=== PATIENT | female | born 1980 | race Caucasian/White ===

== ENCOUNTER 2024-09-06 08:52 | Emergency (ER) | payer MEDICAID ==
[~2024-09-06] VITALS: Ht 152.4 cm; Wt 91.3 kg
[2024-09-06 08:57] VITALS: BP 151/78; PULSE 80; RESP 18; O2SAT 100
[2024-09-06 09:44] VITALS: TEMP 96.9
== END 2024-09-06 09:47 | disposition home or self-care (01) ==
LOC: ER 08:53
DX: E11.69 Type 2 diabetes mellitus with other specified complication (principal); M86.8X8 Other osteomyelitis, other site; Z88.5 Allergy status to narcotic agent; Z79.4 Long term (current) use of insulin
CPT/HCPCS: 99281

== ENCOUNTER 2024-10-11 10:15 | Emergency (ER) | payer MEDICAID ==
[~2024-10-11] VITALS: Ht 172.7 cm; Wt 100.6 kg
[~2024-10-11 10:15] MED LIST: ASEN5TAB SL; ATOR20TA66 PO; BUPR-94 PO; CLON0.2T PO; DIVA-74 PO; DIVA125C10 PO; GABA-1405 PO; HYDR-3965 PO; HYDR50CA5 PO; LANTUS SUBCUT; LOSA-415 PO; OMEP20TA23 PO; TIZA4CAP PO; TRAZ-251 PO
[2024-10-11 10:18] VITALS: TEMP 98
--- NOTE | 2024-10-11 10:54 | Physician Documentation ---
History of Present Illness ~ Chief Complaint: Wound Re-Check Stated Complaint: WOUND RECHECK Time Seen by MD: 10:20 Primary Medical Doctor: [facility] 43-year-old female presents to the ED for a wound check on her right middle toe after having it partially amputated. Denies any pain denies any swelling denies any fevers in his requesting a Toradol shot. Also requesting to have her bandage were placed. States she has been following up with the wound care as directed Day of Onset of Wound: October 11, 2024 Tetanus within 5 years?: No Medication Reconciliation Allergies: Coded Allergies: fentanyl (Unverified Allergy, Severe, 10/11/24) prazosin (Unverified Allergy, Severe, 10/11/24) Scheduled Asenapine Maleate (Saphris), 1 TAB SL TID, (Reported) Atorvastatin Calcium (Atorvastatin Calcium), 40 MG PO DAILY Bupropion Hcl (Wellbutrin Xl), 300 MG PO DAILY Clonidine Hcl (Clonidine Hcl), 1 TAB PO BID Divalproex Sodium (Divalproex Sodium), 750 MG PO HS Divalproex Sodium (Divalproex Sodium), 2 TAB PO BIDBL Gabapentin (Gabapentin), 1 TAB PO TID Insulin Glargine,Hum.rec.anlog* (Lantus*), 21 UNITS SUBCUT BID, (Reported) Losartan Potassium* (Cozaar*), 1 TAB PO DAILY, (Reported) Omeprazole Magnesium (Prilosec Otc), 1 TAB PO BID, (Reported) Trazodone HCl (Trazodone HCl), 3 TAB PO HS Scheduled PRN Hydrocodone Bit/Acetaminophen 5/325 MG ([place] 5/325 MG), 1-2 TAB PO Q6H PRN for pain, (Reported) Hydroxyzine Pamoate (Hydroxyzine Pamoate), 1 CAP PO Q6H PRN for for anxiety/agitation Tizanidine Hcl (Zanaflex), 1 CAP PO Q8H PRN for muscle spasms, (Reported) Discontinued Medications Acetaminophen (Tylenol Arthritis), 2 TAB PO Q8H PRN for pain, (Reported) Lurasidone HCl (Latuda), 1 TAB PO DAILY, (Reported) Lurasidone HCl (Latuda), 1 TAB PO HS, (Reported) Sertraline HCl (Sertraline HCl), 2 TAB PO DAILY, (Reported) Review of Systems All Other Systems at this time: Reviewed and Negative ROS As stated above in the HPI, otherwise all systems are reviewed and negative. Physical Exam Vital Signs: Temperature: 98.0, Source: Temporal, Heart Rate: 80, Respiratory Rate: 18, BP: 138/40, Pulse Oximetry: 100, Weight: 100.600 Progress Results/Orders Results/Orders Completed Orders - HERVE HARE NP Ketorolac Trometh 15mg/Ml Vial (Toradol (10/11/24 10:50) * Additional Wound Care Orders (10/11/24 10:53) Medications Received in ER Medications (Trade) Dose Ordered Sig/Brent Route PRN Reason Start Time Stop Time Status Last Admin Dose Admin (Toradol injection) 15 mg ONCE ONCE IM 10/11/24 10:50 10/11/24 10:51 DC 10/11/24 11:10 15 MG Vital Signs 10/11/24 10/11/24 10/11/24 10/11/24 10:18 11:10 11:13 11:38 Temp 98.0 Pulse 80 68 63 Resp 18 15 15 15 B/P (MAP) 138/40 115/59 (77) 130/60 Pulse Ox 100 99 100 Medical Decision Making Findings Patient was redressed her wound did not show any signs of infection erythema or drainage Departure Disposition: 01 HOME / SELF CARE / HOMELESS Impression: Primary Impression: Non-healing surgical wound Condition: Stable Referrals: NO PRIMARY CARE PROVIDER (PCP) Education Educated: Patient Educated regarding: diagnosis Signature Scribe Signature: j Attestation: The note accurately reflects work and decisions made by me.Herve Dimas NP 10/11/24 18:10 HERVE HARE NP October 11, 2024 10:54
[2024-10-11] MEDS: ketorolac trometh 15mg/ml vial 15 MG/ML ML IM ONE (11:10)
[2024-10-11 11:38] VITALS: BP 130/60; PULSE 63; RESP 15; O2SAT 100
== END 2024-10-11 11:36 | disposition home or self-care (01) ==
LOC: ER 10:15
DX: T81.89XA Other complications of procedures, not elsewhere classified, initial encounter (principal); Z88.8 Allergy status to other drugs, medicaments and biological substances; Z79.899 Other long term (current) drug therapy; Z79.4 Long term (current) use of insulin
CPT/HCPCS: 96372; 99283; J1885; A6449

== ENCOUNTER 2024-11-12 11:43 | Emergency (ER) | payer MEDICAID ==
[~2024-11-12] VITALS: Ht 172.7 cm; Wt 100.8 kg
[2024-11-12 11:44] VITALS: TEMP 97.9
[2024-11-12 13:11] VITALS: BP 178/83; PULSE 57; RESP 10; O2SAT 95
--- NOTE | 2024-11-12 14:09 | Physician Documentation ---
History of Present Illness ~ Chief Complaint: Wound Stated Complaint: SPIDER BITE Time Seen by MD: 12:19 Primary Medical Doctor: [facility] Mode of Arrival: Ambulatory HPI 43 year old female with history of diabetes reports LLE "spider bite" and infection as well as recent bilateral lower extremity swelling. Denies fever, N/V/D, abdominal pain, urinary symptoms. Tetanus within 5 years?: No Medication Reconciliation Allergies: Coded Allergies: fentanyl (Unverified Allergy, Severe, 10/11/24) prazosin (Unverified Allergy, Severe, 10/11/24) Scheduled Asenapine Maleate (Saphris), 1 TAB SL TID, (Reported) Atorvastatin Calcium (Atorvastatin Calcium), 40 MG PO DAILY Bupropion Hcl (Wellbutrin Xl), 300 MG PO DAILY Clonidine Hcl (Clonidine Hcl), 1 TAB PO BID Divalproex Sodium (Divalproex Sodium), 750 MG PO HS Divalproex Sodium (Divalproex Sodium), 2 TAB PO BIDBL Gabapentin (Gabapentin), 1 TAB PO TID Insulin Glargine,Hum.rec.anlog* (Lantus*), 21 UNITS SUBCUT BID, (Reported) Losartan Potassium* (Cozaar*), 1 TAB PO DAILY, (Reported) Omeprazole Magnesium (Prilosec Otc), 1 TAB PO BID, (Reported) Trazodone HCl (Trazodone HCl), 3 TAB PO HS Scheduled PRN Hydrocodone Bit/Acetaminophen 5/325 MG ([place] 5/325 MG), 1-2 TAB PO Q6H PRN for pain, (Reported) Hydroxyzine Pamoate (Hydroxyzine Pamoate), 1 CAP PO Q6H PRN for for anxiety/agitation Tizanidine Hcl (Zanaflex), 1 CAP PO Q8H PRN for muscle spasms, (Reported) Review of Systems All Other Systems at this time: Reviewed and Negative Physical Exam Vital Signs: RN Vital Signs have been reviewed: Yes, Temperature: 97.9, Source: Oral, Heart Rate: 57, Respiratory Rate: 10, BP: 178/83, Pulse Oximetry: 95, Weight: 100.800 Oxygen Flow Rate: 0 Physical Exam HEENT: PERRL, moist oral mucosa, EOMI Pulmonary: No respiratory distress MSK: no deformity; 1-2+ BLE pitting edema Skin: w/d/i, no rash; LLE with 1cm diameter skin ulceration to L [place], with small pustules inferiorly surrounded by erythema. Neuro: alert, nonfocal Psych: normal affect Progress Results/Orders Results/Orders Orders - RODDY VILLALBA MD Cbc/Diff (11/12/24 12:23) CMP (11/12/24 12:23) Urinalysis, Cult If Indicated (11/12/24 12:23) Vital Signs 11/12/24 11/12/24 11/12/24 11:44 13:11 13:13 Temp 97.9 Pulse 78 57 Resp 16 10 B/P (MAP) 174/82 178/83 (114) Pulse Ox 100 95 O2 Flow Rate 0 0 Medical Decision Making Findings 43 year old female as above. Before workup could be completed, patient elected to leave AMA despite thorough discussion of the risks of leaving. Differential Dx:Considerations: Include: Abscess, Cellulitis, Dressing change, Healing wound Departure Disposition: LEFT AGAINST MEDICAL ADVICE Impression: Primary Impression: Leg swelling Condition: Stable Referrals: NO PRIMARY CARE PROVIDER (PCP) Education Educated: Patient Educated regarding: need for follow up Signature Scribe Signature: . Attestation: . RODDY VILLALBA MD Nov 12, 2024 14:08
== END 2024-11-12 14:16 | disposition left against medical advice (07) ==
LOC: ER 11:44
DX: M79.89 Other specified soft tissue disorders (principal); E11.9 Type 2 diabetes mellitus without complications; Z88.8 Allergy status to other drugs, medicaments and biological substances; Z79.899 Other long term (current) drug therapy
CPT/HCPCS: 99284

== ENCOUNTER 2025-01-10 07:56 | Inpatient (IN) | payer MEDICAID ==
[~2025-01-10] VITALS: Ht 172.7 cm; Wt 109.9 kg
--- NOTE | 2025-01-10 08:11 | ELECTROCARDIOGRAPH REPORT ---
[facility] Test Date: 2025-01-10 Test Time: 08:09:48 Pat Name: NINA FERRER Department: [facility] Patient ID: [id number] Room: Gender: F [employer]: : 1980 Requested By: DEBORAH GOODWIN Order Number: [id number] Reading MD: Dr. Deborah Goodwin Measurements Intervals [place] Rate: 62 P: 58 PA: 161 QRS: -15 QRSD: 93 T: 40 QT: 447 QTc: 454 Interpretive Statements Sinus rhythm Borderline left axis deviation Borderline low voltage, extremity leads RSR' in V1 or V2, probably normal variant ST elev, probable normal early repol pattern Electronically Signed On 01-10-2025 12:42:[address] Deborah Goodwin Please click the below link to view image of tracing.
[2025-01-10 08:24] LABS: MEAN PLATELET VOLUME 8.1 FL (7.4-10.4); RED CELL DISTRIBUTION WIDTH 16.0 % (11.5-14.5)
[2025-01-10 08:34] LABS: CREATININE 0.89 MG/DL (0.40-0.90); TOTAL CARBON DIOXIDE 29.3 MMOL/L (24-32); eCRCL 80 ML/MIN; eGFR 68 ML/MIN
--- NOTE | 2025-01-10 08:39 | RADIOLOGY REPORT ---
CHEST RADIOGRAPH Indication: CP Technique: Single frontal view of the chest was obtained COMPARISON: None FINDINGS: Lines and Tubes: None Lungs: Clear Pleura: No effusion. No pneumothorax. Cardiomediastinal contours: Unremarkable Bones: Unremarkable IMPRESSION: 1. No acute disease.
[2025-01-10 08:57] LABS: PRO BRAIN NATRIURETIC PEPTIDE 620 PG/ML (0-125)
--- NOTE | 2025-01-10 10:34 | Physician Documentation ---
History of Present Illness ~ General Chief Complaint: See Chief Complaint Stated Complaint: SOB/LEG SWELLING Time Seen by MD: 10:32 OK to notify your PCP?: Yes Primary Medical Doctor: [facility] Source: patient, RN/, RN notes reviewed, old records Mode of Arrival: EMS Exam Limitations: no limitations History of Present Illness Initial Comments This patient lives at the [facility] and has a constellation of symptoms. Patient states that she has been having increasing edema and swelling of her body but specifically her right lower extremity. Patient also has worsening diabetic foot ulcers that have been draining. She states she has been having fevers chills shakes for the last two days or so but basically two weeks she has been having this gradual swelling with intermittent nausea. Has not taken her blood pressure medications this morning. Patient has been depressed. Patient is oth erwise not feeling well denies any shortness of breath no recent travel or trauma. She has had multiple broken bones specifically her spine and has some chronic pain issues as well. She is here for evaluation. Medication Reconciliation Allergies: Coded Allergies: fentanyl (Unverified Allergy, Severe, 10/11/24) prazosin (Unverified Allergy, Severe, 10/11/24) Scheduled Asenapine Maleate (Saphris), 1 TAB SL TID, (Reported) Atorvastatin Calcium* (Lipitor*), 1 TAB PO DAILY, (Reported) Bupropion HCl (Wellbutrin Sr), 1 TAB PO DAILY, (Reported) Clonidine HCl (Clonidine HCl), 1 TAB PO Q12H, (Reported) Divalproex Sodium (Depakote), 1 TAB PO HS, (Reported) Divalproex Sodium (Depakote), 1 TAB PO BID, (Reported) Gabapentin (Gabapentin), 1 TAB PO Q8H, (Reported) Insulin Glargine,Hum.rec.anlog* (Lantus*), 21 UNITS SUBCUT BID, (Reported) Losartan Potassium* (Cozaar*), 1 TAB PO DAILY, (Reported) Omeprazole Magnesium (Prilosec Otc), 1 TAB PO BID, (Reported) Trazodone Hcl (Trazodone Hcl), 1 TAB PO HS, (Reported) Scheduled PRN Hydrocodone Bit/Acetaminophen 5/325 MG ([place] 5/325 MG), 1-2 TAB PO Q6H PRN for pain, (Reported) Hydroxyzine Pamoate (Hydroxyzine Pamoate), 1 CAP PO Q6H PRN for PRN, (Reported) Tizanidine Hcl (Zanaflex), 1 CAP PO Q8H PRN for muscle spasms, (Reported) Discontinued Medications Atorvastatin Calcium (Atorvastatin Calcium), 40 MG PO DAILY Discontinued Reason: patient no longer taking Bupropion Hcl (Wellbutrin Xl), 300 MG PO DAILY Discontinued Reason: patient no longer taking Clonidine Hcl (Clonidine Hcl), 1 TAB PO BID Discontinued Reason: patient no longer taking Divalproex Sodium (Divalproex Sodium), 750 MG PO HS Discontinued Reason: patient no longer taking Divalproex Sodium (Divalproex Sodium), 2 TAB PO BIDBL Discontinued Reason: patient no longer taking Gabapentin (Gabapentin), 1 TAB PO TID Discontinued Reason: patient no longer taking Hydroxyzine Pamoate (Hydroxyzine Pamoate), 1 CAP PO Q6H PRN for for anxiety/agitation Discontinued Reason: patient no longer taking Trazodone HCl (Trazodone HCl), 3 TAB PO HS Discontinued Reason: patient no longer taking Past Medical History Past Medical History: Hypertension, Diabetes, Chronic Back Pain Past Surgical History: orthopedic surgeries, tubal ligation Smoking Status: Current every day smoker Alcohol Use: None Drug Use: marijuana Review of Systems All Other Systems at this time: Reviewed and Negative Physical Exam Physical Exam Vital Signs: RN Vital Signs have been reviewed: Yes, Temperature: 98.4, Source: Oral, Heart Rate: 78, Respiratory Rate: 16, BP: 154/73, Pulse Oximetry: 98, Weight: 109.900 Oxygen Flow Rate: 0 Physical Exam General: The patient is well developed, well nourished, nontoxic appearing and is in no acute distress. Uncomfortable appearing Skin: [place], warm and dry with no rashes. HEENT: Head was normocephalic and atraumatic. Eyes - pupils equal, round, reactive to light and accommodation. Extraocular movements were intact. Conjunctivae were nonicteric. The mouth and oropharynx were clear with moist mucous membranes. There were no pharyngeal exudates or erythema. Neck: Supple and nontender. There was no jugular venous distention, lymphadenopathy, thyromegaly or masses. Chest: Clear to auscultation bilaterally without wheezes, rales or rhonchi. No accessory muscle use. No dullness to percussion. Heart: Rate regular and rhythmic. S1, S2. No murmurs. Palpation of the chest wall was normal. No rubs or thrills. Abdomen: Soft, nontender and nondistended. Positive bowel sounds. No guarding or rebound. No hepatosplenomegaly or palpable masses. Extremities: Pitting bilateral edema however the right lower extremity has a edema from the ankle to the hip with increased girth no Homans sign no palpable cords. The patient moves all extremities. Pulses were equal and symmetric. 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 On the 5th MP joint is a area of erythema and a 2 cm deep ulcer diabetic ulcer, left ankle there is a large 3 cm open diabetic ulcer with a ring of erythema. Neurologic: Motor sensory grossly intact. Psychologic: The patient was oriented to person, place and time. The patient demonstrated appropriate judgement and insight. Progress Progress Note 2:22 p.m. Discussed the case with hospitalist for admission Results/Orders Reviewed/noted all lab results: Yes Results/Orders Orders - DEBORAH GOODWIN MD Chest,Single View (01/10/25 07:59) Monitor (01/10/25 07:59) Saline Lock (01/10/25 07:59) Oxygen (01/10/25 07:59) Electrocardiogram (01/10/25 07:59) Culture Blood (01/10/25 10:49) Vl Venous (01/10/25 10:49) Culture Blood (01/10/25 13:14) Page Hospitalist (01/10/25 13:52) Fill Out Med Reconciliation (01/10/25 13:52) Losartan Potass Tablet (Cozaar Tablet) (01/10/25 14:30) Hydromorphone 1 Mg/Ml/Pf (Dilaudid Inj.) (01/10/25 15:00) Completed Orders - DEBORAH GOODWIN MD Chest,Single View (01/10/25 07:59) Cbc/Diff (01/10/25 07:59) BMP (01/10/25 07:59) PBNP (01/10/25 07:59) Electrocardiogram (01/10/25 07:59) Hs Troponin I W Calculations (01/10/25 07:59) Hs Troponin I W Calculations (01/10/25 09:59) Hs Troponin I W Calculations (01/10/25 10:59) Procalcitonin (01/10/25 10:49) ESR (01/10/25 10:49) Lacticsepsis (01/10/25 10:49) Vancomycin/Ns 1 Gm Add-[place] (Vancomyc (01/10/25 10:50) Ceftriaxone 2gm/D5w 50ml Bag (Rocephin 2 (01/10/25 10:50) Vl Venous (01/10/25 10:49) C-Reactive Protein (01/10/25 08:16) Liver Panel (01/10/25 08:16) Hydromorphone 1 Mg/Ml/Pf (Dilaudid Inj.) (01/10/25 13:55) Clonidine Tablet (Catapres Tablet) (01/10/25 14:30) Medications Received in ER Medications (Trade) Dose Ordered Sig/Brent Route PRN Reason Start Time Stop Time Status Last Admin Dose Admin Vancomycin HCl 250 ml @ 166 mls/hr ONCE ONCE IV 01/10/25 10:50 01/10/25 12:20 DC 01/10/25 11:33 166 MLS/HR Ceftriaxone Sodium/Dextrose 50 ml @ 100 mls/hr ONCE ONCE IV 01/10/25 10:50 01/10/25 11:19 DC 01/10/25 11:03 100 MLS/HR (Dilaudid inj.) 1 mg ONCE ONCE IV 01/10/25 13:55 01/10/25 13:56 DC 01/10/25 14:24 1 MG (Catapres tablet) 0.2 mg ONCE PO 01/10/25 14:30 01/10/25 14:57 DC 01/10/25 14:47 0.2 MG (Cozaar tablet) 25 mg ONCE PO 01/10/25 14:30 01/10/25 14:45 25 MG Vital Signs 01/10/25 01/10/25 01/10/25 01/10/25 08:06 08:22 09:25 09:27 Temp 98.4 Pulse 65 66 Resp 16 18 B/P (MAP) 168/87 129/56 (80) Pulse Ox 95 96 O2 Delivery Room Air* O2 Flow Rate 0 0 FiO2 N/A 01/10/25 01/10/25 01/10/25 01/10/25 10:21 11:40 12:32 14:24 Pulse 78 81 79 Resp 16 18 16 16 B/P (MAP) 154/73 (100) 162/85 (110) 177/78 (111) Pulse Ox 98 99 100 O2 Flow Rate 0 0 0 01/10/25 14:45 Pulse 70 Laboratory Tests Test 01/10/25 08:16 01/10/25 08:30 01/10/25 11:25 01/10/25 12:11 White Blood Count 8.2 Red Blood Count 4.62 Hemoglobin 11.0 L Hematocrit 35.0 Mean Corpuscular Volume 75.7 L Mean Corpuscular Hemoglobin 23.9 L Mean Corpuscular Hemoglobin Concent 31.5 L Red Cell Distribution Width 16.0 H Platelet Count 400 Mean Platelet Volume 8.1 Neutrophils (%) (Auto) 65.1 Lymphocytes (%) (Auto) 21.9 Monocytes (%) (Auto) 9.9 Eosinophils (%) (Auto) 2.6 Basophils (%) (Auto) 0.5 Neutrophils # (Auto) 5.3 Lymphocytes # (Auto) 1.8 Monocytes # (Auto) 0.8 Eosinophils # (Auto) 0.2 Basophils # (Auto) 0.0 CBC Comment Erythrocyte Sedimentation Rate 27 H Sodium Level 135 Potassium Level 4.4 Chloride Level 98 L Carbon Dioxide Level 29.3 Anion Gap 8 Blood Urea Nitrogen 9 Creatinine 0.89 Estimated GFR/1.73 m2 68 BUN/Creatinine Ratio 10.1 Glucose Level 206 H Calcium Level 9.1 Total Bilirubin 0.3 Direct Bilirubin 0.1 Aspartate Amino Transf (AST/SGOT) 20 Alanine Aminotransferase (ALT/SGPT) 27 Alkaline Phosphatase 102 Troponin I High Sensitivity 7 6 C-Reactive Protein 1.72 H Pro-B-Type Natriuretic Peptide 620 H Total Protein 8.0 Albumin 3.4 Globulin 4.6 H Albumin/Globulin Ratio 0.7 L Chemistry Comments SARS-CoV-2 Antigen (Rapid) Negative Procalcitonin < 0.05 Troponin I High Sens Percent Delta 14 Troponin I Hi Sens Absolute Change -1 Test 01/10/25 13:10 Lactic Acid Level 1.3 Troponin I High Sensitivity 7 Troponin I High Sens Percent Delta 16 Troponin I Hi Sens Absolute Change 1 Re-Evaluation Re-Evaluation : Re-Evaluation: Improved Progress Patient received some pain medications and is feeling a bit better. Patient unfortunately has been off her medications she has a infection MRI will be ordered of her foot to rule out possible osteomyelitis. She has a diabetic foot ulcer. Laboratory work shows an elevated sed rate of 27. However hemoglobin hematocrit is normal at 11 and 35 MCV 75 white count 8 without a left shift. Chemistry has negative troponins blood pressure is quite high she was given clonidine and losartan. She also received pain medications. Chemistries were reassuring and within normal limits. Glucose is 206. C-reactive protein is elevated at 1.72. Lactic acid is reassuring at 1.3 and a negative procalcitonin. Patient received vancomycin and Rocephin. Blood pressure was treated it is quite elevated her pain was treated and was started on antibiotics. She had significant peripheral edema. Her vascular ultrasound was surprisingly negative for DVT. Patient has had multiple amputations already. Patient was then admitted to the hospitalist service for further workup and care. Continuous epic [facility] interpretation shows normal sinus rhythm heart rate 80s, no ectopy, normal, my interpretation. Pulse oximetry monitor interpretation shows normal oxygenation at 99% room air, normal, my interpretation. EKG/XRAY/CT/US/VASC/MRI Chest X-Ray : Additional Comments CHEST RADIOGRAPH Indication: CP Technique: Single frontal view of the chest was obtained COMPARISON: None FINDINGS: Lines and Tubes: None Lungs: Clear Pleura: No effusion. No pneumothorax. Cardiomediastinal contours: Unremarkable Bones: Unremarkable IMPRESSION: 1. No acute disease. Medical Decision Making Additional info obtained from: old records Departure Disposition: ADMITTED INPATIENT Admitted to Inpatient Unit: yes, to hospitalist Admission Level of Care: Ortho with Tele Impression: Primary Impression: Diabetic foot ulcer Qualified Codes: E11.621 - Type 2 diabetes mellitus with foot ulcer; L97.402 - Non-pressure chronic ulcer of unspecified heel and midfoot with fat layer exposed Additional Impressions: Generalized weakness Accelerated hypertension Delirium Condition: Fair Referrals: NO PRIMARY CARE PROVIDER (PCP) Education Educated: Patient Educated regarding: diagnosis Critical Care Note Total Time (mins): 45 Critical Care Note The very real possibility of a deterioration of this patient's condition required the highest level of my preparedness for sudden, emergent intervention. I provided critical care services, which included medication orders, frequent reevaluations of the patient's condition and response to treatment, ordering and reviewing test results, and discussing the case with various consultants. Excludes time spent performing separately billable procedures. The critical care time associated with the care of the patient was. 45 minutes Signature Scribe Signature: . Attestation: The note accurately reflects work and decisions made by me.Deborah Goodwin MD 01/10/25 10:34 DEBORAH GOODWIN MD Jan 10, 2025 10:34
[2025-01-10] MEDS: CefTRIAXone 2gm/D5W 50ml BAG 50 ML IV ONE (11:03)
[2025-01-10] MEDS: vancomycin/NS 1 GM ADD-VANTAGE 250 ML IV ONE (11:33)
--- NOTE | 2025-01-10 11:59 | VASCULAR REPORT ---
Right lower extremity venous duplex Clinical History: edema Comparison: None Findings: Duplex Doppler evaluation of the deep venous system of the right lower extremity from the common femo ral vein to the popliteal vein including color Doppler and spectral/pulsed waveform analysis was perf ormed. The bilateral common femoral vein demonstrates appropriate compressibility and waveform variability. There is compressibility/patency of the great saphenous vein at the proximal thigh. The femoral vein demonstrates appropriate compressibility and waveform variability. The deep femoral vein demonstrates appropriate compressibility and waveform variability. The popliteal vein demonstrates appropriate compressibility and waveform variability. There is normal compressibility at the tibioperoneal trunk. Impression: No right femoropopliteal venous thrombosis. If clinical concern/symptoms persist or worsen, short-interval follow-up study is suggested.
[2025-01-10] MEDS ORDERED: potassium Cl 20 mEq SR tablet PO PRN ×2 (14:30)
[2025-01-10] MEDS ORDERED: glucagon, human recombinant 1mg kit SUBCUT PRN (14:30)
[2025-01-10] MEDS ORDERED: DEXTROSE 15 GM of carb/4 tabs (each vial/BOTTLE has 4 tablets) PO PRN ×2 (14:30)
[2025-01-10] MEDS ORDERED: potassium Cl 40MEQ/1/2NS 520ml 520 ML IV PRN (14:30)
[2025-01-10] MEDS ORDERED: magnesium sulf-water 2g/50mL 50 ML IV PRN (14:30)
[2025-01-10] MEDS ORDERED: HYDROmorphone inj. 0.5 MG/0.5 ML DISP.SYRIN IV PRN (14:30)
[2025-01-10] MEDS ORDERED: magnesium sulf-water 4G/100mL 100 ML IV PRN (14:30)
[2025-01-10] MEDS ORDERED: dextrose 50%-water 50ml dispensing syringe IV PRN ×2 (14:30)
[2025-01-10] MEDS ORDERED: HYDR50CA5 PO (14:44)
[2025-01-10] MEDS ORDERED: GABA-1405 PO (14:44)
[2025-01-10] MEDS ORDERED: DIVA-159 PO (14:44)
[2025-01-10] MEDS ORDERED: DIVA125T2 PO (14:44)
[2025-01-10] MEDS ORDERED: CLON0.2T PO (14:44)
[2025-01-10] MEDS ORDERED: ATOR40TA PO (14:44)
[2025-01-10] MEDS ORDERED: BUPR150T8 PO (14:44)
[2025-01-10] MEDS ORDERED: TRAZ150T78 PO (14:44)
[2025-01-10] MEDS: normal saline 1000ml 1,000 ML IV SCH (15:01)
[2025-01-10] MEDS: VANCOMYCIN 750MG IV in NS 250 ML IV ONE (16:27)
[2025-01-10] MEDS: INSULIN LISPRO 100 UNIT/ML INSULN.PEN MULTI-DOSE SQ SCH ×2 (17:00→17:57)
--- NOTE | 2025-01-10 17:44 | HISTORY AND PHYSICAL ---
History & Physical Providers to CC ~ History of Present Illness Reason for Admit\Complaint: Foul-smelling drainage of the right foot, lower extremity edema History of Present Illness This is a 44-year-old female who presents to the ED with multiple complaints including lower extremity edema for a couple of weeks which has been getting progressively worse the patient is having difficulty lifting in her legs due to the edema. The right lower extremity is noticeably more edematous than the left. A venous ultrasound was negative for DVT on the right lower extremity. The patient also complains of a right foot ulcer that has been present for months however over the past few days there has been a significant foul smelling drainage. The patient's labs are reassuring. The patient also has a significantly elevated blood pressure of 173/75 Allergies: Coded Allergies: fentanyl (Unverified Allergy, Severe, 10/11/24) prazosin (Unverified Allergy, Severe, 10/11/24) Home Medications Home Medications Active Reported Trazodone Hcl 150 Mg Tablet 1 Tab PO HS 30 Days Hydroxyzine Pamoate 50 Mg Capsule 1 Cap PO Q6H PRN 30 Days Gabapentin 600 Mg Tablet 1 Tab PO Q8H 30 Days Depakote (Divalproex Sodium) 250 Mg Tablet.dr 1 Tab PO BID 30 Days Depakote (Divalproex Sodium) 125 Mg Tablet.dr 1 Tab PO HS 30 Days Clonidine HCl 0.2 Mg Tablet 1 Tab PO Q12H 30 Days Wellbutrin Sr (Bupropion HCl) 150 Mg Tablet.er 1 Tab PO DAILY 30 Days Lipitor* (Atorvastatin Calcium) 40 Mg Tablet 1 Tab PO DAILY 30 Days [place] 5/325 MG (Acetaminophen/Hydrocodone Bitart) 5 Mg/325 Mg Tablet 1-2 Tab PO Q6H PRN Prilosec Otc (Omeprazole Magnesium) 20 Mg Tablet.dr 1 Tab PO BID Lantus* (Insulin Glargine) 100 Unit/1 Ml Vial 21 Units SUBCUT BID Zanaflex (Tizanidine HCl) 4 Mg Capsule 1 Cap PO Q8H PRN Saphris (Asenapine Maleate) 5 Mg Tab.subl 1 Tab SL TID Cozaar* (Losartan Potassium) 25 Mg Tablet 1 Tab PO DAILY Past Medical History Past Medical History Rheumatoid arthritis Sheree-Danlos syndrome Diabetic foot ulcer/osteomyelitis Hypertension Type 2 diabetes mellitus Depression/bipolar disorder Past Surgical History Surgical History Comment Amputation of the 4th and 5th toe right foot Lumbar spine diskectomy in December of 2023 and July of 2024 Tubal ligation Cholecystectomy Family History Family History: FH: depression FATHER MOTHER (Heroin use disorder) FH: heart disease Paternal Grandfather Past Social History Social History Comment Smokes half a pack of cigarettes a day, does not drink alcohol, history of methamphetamine inhalation use disorder clean x 2 months. DNR code status ROS ROS Except for positives in the HPI the rest of the 14 point review systems is negative Exam Vitals: Vital Signs Date Time Temp Pulse Resp B/P (MAP) Pulse Ox O2 Delivery O2 Flow Rate FiO2 01/10/25 16:32 66 16 173/75 (107) 97 0 01/10/25 09:27 Room Air* N/A 01/10/25 08:06 98.4 General: Gen. No acute distress alert and oriented 4 Lungs clear to ascultation bilaterally, no wheezes rales or rhonchi appreciated Heart normal sinus rhythm no murmurs rubs or clicks noted Abdomen soft nontender bowel sounds are normoactive Lower extremities no clubbing cyanosis, 2+ pitting edema on the left 3+ pitting edema of the right Note bilateral lateral necrotic foot ulcers right is larger in distribution and has scant drainage Diagnostic Data Last Recorded Lab Results: 01/10/25 0816 01/10/25 0816 Advance Care Planning Advanced Care plannin - 30 Minutes Problems: (1) Diabetic foot ulcer Status: Acute Additional Plan # diabetic foot ulcer- bilateral Acute/subacute infection of the right MRI of the right lower extremity to evaluate for osteomyelitis IV Rocephin and IV vancomycin Wound care consult # accelerated blood pressure IV hydralazine PRN Scheduled IV Lasix Awaiting med reconciliation # type 2 diabetes mellitus on the hyper and hypoglycemic protocol # tobacco use disorder- I offered the patient a nicotine patch she declined- the patient is severely depressed today and cried during my interview thus I did not broach the subject of smoking cessation. # depression/bipolar disorder Awaiting med reconciliation The patient has been hospitalized in the [facility] center for behavioral health previously #Sheree Oscar syndrome # Lumbar spine fracture x2 # status post diskectomy x2 # lower extremity edema # mildly elevated proBNP Evaluate for CHF IV Lasix Echocardiogram # DVT prophylaxis SCDs SQ Lovenox I spent a total of 17 minutes on reviewing various resuscitative measures/ ACP with the patient at the time of admission. The patient has decided on DNR code status Date of Service: Jan 10, 2025 Billing Provider: SRIKANTH DAVIDSON DO Common Visit Codes: [id number] INP/OBS CARE (HIGH) Secondary Visit Codes: [id number] CARE PLAN 30 MINUTES Problem Qualifiers (1) Diabetic foot ulcer: Diabetic foot ulcer location: midfoot Diabetes mellitus type: type 2 L aterality: unspecified laterality Non-pressure ulcer stage: with fat layer exposed Qualified Codes: E11.621 - Type 2 diabetes mellitus with foot ulcer; L97.402 - Non-pressure chronic ulcer of unspecified heel and midfoot with fat layer exposed SRIKANTH DAVIDSON DO Jan 10, 2025 17:44
[2025-01-10] MEDS: PERFLUTREN PROTEIN-A MICROSPHR (Optison) 0.22 MG/ML 3ML VIAL IV ONE (17:51)
[2025-01-10] MEDS ORDERED: hydrALAZINE 20mg/ml inj. IV PRN (17:55)
[2025-01-10] MEDS: K and/or MAG REPLACEMENT MC SCH (20:00)
[2025-01-10 20:30] VITALS: BP 189/86; PULSE 75; RESP 14; TEMP 97.9; O2SAT 97
[2025-01-10] MEDS: ondansetron/PF 4mg/2ml inj IV PRN (20:58)
[2025-01-10] MEDS: docusate sod 100mg capsule PO SCH (21:03)
[2025-01-10] MEDS: enoxaparin 40mg/0.4ml syringe SQ SCH (21:06)
[2025-01-10] MEDS: insulin glargine (Lantus) pen - multi-dose SQ SCH (21:28)
[2025-01-10 21:34] VITALS: BP 128/65; PULSE 65; RESP 15; TEMP 97.9; O2SAT 98
--- NOTE | 2025-01-10 21:38 | RADIOLOGY REPORT ---
CLINICAL HISTORY: diabetic foot ulcer eval for osteomyelitis TECHNIQUE: MRI of the left foot was performed without gadolinium. COMPARISON: None FINDINGS: There has been amputation of the 2nd digit at the MTP joints. There has been amputation of the 3rd di git at the distal metatarsal shaft. There has been amputation of the 5th digit at the MTP joint. Ther e has been probable 1st digit mutation at the IP joint. There is no definite abnormal signal to suggest acute osteomyelitis. There is abnormal signal within the 5th metacarpal head and neck and distal shaft, compatible with bone at risk to develop acute oste omyelitis. There is diffuse soft tissue swelling. There are mild degenerative changes of the 1st MTP joint with osteophyte formation. IMPRESSION: Previous amputations at the 2nd, 3rd, and 5th digits and likely at the 1st digit as above. No MR evid ence for acute osteomyelitis. Abnormal signal at the 5th metacarpal head and neck as well as distal shaft is compatible with bone a t risk to develop acute osteomyelitis.
[2025-01-10 22:00] VITALS: RESP 16; O2SAT 97
[2025-01-11 00:43] VITALS: O2SAT 97
[2025-01-11] MEDS: vancomycin/NS 1 GM ADD-VANTAGE 250 ML X 1 DOSE IV SCH (00:56)
[2025-01-11 05:26] LABS: MEAN PLATELET VOLUME 8.1 FL (7.4-10.4); RED CELL DISTRIBUTION WIDTH 16.2 % (11.5-14.5)
[2025-01-11 05:47] LABS: CREATININE 0.74 MG/DL (0.40-0.90); TOTAL CARBON DIOXIDE 31.0 MMOL/L (24-32); eCRCL 96 ML/MIN; eGFR 84 ML/MIN
[2025-01-11 06:00] VITALS: BP 146/65; PULSE 64; RESP 16; TEMP 97.5; O2SAT 95
[2025-01-11] MEDS: CefTRIAXone/D5W-Rocephin 1gm 50 ML IV SCH (10:11)
--- NOTE | 2025-01-11 10:49 | PROGRESS NOTE ---
Daily Progress Note Providers to CC ~ Antibiotic Timeout Antibiotic Ordered?: Yes Subjective No acute events overnight. Patient examined at bedside. No new complaints, not in acute distress. Patient denies chest pain, sob, palpitations, abdominal pain, n/v/d. MRI shows 5th metacarpal head and neck developing acute osteomyelitis. Consulted cloth grader Dr. Cagle, ID Dr. Dorado. Vss, labs unremarkable. Objective Vital Signs Date Time Temp Pulse Resp B/P (MAP) Pulse Ox O2 Delivery O2 Flow Rate FiO2 01/11/25 10:24 15 01/11/25 06:00 67 01/11/25 06:00 97.5 146/65 (92) 95 Room Air 01/11/25 00:43 0 21 Result Diagram: 01/11/25 0501 01/11/25 0501 Physical Exam General: Generalized weakness, A&Ox 3, NAD HEENT: Normocephalic, PERRLA Neck: Supple, trachea midline, no JVD Chest: Clear to auscultation bilaterally Cardiovascular: RRR, S1&S2 GI: Soft and nontender Extremities: Amputated 1,2,3,5 digits of RLE SENIOR BIOSTATISTICIAN: CN II-XII intact, no focal deficits Musculoskeletal: No paraspinal muscle tenderness, no muscle spasm Skin: Warm and intact Problem\Assessment\Plan Problems/Diagnosis: (1) Diabetic foot ulcer Assessment & Plan Osteomyelitis, RLE Diabetic foot ulcer IDDM -MRI shows 5th metacarpal head and neck developing acute osteomyelitis -vanco/Rocephin, hyper/hypoglycemic protocol, Lantus, consulted cloth grader Dr. Cagle, ID Dr. Dorado Anemia, microcytic -follow iron studies Hypertensive urgency -losartan, amlodipine, prn hydralazine Tobacco use disorder -nicotine patch Depression/bipolar disorder -home buproppion Sheree Oscar syndrome Lumbar spine fracture x2 s/p diskectomy x2 DVT prophylaxis: SCDs, heparin Date of Service: Jan 11, 2025 Billing Provider: GHASSAN APPLE Common Visit Codes: [id number] INP/OBS CARE(HIGH) Problem Qualifiers (1) Diabetic foot ulcer: Qualified Codes: E11.621 - Type 2 diabetes mellitus with foot ulcer; L97.402 - Non-pressure chronic ulcer of unspecified heel and midfoot with fat layer exposed GHASSAN APPLE Jan 11, 2025 10:49
[2025-01-11] MEDS: nicotine 14mg patch - 24hr TD ONE (10:58)
[2025-01-11 11:00] VITALS: BP 155/59; PULSE 64; RESP 14; TEMP 97.8; O2SAT 98
--- NOTE | 2025-01-11 14:09 | VASCULAR REPORT ---
Bilateral Lower Extremity Arterial Duplex Clinical History: Bilateral lower extremity pain Comparison: None Technique: Duplex Doppler evaluation including color Doppler and spectral/pulsed waveform analysis of the lower extremity arteries was performed. Findings: RIGHT: Peak systolic velocities are as follows: INSURANCE CLAIMS EXAMINER 148 cm/s Deep femoral 135 cm/s SFA proximal 190 cm/s SFA mid-portion 243 cm/s SFA distal 231 cm/s Popliteal 141 cm/s Posterior tibial 150 cm/s Anterior tibial 95 cm/s Peroneal 92 cm/s Dorsalis pedis 95 cm/s The waveforms are multiphasic. LEFT: Peak systolic velocities are as follows: INSURANCE CLAIMS EXAMINER 151 cm/s Deep femoral 164 cm/s SFA proximal 288 cm/s SFA mid-portion 189 cm/s SFA distal 219 cm/s Popliteal 258 cm/s Posterior tibial 100 cm/s Anterior tibial 69 cm/s Peroneal 95 cm/s Dorsalis pedis 69 cm/s The waveforms are triphasic with diastolic flow. IMPRESSION: 50-75% stenosis of bilateral superficial femoral arteries and left popliteal artery based on peak sys tolic velocity criteria. REFERENCE VALUES, [facility] ([facility]) vascular Imaging Lab Criteria:Peak systolic velocity range s (in cm/sec) are as follows: <150 cm/s - <20 % stenosis 150-200 cm/s - 20-49% stenosis 200-300 cm/s - 50-75% stenosis >300 cm/s -> 75% stenosis
[2025-01-11] MEDS: VANCOMYCIN LEVEL IV ONE (15:30)
[2025-01-11] MEDS: JUVEN Smoothie Arginine/Glut./Ca2+Bmb (Juven 19.3pkt) 240ml cup PO SCH (17:30)
[2025-01-11 18:00] VITALS: BP 134/83; PULSE 67; RESP 14; TEMP 97.5; O2SAT 98
--- NOTE | 2025-01-11 18:29 | CARDIOLOGY REPORT ---
APPROVED REPORT EXAM: Comprehensive 2D, Doppler, and color-flow Echocardiogram. Patient Location: [facility] [place] Blood Pressure: 154/73 mmHg Heart Rate: 74 bpm Rhythm: NSR Indications CONGESTIVE HEART FAILURE PROBNP 670 EDEMA DIABETES MELITUS HTN SMOKER 2D Dimensions RVDd 4.0 cm IVSd 0.9 (0.7-1.1cm) LVDd 4.8 cm PWd 0.2 (0.7-1.1cm) IVSs 1.1 (0.8-1.2cm) LVDs 3.2 (2.5-4.0cm) PWs 1.6 (0.8-1.2cm) LVOT Diameter 2.03 (1.8-2.4cm) LVEF(%) 61.8 (>50%) FS (%) 33.2 % SV 66.0 ml CO 11.5 L/min M-Mode Dimensions Left Atrium(MM) 5.27 (2.5-4.0cm) Aortic Root 3.34 (2.2-3.7cm) Aortic Cusp Exc 1.94 (1.5-2.0cm) Aortic Valve AoV Peak Brandan. 143.4 cm/s AoV VTI 31.1 cm AO Peak GR. 8.2 mmHg AO Mean GR. 4 mmHg LVOT VTI 23.81 cm LVOT Peak Brandan. 93.2 cm/s ELIUD(VTI)/BSA 2.48 cm2/m2 ELIUD (VTI) 2.48 cm2 Mitral Valve MV E Velocity 94.5 cm/s MV Peak Gr. 5 mmHg MV A Velocity 44.1 cm/s MV PHT 56 ms E/A Ratio 2.1 MVA (PHT) 3.93 cm2 MV XGwc652.7 cm/s Tricuspid Valve TR P. Velocity 267 cm/s RAP ESTIMATE 5 mmHg TR Peak Gr. 29 mmHg RVSP 34 mmHg LEFT VENTRICLE Normal LV size and wall thickness. Overall systolic function is normal. Overall LVEF is 60-65%. RIGHT VENTRICLE Right ventricle is mildly dilated with normal function. RVSP = 34 mmHg. ATRIA Left atrium is severely dilated. Right atrium is moderately dilated. AORTIC VALVE Trileaflet AV appears mildly sclerotic without stenosis. Trace insufficiency. MITRAL VALVE The mitral valve is normal in structure. Trace regurgitation. TRICUSPID VALVE TV appears structurally normal with mild regurgitation. PULMONIC VALVE Pulmonic valve is not well visualized. GREAT VESSELS The aortic root is normal in size. The IVC is normal in size and collapses >50% with inspiration. PERICARDIUM Normal pericardium. No effusion. Other Information Study Quality: Adequate Conclusion Overall LVEF is 60-65%. Normal LV size and wall thickness. Overall systolic function is normal. Right ventricle is mildly dilated with normal function. RVSP = 34 mmHg. Trileaflet AV appears mildly sclerotic without stenosis. Trace insufficiency. The mitral valve is normal in structure. Trace regurgitation. TV appears structurally normal with mild regurgitation. Normal pericardium. No effusion.
--- NOTE | 2025-01-11 18:31 | CONSULTATION REPORT ---
History of Present Illness Providers to CC ~ Reason for Admit\Admit Dx: Foul-smelling drainage of the right foot, lower extremity edema Refering MD: Sunita [facility] Allergies: Coded Allergies: fentanyl (Unverified Allergy, Severe, 10/11/24) prazosin (Unverified Allergy, Severe, 10/11/24) Home Medications Home Medications Active Reported Trazodone Hcl 150 Mg Tablet 1 Tab PO HS 30 Days Hydroxyzine Pamoate 50 Mg Capsule 1 Cap PO Q6H PRN 30 Days Gabapentin 600 Mg Tablet 1 Tab PO Q8H 30 Days Depakote (Divalproex Sodium) 250 Mg Tablet.dr 1 Tab PO BID 30 Days Depakote (Divalproex Sodium) 125 Mg Tablet.dr 1 Tab PO HS 30 Days Clonidine HCl 0.2 Mg Tablet 1 Tab PO Q12H 30 Days Wellbutrin Sr (Bupropion HCl) 150 Mg Tablet.er 1 Tab PO DAILY 30 Days Lipitor* (Atorvastatin Calcium) 40 Mg Tablet 1 Tab PO DAILY 30 Days [place] 5/325 MG (Acetaminophen/Hydrocodone Bitart) 5 Mg/325 Mg Tablet 1-2 Tab PO Q6H PRN Prilosec Otc (Omeprazole Magnesium) 20 Mg Tablet.dr 1 Tab PO BID Lantus* (Insulin Glargine) 100 Unit/1 Ml Vial 21 Units SUBCUT BID Zanaflex (Tizanidine HCl) 4 Mg Capsule 1 Cap PO Q8H PRN Saphris (Asenapine Maleate) 5 Mg Tab.subl 1 Tab SL TID Cozaar* (Losartan Potassium) 25 Mg Tablet 1 Tab PO DAILY Past Family History Family History: FH: depression FATHER MOTHER (Heroin use disorder) FH: heart disease Paternal Grandfather Physical Exam Last Vital Signs Recorded: Temperature: 97.8, Source: Oral, Heart Rate: 64, Respiratory Rate: 15, BP: 155/59, Pulse Oximetry: 98, Weight: 109.900 Physical Exam GEN: pt is NAD and AAOx3 DERM: wound sub 5th met head to rachel right foot with necrotic base and purulent drainage and surroubnding erythema. wound to lateral mal wth necrotic base and surrounding erythema and purulent drainage. wound lateral mal left LE with necrotic base and purulent drainage NEURO: sensation diminished to the BL LE VASCL pedalpulses palpable MSK: amputation to multiple digits to rachel R foot Results Diagram Lab Result Diagram: 01/11/25 0501 01/11/25 0501 Assessment/Plan Additional Plan Pt seen and evaluated imaging reviewed arterial US shows stenosis BL - recommend vascular consult as this may be contributing to non-healing wounds to Bl LE MRI: shows edema to the right 5th metatarsal which likely represents osteomyelitis to the 5th metatarsal discussed surgical and non0-surgical options with the pt in detail including local wound care and abx, TMA, and 5th resection - pt opts for 5th met resection if vascular feels there is sufficient blood flow to heal will plan for surgical intervention XR to Bl ankles ordered to asses bony structure adjacent to ankle wounds KEISHA SUMNER DPM Jan 11, 2025 18:31
--- NOTE | 2025-01-11 20:00 | RADIOLOGY REPORT ---
CLINICAL HISTORY: BILAT ANKLE PAIN/WOUNDS TECHNIQUE: 3 views of the left ankle were obtained. COMPARISON: None FINDINGS: No acute fracture or dislocation is seen. The ankle mortise is intact. There is mild soft tissue swel ling. There is a large plantar calcaneal spur. IMPRESSION: Mild soft tissue swelling. No acute osseus abnormality seen.
--- NOTE | 2025-01-11 20:00 | RADIOLOGY REPORT ---
CLINICAL HISTORY: wounds to BL ankle TECHNIQUE: 3 views of the left ankle were obtained. COMPARISON: None FINDINGS: No acute fracture or dislocation is seen. The ankle mortise is intact. There is lateral ankle soft ti ssue swelling with a soft tissue wound. There is a small plantar calcaneal spur. Vascular calcificati ons are present. IMPRESSION: Lateral ankle soft tissue swelling with soft tissue wound. No acute osseus abnormality seen.
[2025-01-11 22:00] VITALS: BP 156/64; PULSE 71; RESP 16; TEMP 97.4; O2SAT 94
[2025-01-11] MEDS: heparin, porcine 5000 units/ml vial SQ SCH (22:39)
[2025-01-11] MEDS: divalproex 250mg tablet, delayed-release PO SCH (22:41)
[2025-01-11] MEDS: divalproex sod 125mg tablet.DR PO SCH (22:41)
[2025-01-11] MEDS: insulin glargine (Lantus) pen - multi-dose SQ ONE (23:43)
[2025-01-11] MEDS: INSULIN LISPRO 100 UNIT/ML INSULN.PEN MULTI-DOSE SQ ONE (23:43)
[2025-01-12 06:00] VITALS: BP 178/79; PULSE 68; RESP 16; TEMP 96.9; O2SAT 98
[2025-01-12 06:57] LABS: % IRON SATURATION 8 % (11-46)
[2025-01-12 07:01] LABS: CREATININE 0.74 MG/DL (0.40-0.90); TOTAL CARBON DIOXIDE 30.4 MMOL/L (24-32); eCRCL 96 ML/MIN; eGFR 84 ML/MIN
[2025-01-12] MEDS: buPROPion SR 150mg tablet PO SCH (07:51)
[2025-01-12 08:00] VITALS: RESP 18; O2SAT 96
[2025-01-12] MEDS: nicotine 14mg patch - 24hr TD SCH (08:00)
[2025-01-12 10:00] VITALS: BP 159/76; PULSE 68; RESP 16; TEMP 98.9; O2SAT 98
--- NOTE | 2025-01-12 10:16 | PROGRESS NOTE ---
Daily Progress Note Providers to CC ~ Antibiotic Timeout Antibiotic Ordered?: Yes Subjective No acute events overnight. Patient examined at bedside. No new complaints, not in acute distress. Patient denies chest pain, sob, palpitations, abdominal pain, n/v/d. Vss, lab findings consistent with JOHN, started iron supplement. MRI showed 5th metacarpal head and neck developing acute osteomyelitis. OR tomorrow. Objective Vital Signs Date Time Temp Pulse Resp B/P (MAP) Pulse Ox O2 Delivery O2 Flow Rate FiO2 01/12/25 07:51 68 01/12/25 07:50 16 01/11/25 22:00 97.4 156/64 (94) 94 Room Air 01/11/25 00:43 0 21 Result Diagram: 01/11/25 0501 01/12/25 0608 Physical Exam General: Generalized weakness, A&Ox 3, NAD HEENT: Normocephalic, PERRLA Neck: Supple, trachea midline, no JVD Chest: Clear to auscultation bilaterally Cardiovascular: RRR, S1&S2 GI: Soft and nontender Extremities: Amputated 1,2,3,5 digits of RLE LAP MACHINE TENDER: CN II-XII intact, no focal deficits Musculoskeletal: No paraspinal muscle tenderness, no muscle spasm Skin: Right 5th metacarpal drainage Problem\Assessment\Plan Problems/Diagnosis: (1) Diabetic foot ulcer Assessment & Plan Osteomyelitis, RLE Diabetic foot ulcer IDDM -MRI shows 5th metacarpal head and neck developing acute osteomyelitis -vanco/Rocephin, hyper/hypoglycemic protocol, Lantus, consulted mechanist Dr. Cagle, ID Dr. Dorado -01/12: OR tomorrow Anemia, microcytic -iron studies consistent with JOHN, start iron supplement Hypertensive urgency -losartan, amlodipine, prn hydralazine Tobacco use disorder -nicotine patch Depression/bipolar disorder -home buproppion Sheree Oscar syndrome Lumbar spine fracture x2 s/p diskectomy x2 DVT prophylaxis: SCDs, heparin Code Status: Full code Date of Service: Jan 12, 2025 Billing Provider: GHASSAN APPLE [employer] STORE Common Visit Codes: [id number] INP/OBS CARE(HIGH) Problem Qualifiers (1) Diabetic foot ulcer: Qualified Codes: E11.621 - Type 2 diabetes mellitus with foot ulcer; L97.402 - Non-pressure chronic ulcer of unspecified heel and midfoot with fat layer exposed GHASSAN APPLE DEC[employer]ATOR STORE Jan 12, 2025 10:16
[2025-01-12] MEDS: iron dextran complex inj. 75 MG in normal saline 100ml IV soln 100 ML IV ONE (10:20)
[2025-01-12] MEDS: iron dextran complex inj. 25 MG in normal saline 100ml IV soln 100 ML IV ONE (10:20)
--- NOTE | 2025-01-12 10:20 | Visit Coding Note ---
Date of Service: Jan 11, 2025 Billing Provider: GHASSAN APPLE Common Visit Codes: NOT BILLABLE Secondary Visit Codes: [id number] CARE PLAN 30 MINUTES GHASSAN APPLE Jan 12, 2025 10:20
[2025-01-12 12:15] LABS: MEAN PLATELET VOLUME 8.0 FL (7.4-10.4); RED CELL DISTRIBUTION WIDTH 16.1 % (11.5-14.5)
[2025-01-12] MEDS ORDERED: lactose-reduced food (Ensure High Protein) 237ml bottle PO SCH (12:30)
[2025-01-12] MEDS: lactose-reduced food (Ensure Enlive) - 237ml bottle PO SCH (13:00)
[2025-01-12 18:00] VITALS: BP 176/87; PULSE 78; RESP 16; TEMP 98.3; O2SAT 94
[2025-01-12 20:00] VITALS: RESP 16; O2SAT 95
[2025-01-12] MEDS: magnesium hydroxide 30ml (MOM) UD suspension PO PRN (20:34)
[2025-01-12 22:00] VITALS: BP 161/77; PULSE 74; RESP 16; TEMP 98.2; O2SAT 95
[2025-01-12] MEDS: insulin glargine (Lantus) pen - multi-dose SQ SCH (22:01)
[2025-01-13] VITALS (17 sets, daily range): BP systolic 146–204; BP diastolic 57–97; PULSE 68–98; RESP 13–16; TEMP 97.5–97.9; O2SAT 90–100
[2025-01-13 05:13] LABS: HBSAG SCREEN Negative (Negative); HEP B CORE AB, IGM Negative (Negative); HEP B CORE AB, TOT Negative (Negative)
[2025-01-13] MEDS: iron dextran complex inj. 100 MG in normal saline 100ml IV soln 100 ML IV SCH (09:12)
[2025-01-13 11:12] LABS: MEAN PLATELET VOLUME 7.8 FL (7.4-10.4); RED CELL DISTRIBUTION WIDTH 15.9 % (11.5-14.5)
--- NOTE | 2025-01-13 11:14 | PROGRESS NOTE ---
Daily Progress Note Providers to CC ~ Antibiotic Timeout Antibiotic Ordered?: Yes Subjective No acute events overnight. Patient examined at bedside. No new complaints, not in acute distress. Patient denies chest pain, sob, palpitations, abdominal pain, n/v/d. Vss, labs unremarkable. MRI showed 5th metacarpal head and neck developing acute osteomyelitis. OR today. Objective Vital Signs Date Time Temp Pulse Resp B/P (MAP) Pulse Ox O2 Delivery O2 Flow Rate FiO2 01/13/25 06:00 97.8 68 16 159/79 (105) 90 Room Air 01/11/25 00:43 0 21 Result Diagram: 01/13/25 1033 01/12/25 0608 Physical Exam General: Generalized weakness, A&Ox 3, NAD HEENT: Normocephalic, PERRLA Neck: Supple, trachea midline, no JVD Chest: Clear to auscultation bilaterally Cardiovascular: RRR, S1&S2 GI: Soft and nontender Extremities: Amputated 1,2,3,5 digits of RLE SUPERVISOR VENDOR QUALITY: CN II-XII intact, no focal deficits Musculoskeletal: No paraspinal muscle tenderness, no muscle spasm Skin: Right 5th metacarpal drainage Problem\Assessment\Plan Problems/Diagnosis: (1) Diabetic foot ulcer Assessment & Plan Osteomyelitis, RLE Diabetic foot ulcer IDDM -MRI shows 5th metacarpal head and neck developing acute osteomyelitis -vanco/Rocephin, hyper/hypoglycemic protocol, Lantus, consulted fashion buying internship Dr. Cagle, ID Dr. Dorado -01/12: OR tomorrow -01/13: OR Anemia, microcytic -iron studies consistent with JOHN, start iron supplement Hypertensive urgency -losartan, amlodipine, prn hydralazine Tobacco use disorder -nicotine patch Depression/bipolar disorder -home buproppion Sheree Oscar syndrome Lumbar spine fracture x2 s/p diskectomy x2 DVT prophylaxis: SCDs, heparin Code Status: Full code Date of Service: Jan 13, 2025 Billing Provider: GHASSAN APPLE Common Visit Codes: [id number] INP/OBS CARE(HIGH) Problem Qualifiers (1) Diabetic foot ulcer: Qualified Codes: E11.621 - Type 2 diabetes mellitus with foot ulcer; L97.402 - Non-pressure chronic ulcer of unspecified heel and midfoot with fat layer exposed GHASSAN APPLE Jan 13, 2025 11:14
[2025-01-13 11:26] LABS: CREATININE 0.72 MG/DL (0.40-0.90); TOTAL CARBON DIOXIDE 30.4 MMOL/L (24-32); eCRCL 98 ML/MIN; eGFR 87 ML/MIN
[2025-01-13] MEDS ORDERED: enalaprilat 1.25mg/ml 2ml vial IV PRN (15:10)
[2025-01-13] MEDS ORDERED: meperidine/PF 25mg/ml syringe IV PRN ×3 (15:10)
[2025-01-13] MEDS ORDERED: ondansetron/PF 4mg/2ml inj IV PRN (15:10)
[2025-01-13] MEDS ORDERED: bacitracin 15gm ointment TP ONE (16:47)
[2025-01-13] MEDS ORDERED: vancomycin 1,000mg inj ONE ×2 (17:17→18:05)
[2025-01-13] MEDS ORDERED: BUPIVAcaine/PF 2.5mg/ml (0.25%) 10ml vial ONE (17:17)
[2025-01-13] MEDS ORDERED: fentaNYL/PF 50MCG/1 ML 2ML syringe ONE (17:30)
[2025-01-13] MEDS ORDERED: midazolam 1 mg/ML 2ml injection ONE (17:30)
[2025-01-13] MEDS ORDERED: propofol inj 20 ML IV ONE (17:31)
[2025-01-13] MEDS ORDERED: LIDOcaine 2% (20mg/ml) 5ml vial ONE (17:31)
[2025-01-13] MEDS ORDERED: PCA WASTE DOCUMENTATION 1 MG ML MC SCH (18:15)
[2025-01-13] MEDS ORDERED: morphine 4 MG/ML inj SYRINge ONE (18:19)
--- NOTE | 2025-01-13 18:19 | PROGRESS NOTE ---
Progress Progress Note: S/P Bl ankle wound debridement and right 5th met resection wound care orders placed mcro and path sent abx per medical team recs Exam Exam S/P Bl ankle wound debridement and right 5th met resection Results/Orders Result Diagram: 01/13/25 1033 01/13/25 1033 Re-Evaluation Re-Evaluation : Re-Evaluation: Improved Dietary Evaluation Recommendations by RD: Increase Calorie Intake, Protein Supplementation, Other - see comments Comments: III 01/14 +wnd^proDMdn F/u 01/12: Pt continues to refuse meals though did drink [employer]rose smoothie w/ persistent nausea confirmed this AM per RN. Pt/SO seen by RD at bedside for written/verbal high protein/DM diet eds w/ RD contact information and [employer]rose ONS coupon provided. Pt/SO report currently living at the [place] since car broke down w/ limited finances and food at [place] is mostly carbs w/ little proteins. Pt report was in process of setting up [employer] Whe[employer] but unsure if deliver to [place]. Per pt, has been using 30 units Lantus BID increasing since only access to food is high CHO options and takes sliding scale Humalog. RD notified NURSE STAFF of recs for social insurance analyst consult given pt life situation. Pt confirms nausea persists but understands ONS importance for wound healing; is agreeable changing ONS to chocolate Ensure Plus HP TIDWM in meantime while intake is lower- dietary notified. RD encouraged pt/SO to contact dietitian's office if further nutrition questions/concerns. RD paged NURSE STAFF regarding routine MVM w/ Fe supplementation for wound healing given poor initial PO if agreeable. Rec: 1. Continue heart healthy/75g carb controlled diet per physician 2. Chocolate Ensure Enlive TIDWM while poor meals acceptance; encourage PO meals/ONS. 3. Routine MVM w/ Fe for wound healing needs if physician agreeable; NURSE STAFF paged 01/12 4. Routine bowel regimen; utilize anti-emetics w/ persistent nausea per physician 5. Weekly wt Expected Outcomes/Goals: maintain stable wt, meet at least ~75% estimated nutrient needs, ONS acceptance, bowel regularity, wound healing, Glu 80-180mg/dl KEISHA SUMNER DPEvan Jan 13, 2025 18:19
[2025-01-13] MEDS: morphine 4 MG/ML inj SYRINge IV PRN (18:32)
[2025-01-13] MEDS: ringers solution, lacted 1,000 ML IV SCH (18:35)
[2025-01-13] MEDS: labetalol 20mg/4ml (5mg/ml) syringe IV PRN (18:41)
[2025-01-14] MEDS: mag hydrox/Alum hydrox/simeth 30ml oral suspension PO PRN (00:03)
[2025-01-14 02:00] VITALS: BP 148/79; PULSE 74; RESP 16; TEMP 98.2; O2SAT 94
[2025-01-14] MEDS: hydrALAZINE 20mg/ml inj. IV PRN (05:28)
[2025-01-14 06:00] VITALS: BP 177/83; PULSE 75; RESP 16; TEMP 97.4; O2SAT 94
[2025-01-14 06:22] LABS: MEAN PLATELET VOLUME 7.6 FL (7.4-10.4); RED CELL DISTRIBUTION WIDTH 16.8 % (11.5-14.5)
[2025-01-14 06:47] LABS: CREATININE 0.89 MG/DL (0.40-0.90); TOTAL CARBON DIOXIDE 30.0 MMOL/L (24-32); eCRCL 80 ML/MIN; eGFR 68 ML/MIN
[2025-01-14 10:04] VITALS: BP 162/82; PULSE 86; RESP 18; TEMP 97.6; O2SAT 96
[2025-01-14 10:42] VITALS: BP 151/56
[2025-01-14] MEDS ORDERED: LOSA50TA64 PO (11:57)
[2025-01-14] MEDS ORDERED: AMOX-580 PO (11:57)
[2025-01-14] MEDS ORDERED: DOXY-224 PO (11:57)
[2025-01-14] MEDS ORDERED: NOR5T PO (11:57)
[2025-01-14] MEDS ORDERED: LANTUS SQ (11:57)
[2025-01-14] MEDS ORDERED: FER325T PO (11:57)
[2025-01-14 13:04] VITALS: BP_SYST 150; PULSE 78
--- NOTE | 2025-01-14 15:19 | DISCHARGE SUMMARY ---
Discharge Summary Providers to CC ~ Discharge Summary Admission Diagnosis: diabetic foot ulcer, osteomyelitis Hospital Course DATE OF ADMISSION: 01/10/25 DATE OF DISCHARGE: 01/14/25 Discharge Diagnosis\\Comment: Osteomyelitis, RLE Diabetic foot ulcer, b/l ankles IDDM Uncontrolled diabetes Hyperglycemia Anemia, microcytic Fe-deficiency anemia Hypertensive urgency Tobacco use disorder Depression/bipolar disorder Sheree Oscar syndrome Lumbar spine fracture x2 s/p diskectomy x2 Operations\\Procedures: Bilateral ankle wound debridement and right 5th metacarpal resection Consultants: Skyler Jackson Dr. Complications: None Condition on DC: Stable New Medications: Amlodipine Besylate (Amlodipine Besylate) 5 Mg Tablet 2 TAB PO DAILY for 30 Days, #60 TAB 0 Refills Doxycycline Hyclate (Doxycycline Hyclate) 100 Mg Capsule 1 CAP PO Q12H for 14 Days, #28 CAP Ferrous Sulfate (Ferrous Sulfate) 325 Mg (65 Mg Iron) Tablet 1 TAB PO DAILY for 90 Days, #90 TAB 0 Refills Take 1 tablet by mouth on an empty stomach once daily Amox Tr/Potassium Clavulanate 875/125 MG (Augmentin 875/125 MG) 875 Mg-125 Mg Tablet 1 TAB PO BID@0830,1730 for 14 Days, #28 TAB Insulin Glargine,Hum.rec.anlog* (Lantus*) 100 Unit/1 Ml Vial 14 UNIT SQ HS for 90 Days, #13 ML Losartan Potassium (Losartan Potassium) 50 Mg Tablet 2 TAB PO DAILY for 30 Days, #60 TAB Continued Medications: Asenapine Maleate (Saphris) 5 Mg Tab.subl 1 TAB SL TID, TAB Atorvastatin Calcium* (Lipitor*) 40 Mg Tablet 1 TAB PO DAILY for 30 Days, #30 TAB Bupropion HCl (Wellbutrin Sr) 150 Mg Tablet.er 1 TAB PO DAILY for 30 Days, #60 TAB 0 Refills Divalproex Sodium (Depakote) 125 Mg Tablet.dr 1 TAB PO HS for 30 Days, #60 TAB 0 Refills Divalproex Sodium (Depakote) 250 Mg Tablet.dr 1 TAB PO BID for 30 Days, #60 TAB 0 Refills Gabapentin (Gabapentin) 600 Mg Tablet 1 TAB PO Q8H for 30 Days, #90 TAB 0 Refills Hydrocodone Bit/Acetaminophen 5/325 MG (Lillian 5/325 MG) 5 Mg/325 Mg Tablet 1-2 TAB PO Q6H PRN for pain, TAB Hydroxyzine Pamoate (Hydroxyzine Pamoate) 50 Mg Capsule 1 CAP PO Q6H PRN for PRN for 30 Days, #90 CAP 0 Refills Omeprazole Magnesium (Prilosec Otc) 20 Mg Tablet.dr 1 TAB PO BID, TAB Tizanidine Hcl (Zanaflex) 4 Mg Capsule 1 CAP PO Q8H PRN for muscle spasms, CAP Trazodone Hcl (Trazodone Hcl) 150 Mg Tablet 1 TAB PO HS for 30 Days, #30 TAB 0 Refills Discontinued Medications: Clonidine HCl (Clonidine HCl) 0.2 Mg Tablet 1 TAB PO Q12H for 30 Days, #60 TAB 0 Refills Insulin Glargine,Hum.rec.anlog* (Lantus*) 100 Unit/1 Ml Vial 21 UNITS SUBCUT BID, ML Losartan Potassium* (Cozaar*) 25 Mg Tablet 1 TAB PO DAILY, TAB Discharge Summary: History of Present Illness From H&P: "This is a 44-year-old female who presents to the ED with multiple c omplaints including lower extremity edema for a couple of weeks which has been getting progressively worse the patient is having difficulty lifting in her legs due to the edema. The right lower extremity is noticeably more edematous than the left. A venous ultrasound was negative for DVT on the right lower extremity. The patient also complains of a right foot ulcer that has been present for months however over the past few days there has been a significant foul smelling drainage. The patient's labs are reassuring. The patient also has a significantly elevated blood pressure of 173/75." Hospital Course Diagnostic findings were notable for profoundly elevated blood pressure, hyperglycemia, A1c 11.0%, MRI revealing 5th metacarpal head and neck developing acute osteomyelitis. Pertinent negative findings were normal lactic acid, negative protocol, wnl bicarb, normal anion gap. Patient was started on empirical antibiotics, antihypertensives, insulin, wound care, supportive care. Case was consulted with pants presser Dr. Cagle. Patient underwent bilateral ankle wound debridement and right 5th metacarpal resection with clear margins. Case was discussed with ID Elver Mcnair who is agreeable with discharge on oral empirical antibiotics as margins were clear. Patient did not experience further complications throughout the entire hospital stay. Patient was seen and examined on the day of discharge. On day of discharge, vss and labs unremarkable. Preliminary blood cultures remain negative until the day of discharge. All labs, diagnostic workups, discharge plan discussed with patient in details during visit before discharge. All questions and concerns answered to the best of my professional knowledge. Patient is to be discharged to [place] and to follow-up with Dr. Cagle within 2 weeks. Patient is referred to outpatient [facility] Care [facility] upon discharge. Physical Exam General: A&Ox 3, NAD HEENT: Normocephalic, PERRLA Neck: Supple, trachea midline, no JVD Chest: Clear to auscultation bilaterally Cardiovascular: RRR, S1&S2 GI: Soft and nontender Extremities: Amputated 1,2,3,5 digits of RLE ACADEMIC SUPPORT SPECIALIST: CN II-XII intact, no focal deficits Musculoskeletal: No paraspinal muscle tenderness, no muscle spasm Skin: s/p right 5th metacarpal resection without s/s infection, debrided b/l ankles *Problems/Diagnosis: (1) Diabetic foot ulcer Status: Acute Total Time Spent on D/C: > 30 Minutes Date of Service: Jan 14, 2025 Billing Provider: GHASSAN APPLE Common Visit Codes: 18040-FCJ/OBS DISCH DAY >30min Problem Qualifiers (1) Diabetic foot ulcer: Qualified Codes: E11.621 - Type 2 diabetes mellitus with foot ulcer; L97.402 - Non-pressure chronic ulcer of unspecified heel and midfoot with fat layer exposed GHASSAN APPLE Jan 14, 2025 15:19
[2025-01-14] MEDS ORDERED: insulin glargine (Lantus) pen - multi-dose SQ SCH (21:00)
[2025-01-15] MEDS ORDERED: amox tr/potassium clavulanate 875/125mg TAB PO SCH (08:30)
--- NOTE | 2025-01-18 11:36 | PATHOLOGY REPORT ---
[facility] [address] [place] [address] SURGICAL PATHOLOGY REPORT CaseNumber: [id number] Surgeon:Skyler Cagle M.D. CLINICAL INFORMATION CLINICAL INFORMATION: Patient with shortness of breath, swelling in leg. Diabetic foot infection/ulce ration. DIAGNOSIS DIAGNOSIS: BONE, RIGHT 5TH METATARSAL; AMPUTATION - BENIGN BONE. - NEGATIVE FOR ACUTE OSTEOMYELITIS. MICROSCOPIC DESCRIPTION MICROSCOPIC DESCRIPTION: Two H&E stained slides of a bone resection are reviewed. The slide slide tammy ws benign bone. There is no neutrophilic infiltrate in the marrow spaces. GROSS DESCRIPTION GROSS DESCRIPTION: Received in a container of formalin labeled with the patient's name, number, and " right fifth metatarsal bone" is an irregularly shaped piece of bone which measures 3.5 x 2.5 x 0.7 cm . Bottomer Operator sections are submitted as A1-A2 following decalcification. The time at which the spe cimen was removed was 1800. The time at which the specimen was placed in formalin was 1804. ([facility]) Electronically signed by: Hector Dumont, 01/18/2025 11:06:00 AM
--- NOTE | 2025-02-16 09:24 | OPERATIVE REPORT ---
DATE OF SURGERY: 01/13/2025 DICTATING PHYSICIAN: Skyler Cagle DPM DATE OF SURGERY: 01/13/2025 PREOPERATIVE DIAGNOSES: Chronic wound probes to bone and osteomyelitis to right fifth metatarsal and bilateral lateral ankle wounds down to the level of muscle and fascia. POSTOPERATIVE DIAGNOSIS: Chronic wound probes to bone and osteomyelitis to right fifth metatarsal and bilateral lateral ankle wounds down to the level of muscle and fascia. PROCEDURES: 1. Right partial fifth ray resection. 2. Right lateral ankle wound debridement. 3. Left lateral ankle wound debridement. ANESTHESIA: General with local blocks. HEMOSTASIS: None. ESTIMATED BLOOD LOSS: 20 mL. COMPLICATIONS: None. FINDINGS: Right lateral ankle wound measures approximately 3 cm x 3 cm x 0.5 cm, down to the level of fascia, does not probe to bone. Left lateral ankle wound approximately 3 cm x 3 cm, same description as the other one and wound sub fifth met head that does probe to bone and soft bone to the fifth metatarsal head. SPECIMENS: Bone and soft tissue from right foot and culture taken. CLINICAL INDICATIONS: The patient presented to the hospital with a draining foul smelling right foot wound and bilateral lateral ankle wounds. MRI was positive for osteomyelitis to the fifth metatarsal. The wound did probe to bone. The patient states the wound had been there for some time. He has a history of previous amputations to other toes on the right foot. Discussed IV antibiotics and conservative treatment versus surgical intervention. Discussed that MRIs are not 100% definitive on the diagnosis. Discussed possible bone biopsy and then further intervention. The patient opted for amputation at this point in time due to the length and severity of the wound. DESCRIPTION OF PROCEDURE: The patient was seen in the holding room. The planned procedures were explained to the patient in detail. The patient consented to the planned procedures and the correct limb was signed. The patient was taken to the operating room and placed on the operating table in the supine position. Anesthesia was administered and the bilateral lower extremities were prepped and draped in the normal sterile fashion. Attention was first directed to the right lateral foot where there was a wound sub fifth met head that does probe to bone with foul smelling odor and purulent drainage and erythema to the area. A transverse fish mouth incision was made over top of the fifth metatarsal neck excising the wound with the excision. The incision was taken down to the level of bone. The toe and the soft tissue was disarticulated at the fifth MPJ and removed in its entirety. A sagittal saw was then utilized to make an osteotomy through the shaft of the fifth metatarsal to make sure the bevel was cut plantarly and laterally. The site was then copiously irrigated with pulse lavage containing vancomycin, Betadine, hydrogen peroxide, and IrriSept. It was noted that the fifth metatarsal head was soft and that the forceps pushed right into the metatarsal head, which shows a good indication of how infected the bone is. The resection site was noted to be healthy-looking bone without any signs of infection. All nonviable soft tissue was excised and the deep tissues were closed with 3-0 Vicryl and the skin was closed with 3-0 nylon. Attention was then directed to the right lateral ankle wound that does approximately 3 cm x 3 cm with surrounding erythema, purulent drainage, and eschar noted to the wound bed. The wound was not probed to bone. Sharp excisional debridement was performed of all nonviable soft tissue down to the level of healthy bleeding tissue. Attention was then directed to the left lateral ankle where there was another wound measuring approximately 3 cm x 3 cm with dry eschar, purulent drainage, and surrounding erythema. The wound was not probed to bone. The site was then sharply debrided with a 15 blade down to healthy bleeding tissue excising all nonviable tissue. Those 2 sites were then copiously irrigated with pulse lavage, Betadine, and hydrogen peroxide. A Betadine wet-to-dry dressing was applied to all the wounds. The patient tolerated anesthesia and the procedure well and was transferred from the operating room in the recovery room in stable condition. Skyler Cagle DPM TID: [id number] RECEIPT: [id number] EVA/MERCEDEZ
== END 2025-01-14 15:20 | disposition home or self-care (01) | DRG 305 ==
LOC: ER 07:56 → ED HOLD 14:51 → ORTHO 4S 20:20
PROVIDERS: ADMIT Family Medicine; ATTEND Family Medicine
PROC: 0JBR0ZZ Excision of Left Foot Subcutaneous Tissue and Fascia, Open Approach (ICD-10-PCS; 2025-01-13)
PROC: 0Y6M0ZF Detachment at Right Foot, Partial 5th Ray, Open Approach (ICD-10-PCS; principal; 2025-01-13 17:22)
DX: E11.69 Type 2 diabetes mellitus with other specified complication (principal); Z66 Do not resuscitate; I16.0 Hypertensive urgency; D50.8 Other iron deficiency anemias; L97.418 Non-pressure chronic ulcer of right heel and midfoot with other specified severity; E11.65 Type 2 diabetes mellitus with hyperglycemia; M86.171 Other acute osteomyelitis, right ankle and foot; Z20.822 Contact with and (suspected) exposure to COVID-19; F31.9 Bipolar disorder, unspecified; E11.621 Type 2 diabetes mellitus with foot ulcer; I10 Essential (primary) hypertension; M06.9 Rheumatoid arthritis, unspecified; Z87.891 Personal history of nicotine dependence; Q79.60 Ehlers-Danlos syndrome, unspecified; Z88.0 Allergy status to penicillin; Z88.5 Allergy status to narcotic agent; Z90.49 Acquired absence of other specified parts of digestive tract; Q79.69 Other Ehlers-Danlos syndromes
CPT/HCPCS: 36415; 71045; 73610; 73718; 80048; 80053; 80076; 80202; 82728; 82948; 83036; 83540; 83550; 83605; 83735; 83880; 84145; 84484; 85025; 85651; 86140; 86704; 86705; 87040; 87070; 87075; 87077; 87081; 87186; 87340; 87811; 93005; 93306; 93925; 93971; 96365; 96367; 96375; 97116; 97161; 97530; 99291; A4215; A4615; A4618; A4649; A6222; A6253; A6258; A6446; A6449; A7000; G0378; J0360; J0696; J1171; J1200; J1644; J1650; J1750; J1815; J1938; J2003; J2250; J2270; J2405; J2704; J3010; J3373; J3490; J7030; J7050; J7120; Q0163

== ENCOUNTER 2025-02-16 08:10 | Inpatient (IN) | payer MEDICAID ==
[~2025-02-16] VITALS: Ht 172.7 cm; Wt 106.8 kg
[~2025-02-16 08:10] MED LIST changes: +AMOX-580 PO; -ATOR20TA66 PO; +ATOR40TA PO; -BUPR-94 PO; +BUPR150T8 PO; -CLON0.2T PO; +DIVA-159 PO; -DIVA-74 PO; -DIVA125C10 PO; +DIVA125T2 PO; +FER325T PO; +LANTUS SQ; -LANTUS SUBCUT; -LOSA-415 PO; +LOSA50TA64 PO; +NOR5T PO; -TRAZ-251 PO; +TRAZ150T78 PO
--- NOTE | 2025-02-16 08:31 | Physician Documentation ---
History of Present Illness ~ Chief Complaint: Foot pain Stated Complaint: FOOT INFECTION Time Seen by MD: 08:31 Primary Medical Doctor: [facility] 44 year old female with history of diabetes mellitus hypertension, foot osteomyelitis status post 5th metatarsal amputation presented with right foot swelling pain, following foot trauma. [place] last month in our hospital for osteomyelitis of right foot, wound culture was positive for MRSA and Enterococ cus, after 5th metatarsal amputation patient DC home with two weeks of doxycycline p.o. patient did missed the follow-up visit with Dr. Cagle assembler movement. But she reported she complete the dose of antibiotic. Patient reported two days ago she tripped and injured her feet, since then she experiencing swelling and pain at the site of surgery. He also missed two days of insulin, and reported urinary urgency, frequency. She denied chest pain shortness of breaths fever chills Tetanus witin 5 years: No Medication Reconciliation Allergies: Coded Allergies: fentanyl (Unverified Allergy, Severe, 02/16/25) prazosin (Unverified Allergy, Severe, 02/16/25) Penicillins (Verified Allergy, Unknown, 02/16/25) Patient did not remember any reaction to penicillin and last time she received Rocephin with no reaction Scheduled Amlodipine Besylate (Amlodipine Besylate), 2 TAB PO DAILY Amox Tr/Potassium Clavulanate 875/125 MG (Augmentin 875/125 MG), 1 TAB PO BID@0830,1730 Asenapine Maleate (Saphris), 1 TAB SL TID, (Reported) Atorvastatin Calcium* (Lipitor*), 1 TAB PO DAILY, (Reported) Bupropion HCl (Wellbutrin Sr), 1 TAB PO DAILY, (Reported) Divalproex Sodium (Depakote), 1 TAB PO HS, (Reported) Divalproex Sodium (Depakote), 1 TAB PO BID, (Reported) Ferrous Sulfate (Ferrous Sulfate), 1 TAB PO DAILY Gabapentin (Gabapentin), 1 TAB PO Q8H, (Reported) Insulin Glargine,Hum.rec.anlog* (Lantus*), 14 UNIT SQ HS Losartan Potassium (Losartan Potassium), 2 TAB PO DAILY Omeprazole Magnesium (Prilosec Otc), 1 TAB PO BID, (Reported) Trazodone Hcl (Trazodone Hcl), 1 TAB PO HS, (Reported) Scheduled PRN Hydrocodone Bit/Acetaminophen 5/325 MG ([place] 5/325 MG), 1-2 TAB PO Q6H PRN for pain, (Reported) Hydroxyzine Pamoate (Hydroxyzine Pamoate), 1 CAP PO Q6H PRN for PRN, (Reported) Tizanidine Hcl (Zanaflex), 1 CAP PO Q8H PRN for muscle spasms, (Reported) Past Medical History Past Medical History: Hypertension, Diabetes, Chronic Back Pain, *INFECTIOUS DZ* (Osteomyelitis, MRSA) Past Surgical History: orthopedic surgeries, tubal ligation Patient History: FH: depression FATHER MOTHER (Heroin use disorder) FH: heart disease Paternal Grandfather Alcohol Use: None Drug Use: marijuana Review of Systems ROS Constitutional: No fever, dizziness, weakness. no change in appetite/weight HEENT: No blurring of the vision, No sore throat, epistaxis, tinnitus Cardiovascular: no chest pain/discomfort, palpitations, no syncope. No pedal edema Respiratory: No sob, cough,, hemoptysis Gastrointestinal: no abdominal pain, no nausea, vomiting. Positive for 2-3 times loose stool, no constipation, melena. Genitourinary: Urinary frequency and dysuria Musculoskeletal: As HPI Endocrine: No polydipsia, polyuria. No heat or cold intolerance Neurologic: No headache, vertigo. No weakness, no numbness or tingling of extremities Psychiatric: No hallucinations/delusions, no anhedonia, no suicidal ideation\ Physical Exam Vital Signs: Temperature: 97.5, Source: Oral, Heart Rate: 88, Respiratory Rate: 16, BP: 172/97, Pulse Oximetry: 98, Weight: 106.800 Oxygen Flow Rate: 0 Physical Exam General: Awake and Alert, no acute distress. HEENT: Conjunctiva pink, Sclera clear, Mucus Membranes moist. Neck: Supple without masses and tenderness. Resp: Lungs clear to auscultation bilaterally. Heart: Regular Rate and rhythm, normal S1 and S2 Abdomen: Soft and non tender no organomegaly Extremities: 5th metatarsal amputated, sutures in place, erythema and edema around the suture, tenderness Skin: Warm and Dry. Neurological: Speech is clear, alert, and oriented x 4, no gross neurological deficits Progress Results/Orders Results/Orders Orders - SEBASTIAN SAUCEDO, MAGDALENA Culture Blood (02/16/25 ) Ct Lower Extremity (02/16/25 12:15) Culture Body Fluid Order (02/16/25 ) Chest,Single View (02/16/25 10:54) Cult Urine + [place] Ct (02/16/25 11:50) Completed Orders - SEBASTIAN SAUCEDO RES Cbc/Diff (02/16/25 08:44) CMP (02/16/25 08:44) ESR (02/16/25 08:44) Procalcitonin (02/16/25 08:44) Lacticsepsis (02/16/25 08:44) Normal Saline 1000ml (0.9% Sodium Chlori (02/16/25 08:55) Piperacillin/Tazo 4.5gm/100ml (Zosyn 4.5 (02/16/25 09:07) Vancomycin*Pharmacy To Dose* (Vancomycin (02/16/25 09:10) Ct Lower Extremity (02/16/25 12:15) C-Reactive Protein (02/16/25 09:05) Vancomycin/Ns 1 Gm Add-[place] (Vancomyc (02/16/25 09:40) Hcg, Ur Ql (02/16/25 09:40) Morphine 4mg/Ml Inj. (Morphine Inj.) (02/16/25 09:15) Electrocardiogram (02/16/25 ) Chest,Single View (02/16/25 10:54) Hcg Serum Ql (02/16/25 10:10) Hcg Serum Qt (02/16/25 09:05) Hydralazine Inj. (Apresoline Inj.) (02/16/25 10:20) Amlodipine Tablet (Norvasc Tablet) (02/16/25 10:20) Ua W/Microscopic, Cult If Ind (02/16/25 11:04) Hydrocodone/Apap 5/325mg Tab ([place] 5/32 (02/16/25 11:50) Iohexol 300mg/Ml 100ml Inj. (Omnipaque-3 (02/16/25 11:59) Metoprolol Tartrate Tablet (Lopressor Ta (02/16/25 12:50) Medications Received in ER Medications (Trade) Dose Ordered Sig/Brent Route PRN Reason Start Time Stop Time Status Last Admin Dose Admin (0.9% sodium chloride (NS) 1000ml IV soln) 1,000 ml ONCE ONCE IVB 02/16/25 08:55 02/16/25 09:00 DC 02/16/25 09:55 1,000 ML Piperacillin/ Tazobactam/ Dextrose 100 ml @ 25 mls/hr ONCE STAT IV 02/16/25 09:07 02/16/25 13:06 DC 02/16/25 12:26 25 MLS/HR (morphine inj.) 1 mg ONCE ONCE IV 02/16/25 09:15 02/16/25 09:49 DC 02/16/25 09:59 1 MG Vancomycin HCl 250 ml @ 166 mls/hr ONCE ONCE IV 02/16/25 09:40 02/16/25 11:10 DC 02/16/25 09:55 166 MLS/HR (Apresoline inj.) 10 mg ONCE ONCE IV 02/16/25 10:20 02/16/25 10:21 DC 02/16/25 10:42 10 MG (Norvasc tablet) 5 mg ONCE ONCE PO 02/16/25 10:20 02/16/25 10:21 DC 02/16/25 10:41 5 MG (HumuLIN R 10 units per 0.1 ML syringe) 10 units ONCE ONCE SQ 02/16/25 10:25 02/16/25 10:26 DC 02/16/25 10:47 10 UNITS ([place] 5/325mg tablet) 1 tab ONCE ONCE PO 02/16/25 11:50 02/16/25 11:51 DC 02/16/25 12:05 1 TAB (Lopressor tablet) 50 mg ONCE ONCE PO 02/16/25 12:50 02/16/25 12:57 DC 02/16/25 13:11 50 MG Vital Signs 02/16/25 02/16/25 02/16/25 02/16/25 08:15 09:59 10:06 10:41 Temp 97.5 Pulse 88 88 88 Resp 16 16 16 B/P (MAP) 172/97 197/105 (135) Pulse Ox 98 98 O2 Flow Rate 0 0 02/16/25 02/16/25 02/16/25 02/16/25 10:42 12:05 12:11 12:25 Pulse 88 78 Resp 16 16 16 B/P (MAP) 142/80 (100) Pulse Ox 97 O2 Flow Rate 0 02/16/25 02/16/25 02/16/25 12:25 13:11 14:09 Pulse 98 65 Resp 16 17 B/P (MAP) 178/85 (116) Pulse Ox 93 Laboratory Tests Test 02/16/25 09:05 02/16/25 10:31 02/16/25 11:04 02/16/25 13:15 White Blood Count 7.1 Red Blood Count 5.54 Hemoglobin 13.9 Hematocrit 42.5 Mean Corpuscular Volume 76.8 L Mean Corpuscular Hemoglobin 25.1 L Mean Corpuscular Hemoglobin Concent 32.7 L Red Cell Distribution Width 17.3 H Platelet Count 270 Mean Platelet Volume 8.5 Neutrophils (%) (Auto) 54.3 Lymphocytes (%) (Auto) 37.0 Monocytes (%) (Auto) 4.9 Eosinophils (%) (Auto) 2.9 Basophils (%) (Auto) 0.9 Neutrophils # (Auto) 3.9 Lymphocytes # (Auto) 2.6 Monocytes # (Auto) 0.3 Eosinophils # (Auto) 0.2 Basophils # (Auto) 0.1 CBC Comment Erythrocyte Sedimentation Rate 16 Sodium Level 132 L Potassium Level 5.5 H Chloride Level 94 L Carbon Dioxide Level 31.8 Anion Gap 6 L Blood Urea Nitrogen 20 H Creatinine 0.76 Estimated GFR/1.73 m2 82 BUN/Creatinine Ratio 26.3 H Glucose Level 309 H Lactic Acid Level 1.6 Calcium Level 9.8 Total Bilirubin 0.2 Aspartate Amino Transf (AST/SGOT) 14 Alanine Aminotransferase (ALT/SGPT) 13 Alkaline Phosphatase 133 H C-Reactive Protein 0.41 Total Protein 8.6 H Albumin 3.8 Globulin 4.8 H Albumin/Globulin Ratio 0.8 L Procalcitonin < 0.05 HCG Beta Subunit < 1.0 Chemistry Comments Human Chorionic Gonadotropin, Qual Negative Urine Specimen Description Other Urine Color Yellow Urine Clarity Clear Urine pH 8.0 Urine Specific [place] 1.015 Urine Protein Negative Urine Glucose (UA) >=1000 H Urine Ketones Negative Urine Occult Blood Trace-intact Urine Nitrite Negative Urine Bilirubin Negative Urine Urobilinogen 0.2 Urine Leukocyte Esterase Negative Urine RBC 3-10 Urine WBC 0-4 Urine Squamous Epithelial Cells Few Urine Amorphous Phosphates 3+ Urine Bacteria Few Urine Yeast Few Urine Culture Indicated Indicated Volume Urine Centrifuged 10 ml Urine HCG, Qualitative Negative Urine Comment Glucometer 235 H Microbiology Date/Time Source Procedure Growth Status 02/16/25 11:50 Urine Other Urine Culture - Preliminary Culture received. Resulted 02/16/25 09:27 Blood Iv Start Blood Culture - Preliminary NEGATIVE (LESS THAN 24 HOURS) Resulted EKG/XRAY/CT/US/VASC/MRI Chest X-Ray : Additional Comments EXAM: DI CHEST,SINGLE VIEW Indication: sob Technique: Single frontal view of the chest was obtained Comparison: DI CHEST,SINGLE VIEW on DOS: 01/10/25 FINDINGS: Lines and Tubes: None Lungs: No focal consolidation. Pleura: No effusion. No pneumothorax. Cardiomediastinal contours: Unremarkable Bones: No acute osseous abnormality. IMPRESSION: No acute cardiopulmonary disease. Medical Decision Making Additional Comment 44 years old female with history of diabetes, anxiety, seizure, MRSA, osteomyelitis status post Right partial fifth ray resection. presented to the ED for foot pain swelling following foot trauma. Differential diagnosis could be cellulitis, osteomyelitis. Antibiotic Zosyn and vancomycin started based on history of MRSA last visit. Need admission for further evaluation, talked to Dr. Morrison so team resident, agree for admission Departure Admitted to Inpatient Unit: to hospitalist Admission Level of Care: Neuro with Tele Impression: Primary Impression: Cellulitis Additional Impression: Foot pain Condition: Guarded Referrals: NO PRIMARY CARE PROVIDER (PCP) Signature Scribe Signature: Sebastian Saucedo MD Internal Medicine Resident Attestation: The resident attestation: I examined the patient and discussed the plan with attending physician SEBASTIAN Salcido, RES Feb 16, 2025 08:31
[2025-02-16 09:42] LABS: MEAN PLATELET VOLUME 8.5 FL (7.4-10.4); RED CELL DISTRIBUTION WIDTH 17.3 % (11.5-14.5)
[2025-02-16 09:43] LABS: CREATININE 0.76 MG/DL (0.40-0.90); TOTAL CARBON DIOXIDE 31.8 MMOL/L (24-32); eCRCL 93 ML/MIN; eGFR 82 ML/MIN
[2025-02-16] MEDS: vancomycin/NS 1 GM ADD-VANTAGE 250 ML X 1 DOSE IV ONE (09:55)
[2025-02-16] MEDS: normal saline 1000ML IV soln IVB ONE (09:55)
[2025-02-16] MEDS: morphine 4 MG/ML inj SYRINge IV ONE (09:59)
[2025-02-16] MEDS: hydrALAZINE 20mg/ml inj. IV ONE (10:42)
--- NOTE | 2025-02-16 10:44 | ELECTROCARDIOGRAPH REPORT ---
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 Roscoe Sarkar Measurements Intervals [place] Rate: 66 P: 55 ND: 164 QRS: -14 QRSD: 99 T: 7 QT: 423 QTc: 444 Interpretive Statements Sinus rhythm Electronically Signed On 02-24-2025 21:51:[address] Roscoe Sarkar Please click the below link to view image of tracing.
[2025-02-16] MEDS: insulin regular, human 10 units/0.1 ml syringe SQ ONE (10:47)
[2025-02-16 11:20] LABS: URINE HCG NEGATIVE (NEG)
[2025-02-16 11:22] LABS: LEUKOCYTE ESTERASE ,URINE NEGATIVE (Neg); NITRITES, URINE NEGATIVE (Neg); OCCULT BLOOD,URINE TRACE-INTACT (Neg)
--- NOTE | 2025-02-16 11:23 | RADIOLOGY REPORT ---
EXAM: DI CHEST,SINGLE VIEW Indication: sob Technique: Single frontal view of the chest was obtained Comparison: DI CHEST,SINGLE VIEW on DOS: 01/10/25 FINDINGS: Lines and Tubes: None Lungs: No focal consolidation. Pleura: No effusion. No pneumothorax. Cardiomediastinal contours: Unremarkable Bones: No acute osseous abnormality. IMPRESSION: No acute cardiopulmonary disease.
[2025-02-16 11:41] LABS: HCG SERUM QL NEGATIVE
[2025-02-16 11:42] LABS: UA COLLECTION TYPE OTHER
[2025-02-16 11:44] LABS: SQUAMOUS EPITHELIAL CELL,UR FEW /LPF (FEW)
[2025-02-16 11:47] LABS: AMORPHOUS PHOSPHATES 3+
[2025-02-16 11:49] LABS: YEAST FEW /HPF (NEGATIVE)
[2025-02-16] MEDS ORDERED: iohexol 300mg/ml 100ml inj. ONE (11:59)
[2025-02-16] MEDS: HYDROcodone/acetaminophen 5mg/325mg tablet PO ONE (12:05)
[2025-02-16] MEDS: piperacillin/tazo 4.5gm/100ml 100 ML IV STA (12:26)
--- NOTE | 2025-02-16 14:43 | RADIOLOGY REPORT ---
EXAM: CT CT LOWER EXTREMITY W/ IV CONTRAST INDICATION: Colitis, possible osteomyelitis, possible abscess-CT RIGHT FOOT TECHNIQUE: Axial images of right lower extremity have been obtained along with coronal and sagittal reformatted images. All CT scans at this facility use dose modulation, iterative reconstruction, and/or weight based dosing when appropriate to reduce radiation dose to as low as reasonably achievable. COMPARISON: DI ANKLE, COMPLETE(3VW MIN) on DOS: 01/11/25 FINDINGS: BONES: Significant osteomyelitis with surrounding periosteal reaction of the 5th metatarsal stump. Surrounding phlegmon. Overlying surgical albaro. Presumed plantar soft tissue ulceration/ pressure related change along the plantar aspect of the residual 2nd metatarsal head posterior calcaneal tuberosity spurring. In regards to the clinical question, no measurable definitive CT apparent abscess on the provided examination. Extensive surrounding subcutaneous adipose tissue edema MUSCLES: No abnormal attenuation. JOINT SPACES: No joint effusion. TENDONS/LIGAMENTS: Intact. OTHER: None. IMPRESSION: 1. Presumed osteomyelitis of the residual 5th metatarsal diaphysis
[2025-02-16] MEDS ORDERED: potassium Cl 20 mEq SR tablet PO PRN ×2 (15:00)
[2025-02-16] MEDS ORDERED: magnesium Cl slow-release 64mg tablet PO PRN (15:00)
[2025-02-16] MEDS ORDERED: ondansetron/PF 4mg/2ml inj IV PRN (15:00)
[2025-02-16] MEDS ORDERED: mag hydrox/Alum hydrox/simeth 30ml oral suspension PO PRN (15:00)
[2025-02-16] MEDS ORDERED: magnesium sulf-water 2g/50mL 50 ML IV PRN (15:00)
[2025-02-16] MEDS ORDERED: magnesium sulf-water 4G/100mL 100 ML IV PRN (15:00)
[2025-02-16] MEDS ORDERED: potassium Cl 40MEQ/1/2NS 520ml 520 ML IV PRN (15:00)
[2025-02-16] MEDS: normal saline 1000ml 1,000 ML IV SCH (15:36)
--- NOTE | 2025-02-16 15:40 | HISTORY AND PHYSICAL-Residence ---
History & Physical Providers to CC Resident Creating Document: VIRIDIANACOLETTE FLOWER RES ~ History of Present Illness Primary Medical Doctor: [facility] Reason for Admit\Complaint: Right foot pain History of Present Illness Patient is a 44-year-old female with PMH of Diabetes Mellitus, Hypertension, Sheree-Danlos Syndrome, Bipolar disorder, seizure disorder and right foot osteomyelitis s/p surgery 3 weeks ago, presented to ED complaining of Right foot pain since 3 days. Patient stated that she injured her right foot after a fall. She rates the pain 7 out of 10 which is aggravated by moving and relived with rest. Patient reported that she had osteomyleitis and underwent surgical amputation of right right 5th toe 3 weeks ago due to osteomyelitis and she did not follow up with Dr. Dumont formula maker. Would culture at the previous admission grew MRSA and Enterococcus which patient completed two weeks of oral doxycicline ouptatient. Patient also reported diarrhea for the past 4 days, general body ache for the past 2 days, nasuea and chills since this morning. She denies any fever, headache, chest pain, SOB and abdominal pain. Allergies: Coded Allergies: fentanyl (Unverified Allergy, Severe, 02/16/25) prazosin (Unverified Allergy, Severe, 02/16/25) Penicillins (Verified Allergy, Unknown, 02/16/25) Patient did not remember any reaction to penicillin and last time she received Rocephin with no reaction Home Medications Home Medications Active Augmentin 875/125 MG (Amoxicillin/Clavulanate Potassium) 875 Mg-125 Mg Tablet 1 Tab PO BID@0830,1730 14 Days Amlodipine Besylate 5 Mg Tablet 2 Tab PO DAILY 30 Days Ferrous Sulfate 325 Mg (65 Mg Iron) Tablet 1 Tab PO DAILY 90 Days Take 1 tablet by mouth on an empty stomach once daily Lantus* (Insulin Glargine) 100 Unit/1 Ml Vial 14 Unit SQ HS 90 Days Losartan Potassium 50 Mg Tablet 2 Tab PO DAILY 30 Days Reported Trazodone Hcl 150 Mg Tablet 1 Tab PO HS 30 Days Hydroxyzine Pamoate 50 Mg Capsule 1 Cap PO Q6H PRN 30 Days Gabapentin 600 Mg Tablet 1 Tab PO Q8H 30 Days Depakote (Divalproex Sodium) 250 Mg Tablet. 1 Tab PO BID 30 Days Depakote (Divalproex Sodium) 125 Mg Tablet.dr 1 Tab PO HS 30 Days Wellbutrin Sr (Bupropion HCl) 150 Mg Tablet.er 1 Tab PO DAILY 30 Days Lipitor* (Atorvastatin Calcium) 40 Mg Tablet 1 Tab PO DAILY 30 Days [place] 5/325 MG (Acetaminophen/Hydrocodone Bitart) 5 Mg/325 Mg Tablet 1-2 Tab PO Q6H PRN Prilosec Otc (Omeprazole Magnesium) 20 Mg Tablet.dr 1 Tab PO BID Zanaflex (Tizanidine HCl) 4 Mg Capsule 1 Cap PO Q8H PRN Saphris (Asenapine Maleate) 5 Mg Tab.subl 1 Tab SL TID Past Medical History Past Medical History Sheree-Danlos Syndrome Diabetes Mellitus diagnosed in 2003 Hypertension Bipolar disorder Seizure disorder 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 Patient reported multiple joint dislocations and easy bruising in the past due to Sheree-Danlos Syndrome. Past Surgical History Surgical History Comment Rigt foot surgery (5th metatarsal amputation) Patient had two spinal surgeries in August and December 2024. Family History Family History: FH: depression FATHER MOTHER (Heroin use disorder) FH: heart disease Paternal Grandfather Past Social History Social History Comment Patient smokes Cig 1 PPD since 10 years old Use marijuana daily since 7 years old. The patient reside in [place]. Smoking: Cigarettes Alcohol Use: None Drug Use: Marijuana Lives with: Spouse Occupation: unemployed ROS Constitutional General body pain and chills Eyes Negative ENT Negative Respiratory Negative Cardiovascular Negative Gastrointestinal Nasusea and Diarrhea Genitourinary Negative Genitalia Negative Neurological Negative Musculoskeletal Right foot pain Integumentary Negative Allergic/Immunologic Negative Hematologic/Lymphatic Negative Endocrine Negative Psychiatric Negative Exam Vitals: Vital Signs Date Time Temp Pulse Resp B/P (MAP) Pulse Ox O2 Delivery O2 Flow Rate FiO2 02/16/25 14:09 65 17 178/85 (116) 93 02/16/25 12:11 0 02/16/25 08:15 97.5 General: Awake and Alert, no acute distress. HEENT: Conjunctiva pink, Sclera clear, Mucus Membranes moist. Neck: Supple without masses and tenderness. Resp: Unlabored. Lungs clear to auscultation bilaterally. Heart: Regular Rate and rhythm, normal S1 and S2 without murmur, rub or gallop. Abdomen: Soft and non tender no organomegaly Extremities: Okay draining wound in the lateral right foot. With a retained stitches with yellowish discharge Skin: Warm and Dry. Diagnostic Data Last Recorded Lab Results: 02/16/2590402/16/25904 Advance Care Planning Advanced Care plannin - 30 Minutes Additional Plan Assessment: Patient is a 44-year-old female with PMH of diabetes mellitus, hypertension and osteomyelitis s/p surgical amputation of 5th right toe presented to ED complaining of right pain after a fall. Right foot pain / Osteomyelitis of residual 5th metatarsal diaphysis Pulse rate 72 and RR 16 Multiples surgical stiches on the lateral aspect of right foot, fluid and pus oozing CBC and CMP are at normal levels CRP normal Urinalysis normal Blood culture no growth 02/16/25 Stat ESR, please follow Lactic acid and Pro-calcitonin at normal levels CT right foot shows presumed osteomyelitis of the residual 5th metatarsal diaphysis Plans: MRI right foot Morphine PRN Norcon PRN Normal saline IV Vancomycine IV Zosyn IV Wound culture Dr. Cagle consulted Hypertension BP 176/87 Plans: Home medications amlodipine 5 mg daily and losartan 50 mg daily Amlodipine 10 mg PO once daily and losartan 50 mg p.o. daily initiated Hydralazine 10 mg every 6 hours as needed if SBP more than 160 Diabetes Mellitus type 2 Random glucose 309 mg/dl Plans: Hyperglycemia/hypoglycemia protocol in place including; Lantus 15 mg HS Follow hemoglobin A1c Carb controlled diet Seizure Disorders Patient has seizures since 2013 but she has been seizure free since 3 months Home Depakote 125 mg p.o. resumed Fall precautions Anxiety/depression Home medications including bupropion 150 mg and hydroxyzine 50 mg resumed Peripheral neuropathies, likely diabetic Continue gabapentin 600 mg every 8 hours Hyperlipidemia Home medications atorvastatin 40 mg p.o. resumed Sheree-Danlos Syndrome Patient reported multiple joint dislocations in the past Patient also reported easy bruising Code status: Full code DVT prophylaxis: Heparin subQ Date of Service: Feb 16, 2025 Billing Provider: MILES ESCOBEDO MD Common Visit Codes: [id number] INP/OBS CARE (HIGH) Secondary Visit Codes: [id number] CARE PLAN 30 MINUTES COLETTE SANCHEZ, RES Feb 16, 2025 15:40 GASTON SCHMIDT, RES Feb 16, 2025 18:55 MILES ESCOBEDO MD Feb 17, 2025 21:45
[2025-02-16] MEDS ORDERED: morphine 4 MG/ML inj SYRINge IV PRN (15:47)
[2025-02-16] MEDS: HYDROcodone/acetaminophen 10/325mg tab PO PRN (15:59)
[2025-02-16] MEDS: vancomycin/NS 1 GM ADD-VANTAGE 250 ML IV SCH (18:02)
[2025-02-16 18:55] VITALS: BP 183/78; PULSE 59; RESP 16; TEMP 97.9; O2SAT 97
[2025-02-16] MEDS ORDERED: glucagon, human recombinant 1mg kit SUBCUT PRN (19:00)
[2025-02-16] MEDS ORDERED: dextrose 50%-water 50ml dispensing syringe IV PRN ×2 (19:00)
[2025-02-16] MEDS ORDERED: DEXTROSE 15 GM of carb/4 tabs (each vial/BOTTLE has 4 tablets) PO PRN ×2 (19:00)
[2025-02-16] MEDS: K and/or MAG REPLACEMENT MC SCH (19:06)
[2025-02-16] MEDS: morphine 4 MG/ML inj SYRINge IV PRN (19:20)
[2025-02-16] MEDS: piperacillin/tazo 3.375gm/50ml 50 ML IV SCH (21:00)
[2025-02-16] MEDS: docusate sod 100mg capsule PO SCH (21:08)
[2025-02-16] MEDS: pantoprazole 40mg Tablet.DR PO SCH (21:09)
[2025-02-16] MEDS: asenapine 5mg TAB.SUBL SL SCH (21:09)
[2025-02-16] MEDS: heparin, porcine 5000 units/ml vial SQ SCH (21:10)
[2025-02-16] MEDS: divalproex 250mg tablet, delayed-release PO SCH (21:10)
[2025-02-16] MEDS: insulin glargine (Lantus) pen - multi-dose SQ SCH (21:16)
[2025-02-16] MEDS: INSULIN LISPRO 100 UNIT/ML INSULN.PEN MULTI-DOSE SQ SCH (21:16)
[2025-02-16 22:00] VITALS: BP 119/76; PULSE 58; RESP 15; TEMP 97.6; O2SAT 92
[2025-02-16] MEDS: buPROPion SR 150mg tablet PO SCH (22:59)
[2025-02-17 06:00] VITALS: BP_SYST 110; BP_SYST 158; BP_DIAS 66; BP_DIAS 68; PULSE 59; PULSE 63; RESP 14; RESP 15; TEMP 97.2; O2SAT 96; O2SAT 97
[2025-02-17 08:00] VITALS: RESP 16; O2SAT 96
[2025-02-17] MEDS: HYDROcodone/acetaminophen 5mg/325mg tablet PO PRN (08:02)
[2025-02-17] MEDS: VANCOMYCIN LEVEL IV ONE (08:30)
[2025-02-17 08:56] LABS: MEAN PLATELET VOLUME 8.4 FL (7.4-10.4); RED CELL DISTRIBUTION WIDTH 18.2 % (11.5-14.5)
[2025-02-17 09:07] LABS: CHOL/HDL RATIO 6.9 (0.00-4.99); CREATININE 0.70 MG/DL (0.40-0.90); LDL CHOLESTEROL 176 MG/DL (50-100); TOTAL CARBON DIOXIDE 31.6 MMOL/L (24-32); eCRCL 101 ML/MIN; eGFR 90 ML/MIN
[2025-02-17 10:00] VITALS: BP 147/73; PULSE 58; RESP 15; TEMP 97.8; O2SAT 96
[2025-02-17 10:13] LABS: MEAN PLATELET VOLUME 8.1 FL (7.4-10.4); RED CELL DISTRIBUTION WIDTH 18.3 % (11.5-14.5)
[2025-02-17] MEDS: VANCOmycin 1250MG/NS 250ml Bag 250 ML IV SCH (10:18)
[2025-02-17 10:20] LABS: CREATININE 0.67 MG/DL (0.40-0.90); TOTAL CARBON DIOXIDE 28.8 MMOL/L (24-32); eCRCL 106 ML/MIN; eGFR > 90 ML/MIN
--- NOTE | 2025-02-17 10:56 | PROGRESS NOTE- Residence ---
Progress Note - Resident Providers to CC Resident Creating Document: COLETTE SANCHEZ, RES ~ Central Line/PICC still needed: N\A Antibiotic Timeout Antibiotic Ordered?: Yes If Yes, Indications: Osteomyelitis of the right foot MRSA Education MRSA Education Provided to pt: Yes Subjective Patient was seen at bedside today and she reports the right foot pain is improved. She denies any fever, chills, nausea, vomiting, abdominal pain, chest pain and SOB. Objective Vital Signs Date Time Temp Pulse Resp B/P (MAP) Pulse Ox O2 Delivery O2 Flow Rate FiO2 02/17/25 10:19 16 02/17/25 08:03 59 02/17/25 08:00 96 Room Air 0.0 02/17/25 06:00 97.2 158/66 (96) Result Diagram: 02/17/25 0942 02/17/25 0942 General: Awake and Alert, no acute distress. HEENT: Conjunctiva pink, Sclera clear, Mucus Membranes moist. Neck: Supple without masses and tenderness. Resp: Unlabored. Lungs clear to auscultation bilaterally. Heart: Regular Rate and rhythm, normal S1 and S2 without murmur, rub or gallop. Abdomen: Soft and non tender no organomegaly Extremities: draining wound in the lateral right foot. With a retained stitches with yellowish discharge Skin: Warm and Dry. Advance Care Planning Advanced Care plannin - 30 Minutes Assessment Assessment This is a 44-year-old female with PMH of DMII, HTN and osteomyelitis of right 5th toe s/p surgical amputation of the 5th metatarsus 3 weeks ago, presented to ED complaining of right foot pain at surgical site for the past two days after a fall. Plan Plan Right foot pain / Osteomyelitis of residual 5th metatarsal diaphysis Vitals within normal limits except BP 158/66 Multiples surgical stiches on the lateral aspect of right foot, fluid and pus oozing CBC and CMP are at normal levels CRP normal Urinalysis normal Blood culture no growth 02/16/25 ESR 14 Lactic acid and Pro-calcitonin at normal levels CT right foot shows presumed osteomyelitis of the residual 5th metatarsal diaphysis Plans: MRI right foot Morphine PRN Norcon PRN Normal saline IV Continue Vancomycine IV Continue Zosyn IV Follow wound culture Dr. Worthy consulted , to be taken for surgery tomorrow. Hypertension 02/16 BP 176/87 02/17 156/68 Plans: Home medications amlodipine 5 mg daily and losartan 50 mg daily Amlodipine 10 mg PO once daily and losartan 50 mg p.o. daily initiated Hydralazine 10 mg every 6 hours as needed if SBP more than 160 Diabetes Mellitus type 2 02/16 Random glucose 309 mg/dl 02/17 glucose 291 mg/dl Plans: Hyperglycemia/hypoglycemia protocol in place including; Lantus 15 mg HS Follow hemoglobin A1c Carb controlled diet Seizure Disorders Patient has seizures since 2013 but she has been seizure free since 3 months Continue home Depakote 125 mg p.o. Fall precautions Anxiety/depression Continue bupropion 150 mg and hydroxyzine 50 mg Peripheral neuropathies, likely diabetic Continue gabapentin 600 mg every 8 hours Hyperlipidemia Continue home medications atorvastatin 40 mg p.o. resumed Sheree-Danlos Syndrome Patient reported multiple joint dislocations in the past Patient also reported easy bruising Code status: Full code DVT prophylaxis: Heparin subQ Diet-NPO after midnight GI prophylaxis-Protonix Colette Hussaindivari PGY-1 Problem list Problem List: (1) Osteomyelitis of toe (2) Bipolar disorder current episode depressed (3) Depression, unspecified (4) Non-healing surgical wound (5) Leg swelling (6) Accelerated hypertension (7) Foot pain Date of Service: Feb 17, 2025 Billing Provider: MILES ESCOBEDO MD Common Visit Codes: [id number] INP/OBS CARE(HIGH) GASTON SCHMIDT, RES Feb 17, 2025 10:56 COLETTE SANCHEZ, RES Feb 17, 2025 20:41 MILES ESCOBEDO MD Feb 17, 2025 21:48
--- NOTE | 2025-02-17 17:12 | CARDIOLOGY REPORT ---
APPROVED REPORT EXAM: Limited 2D, Doppler, and color-flow Echocardiogram. 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 137.4 cm/s AO Peak GR. 7.6 mmHg Tricuspid Valve TR P. Velocity 221 cm/s RAP ESTIMATE 10 mmHg TR Peak Gr. 20 mmHg RVSP 30 mmHg LEFT VENTRICLE Normal LV size and wall thickness. Overall systolic function is normal. Overall LVEF is 60-65%. RIGHT VENTRICLE Right ventricle appears mildly dilated with adequate function. ATRIA Left atrium appears moderately dilated. Right atrium appears mildly dilated. AORTIC VALVE Trileaflet AV appears mildly sclerotic without stenosis. No insufficiency. AV not fully evaluated due to limited exam. MITRAL VALVE The mitral valve is normal in structure with trace regurgitation. MV not fully evaluated due to limited exam. TRICUSPID VALVE The tricuspid valve is normal in structure with trace regurgitation. PULMONIC VALVE Pulmonic valve is grossly normal in structure. GREAT VESSELS The aortic root is normal in size. The IVC is normal in size and collapses >50% with inspiration. PERICARDIUM Normal pericardium. No effusion. Other Information Study Quality: Adequate Conclusion Overall LVEF is 60-65%. Normal LV size and wall thickness. Overall systolic function is normal. Right ventricle appears mildly dilated with adequate function. Trileaflet AV appears mildly sclerotic without stenosis. No insufficiency. AV not fully evaluated due to limited exam. The mitral valve is normal in structure with trace regurgitation. MV not fully evaluated due to limited exam. The tricuspid valve is normal in structure with trace regurgitation. Normal pericardium. No effusion.
--- NOTE | 2025-02-17 17:43 | CONSULTATION REPORT ---
Consult Providers to CC ~ History of Present Illness Reason for Admit\Complaint: right foot infection History of Present Illness Patient presented to the hospital with worsening right foot infection She has this foot operated on from the looks of it, a partial 5th ray with I&D She was lost at follow up and admits not following up appropriately with her surgeon which I think has led to worsening infection She is currently denying N/V/F Allergies: Coded Allergies: fentanyl (Unverified Allergy, Severe, 02/16/25) prazosin (Unverified Allergy, Severe, 02/16/25) Penicillins (Verified Allergy, Unknown, 02/16/25) Patient did not remember any reaction to penicillin and last time she received Rocephin with no reaction Home Medications Home Medications Active Amlodipine Besylate 5 Mg Tablet 2 Tab PO DAILY 30 Days Ferrous Sulfate 325 Mg (65 Mg Iron) Tablet 1 Tab PO DAILY 90 Days Take 1 tablet by mouth on an empty stomach once daily Lantus* (Insulin Glargine) 100 Unit/1 Ml Vial 14 Unit SQ HS 90 Days Losartan Potassium 50 Mg Tablet 2 Tab PO DAILY 30 Days Reported Trazodone Hcl 150 Mg Tablet 1 Tab PO HS 30 Days Hydroxyzine Pamoate 50 Mg Capsule 1 Cap PO Q6H PRN 30 Days Gabapentin 600 Mg Tablet 1 Tab PO Q8H 30 Days Depakote (Divalproex Sodium) 250 Mg Tablet.dr 1 Tab PO BID 30 Days Depakote (Divalproex Sodium) 125 Mg Tablet.dr 1 Tab PO HS 30 Days Wellbutrin Sr (Bupropion HCl) 150 Mg Tablet.er 1 Tab PO DAILY 30 Days Lipitor* (Atorvastatin Calcium) 40 Mg Tablet 1 Tab PO DAILY 30 Days [place] 5/325 MG (Acetaminophen/Hydrocodone Bitart) 5 Mg/325 Mg Tablet 1-2 Tab PO Q6H PRN Prilosec Otc (Omeprazole Magnesium) 20 Mg Tablet.dr 1 Tab PO BID Zanaflex (Tizanidine HCl) 4 Mg Capsule 1 Cap PO Q8H PRN Saphris (Asenapine Maleate) 5 Mg Tab.subl 1 Tab SL TID Past Medical History Past Medical History Tobacco abuse, DM Past Surgical History Surgical History Comment s/p right foot I&D 2-3 weeks Family History Family History: FH: depression FATHER MOTHER (Heroin use disorder) FH: heart disease Paternal Grandfather ROS ROS per H&P Exam Vitals: Vital Signs Date Time Temp Pulse Resp B/P (MAP) Pulse Ox O2 Delivery O2 Flow Rate FiO2 02/17/25 17:04 18 02/17/25 10:00 97.8 58 147/73 (97) 96 Room Air 02/17/25 08:00 0.0 General: alert and oriented Cardiovascular: clear Abdomen: soft Central Nervous System: Decreased sensation to the ankle joint Musculoskeletal: right foot infection with erythema and edema, there is underlying fluctuance there is retained suture and albaro there is macerated skin fullness noted to the lateral foot Multiple other non traumatic amputation sites Diagnostic Data Last Recorded Lab Results: 02/17/25 0942 02/17/25 0942 Additional Plan Patient was seen at bedside there is an active infection of the right foot we discussed source control which would include right foot incision and drainage, bone biopsy we discussed the risks and benefits of the procedure she says she wants to drive to [place] but her car is broken down recommend that she stay in the hospital until she is more stable all of her questions were answered today orders placed for sx tomorrow NPO at midnight CARLINE CAMPOS DPM Feb 17, 2025 17:43
[2025-02-17 18:00] VITALS: BP 111/58; PULSE 71; RESP 16; TEMP 98.1; O2SAT 100
[2025-02-17 22:00] VITALS: BP 175/81; PULSE 68; RESP 15; TEMP 97.9; O2SAT 96
[2025-02-18] VITALS (24 sets, daily range): BP systolic 149–215; BP diastolic 61–104; PULSE 58–98; RESP 10–18; TEMP 97.6–98.3; O2SAT 96–100
[2025-02-18 05:29] LABS: MEAN PLATELET VOLUME 7.9 FL (7.4-10.4); RED CELL DISTRIBUTION WIDTH 18.1 % (11.5-14.5)
[2025-02-18 06:05] LABS: CREATININE 0.64 MG/DL (0.40-0.90); TOTAL CARBON DIOXIDE 29.3 MMOL/L (24-32); eCRCL 111 ML/MIN; eGFR > 90 ML/MIN
[2025-02-18] MEDS: GADOTERATE MEGLUMINE 7.5 MMOL/15 ML VIAL IV ONE (06:58)
[2025-02-18] MEDS: VANCOMYCIN LEVEL IV ONE (09:30)
[2025-02-18] MEDS: magnesium hydroxide 30ml (MOM) UD suspension PO PRN (09:43)
--- NOTE | 2025-02-18 10:26 | RADIOLOGY REPORT ---
CLINICAL HISTORY: 44 years old, Female; POSSIBLE OSTEOMYELITIS. TECHNIQUE: Multi sequence multi planar MRI images of the right midfoot and forefoot were obtained without IV contrast. COMPARISON: CT CT LOWER EXTREMITY W/ IV CONTRAST on DOS: 02/16/25, DI ANKLE, COMPLETE(3VW MIN) on DOS: 01/11/25, DI ANKLE, COMPLETE(3VW MIN) on DOS: 01/11/25. MRI dated 01/10/2025. FINDINGS: Postsurgical changes of prior amputations, at the 1st digit interphalangeal joint, 2nd digit MCP joint, distal 3rd metatarsal, and 5th proximal to mid metatarsal. There are cutaneous albaro at the lateral plantar aspect of the midfoot and forefoot near the 5th metatarsal amputation stump. There is prominent subcutaneous edema and enhancement near the 5th metatarsal amputation stump and small fluid collection measuring up to 1.2 cm in greatest dimension abutting the 5th metatarsal amputation stump, demonstrating peripheral enhancement, suspected abscess. There is marrow edema with T2 hyperintense signal and T1 hypointense signal in the 5th metatarsal amputation stump and extending to the proximal shaft of the 5th metatarsal, suspected osteomyelitis. No definite T1 hypointense signal in the base of the 5th metatarsal to suggest osteomyelitis. No other evidence for osteomyelitis in the midfoot or forefoot. IMPRESSION: 1. Soft tissue inflammatory changes in the lateral aspect of the forefoot with fluid collection adjacent to the 5th metatarsal amputation stump consistent with cellulitis and small abscess. 2. Findings consistent with osteomyelitis in the 5th metatarsal amputation stump, extending to the proximal shaft as detailed above. No visualized evidence for osteomyelitis in the 5th metatarsal base.
[2025-02-18] MEDS: vancomycin/NS 1 GM ADD-VANTAGE 250 ML X 1 DOSE IV SCH (11:32)
--- NOTE | 2025-02-18 13:31 | PROGRESS NOTE- Residence ---
Progress Note - Resident Providers to CC Resident Creating Document: COLETTE NAVARRO, RES ~ Central Line/PICC still needed: N\A Antibiotic Timeout Antibiotic Ordered?: Yes MRSA Education MRSA Education Provided to pt: Yes Subjective Patient was seen at bedside today and she reports the right foot pain is improved. She also reports vaginal discharge, itching and urinary incontinence. Objective Vital Signs Date Time Temp Pulse Resp B/P (MAP) Pulse Ox O2 Delivery O2 Flow Rate FiO2 02/18/25 10:43 16 02/18/25 10:00 98.3 77 182/84 (116) 99 Room Air 02/18/25 08:00 0.0 Result Diagram: 02/18/2545802/18/[id number] General: Awake and Alert, no acute distress. HEENT: Conjunctiva pink, Sclera clear, Mucus Membranes moist. Neck: Supple without masses and tenderness. Resp: Unlabored. Lungs clear to auscultation bilaterally. Heart: Regular Rate and rhythm, normal S1 and S2 without murmur, rub or gallop. Abdomen: Soft and non tender no organomegaly Extremities: draining wound in the lateral right foot. With a retained stitches with yellowish discharge Skin: Warm and Dry. Advance Care Planning Advanced Care plannin - 30 Minutes Assessment Assessment This is a 44-year-old female with PMH of DMII, HTN and osteomyelitis of right 5th toe s/p surgical amputation of the 5th metatarsus 3 weeks ago, presented to ED complaining of right foot pain at surgical site for the past two days after a fall. Plan Plan Right foot pain / Osteomyelitis of residual 5th metatarsal diaphysis Vitals within normal limits except BP 158/66 Multiples surgical stiches on the lateral aspect of right foot, fluid and pus oozing CBC and CMP are at normal levels CRP normal Urinalysis normal Blood culture no growth 02/16/25 ESR 14 Lactic acid and Pro-calcitonin at normal levels CT right foot shows presumed osteomyelitis of the residual 5th metatarsal diaphysis Plans: MRI right foot Morphine PRN Norcon PRN Normal saline IV Continue Vancomycine IV Continue Zosyn IV Follow wound culture Dr. Worthy consulted , to be taken for surgery today. New onset vaginal discharge yellowish white in color Patient is complaining of yellowish white color discharge associated with itching and urinary incontinence UA normal on admission 02/16 Topical Clotrimazole Metronidazole PO Hypertension 02/17 BP 156/68 02/18 BP 182/84 Plans: Home medications amlodipine 5 mg daily and losartan 50 mg daily Amlodipine 10 mg PO once daily and losartan 50 mg p.o. daily initiated Hydralazine 10 mg every 6 hours as needed if SBP more than 160 Diabetes Mellitus type 2 02/16 Random glucose 309 mg/dl 02/17 glucose 291 mg/dl 02/18 glucose level improving 204 Plans: Hyperglycemia/hypoglycemia protocol in place including; Lantus 15 mg HS Follow hemoglobin A1c Carb controlled diet Seizure Disorders Patient has seizures since 2013 but she has been seizure free since 3 months Continue home Depakote 125 mg p.o. Fall precautions Anxiety/depression Continue bupropion 150 mg and hydroxyzine 50 mg Peripheral neuropathies, likely diabetic Continue gabapentin 600 mg every 8 hours Hyperlipidemia Continue home medications atorvastatin 40 mg p.o. resumed Sheree-Danlos Syndrome Patient reported multiple joint dislocations in the past Patient also reported easy bruising Code status: Full code DVT prophylaxis: Heparin subQ Diet-NPO GI prophylaxis-Protonix Colette Navarro PGY-1 Problem list Problem List: (1) Foot pain (2) Non-healing surgical wound (3) Leg swelling (4) Osteomyelitis of toe (5) Bipolar disorder current episode depressed (6) Depression, unspecified (7) Accelerated hypertension Date of Service: Feb 18, 2025 Billing Provider: MILES ESCOBEDO MD Common Visit Codes: [id number] INP/OBS CARE(HIGH) COLETTE NAVARRO, RES Feb 18, 2025 13:31 MILES ESCOBEDO MD Feb 19, 2025 09:15
[2025-02-18] MEDS ORDERED: bacitracin 15gm ointment TP ONE (13:42)
[2025-02-18] MEDS ORDERED: BUPIVAcaine 0.5% inj/PF 30 ML ONE (13:42)
[2025-02-18] MEDS: ringers solution, lacted 1,000 ML IV SCH (15:15)
[2025-02-18] MEDS ORDERED: HYDROmorphone/PF 0.2 MG/ML SYRINGE IV PRN (15:15)
[2025-02-18] MEDS ORDERED: labetalol 20mg/4ml (5mg/ml) syringe IV PRN (15:15)
[2025-02-18] MEDS ORDERED: fentaNYL/PF 50MCG/1 ML 2ML syringe IV PRN (15:15)
[2025-02-18] MEDS ORDERED: hydrALAZINE 20mg/ml inj. IV PRN (15:15)
[2025-02-18] MEDS ORDERED: ondansetron/PF 4mg/2ml inj IV PRN ×2 (15:15→15:50)
[2025-02-18] MEDS ORDERED: midazolam 1 mg/ML 2ml injection ONE (15:17)
[2025-02-18] MEDS ORDERED: propofol inj 20 ML IV ONE (15:17)
[2025-02-18] MEDS ORDERED: LIDOcaine 2% (20mg/ml) 5ml vial ONE (15:26)
[2025-02-18] MEDS ORDERED: vancomycin 1,000mg inj ONE (15:30)
[2025-02-18] MEDS ORDERED: bisacodyl 10mg suppository rectal RC PRN (15:50)
[2025-02-18] MEDS ORDERED: PCA WASTE DOCUMENTATION 1 MG ML MC SCH (15:50)
[2025-02-18] MEDS ORDERED: magnesium hydroxide 30ml (MOM) UD suspension PO PRN (15:50)
--- NOTE | 2025-02-18 16:17 | OPERATIVE REPORT ---
DATE OF SURGERY: 02/18/2025 DICTATING PHYSICIAN: NESTOR WORTHY DPM PREOPERATIVE DIAGNOSES: 1. Right foot pain. 2. Right foot infection. POSTOPERATIVE DIAGNOSES: 1. Right foot pain. 2. Right foot infection. PROCEDURES: 1. Right foot incision and drainage with deep bone biopsy. 2. Insertion of antibiotic beads. SURGEON: Nestor Worthy DPM CORPORATE SERVICES MANAGER: Jeovany Mcintosh DPM fellow, assistance was needed to decrease tourniquet time, help with efficiency and retraction throughout the entirety of the procedure. ANESTHESIA: General anesthesia. HEMOSTASIS: None. COMPLICATIONS: None. SPECIMENS: A right foot bone sent for pathological specimen as well as right foot sent for culture. INDICATIONS: The patient presented to the hospital. The patient had previously underwent an I and D a couple of weeks ago and unfortunately was lost at followup. The patient presented back to the hospital with a worsening infection. The patient essentially was dealing with worsening infection based on the CT scan. There was concern about a phlegmon as well as infection within the deep tissue. There were clinical signs of infection, so therefore, I offered an incision and drainage with removal of all nonviable tissue. This is the route that the patient elected to undergo. DESCRIPTION OF PROCEDURE: The patient was brought to the operating room and placed on the operating table in the supine position. The patient was induced under general anesthesia and then the foot and ankle were then prepped and draped in the usual aseptic fashion. Previously applied ankle tourniquet was applied, but never inflated. Right foot incision and drainage with deep bone biopsy and application of antibiotic beads. We then brought our attention to the lateral aspect of the patient's foot. The patient still had retained sutures and albaro, so therefore, we removed this and went through the same incision with a #15 blade and we carefully dissected down to the level of the subcutaneous tissue with care being taken to identify and retract all vital vascular structures. We then carefully dissected down into the level of the deep fascia. There was some purulent drainage and phlegmon material, so therefore, we removed all of this appropriately. We excised all the nonviable tissue as we could. We then dissected and there was actually retained bony fragments within the right foot. We spent a large amount of time removing these bony fragments appropriately, which we did. It was noted that these bony fragments were nonviable and then there was a remaining distal portion of the fifth metatarsal partial fifth ray amputation, which we carefully biopsied and sent for pathological specimen. We also cultured the patient's right foot as well. After this, we then flushed with copious amounts of sterile normal saline. We used pulse lavage with the sterile normal saline until this was all cleaned and then after that, we mixed up a Stimulan with vancomycin and then after these beads hardened, we then implanted it into the patient's foot and then closed over top. A 2-0 nylon was used in a simple interrupted suture technique for skin. The incisions were then dressed with triple antibiotic ointment followed by Adaptic, 4 x 4s and Webril and an Eliseo bandage. The patient was then placed into a boot. The patient was then discharged from the operating room and placed into PACU with vital signs stable and vascular status intact in the operative foot. The patient was then readmitted to the hospital floor for further medical management. The patient will continued be to be followed up on. The patient will be in-house receiving more antibiotic therapy and care. We will need to continue to monitor what specific antibiotics the patient needs and then if there is any further need for additional washouts, we will let the patient know. We also talked about the importance of compliance with followup. She understands this. All of her questions were answered today. NESTOR WORTHY DPM TID: [id number] RECEIPT: [id number] DANIELLE/LANDEN
[2025-02-18] MEDS: HYDROmorphone/PF 0.2 MG/ML SYRINGE IV PRN (16:18)
[2025-02-18] MEDS: fentaNYL/PF 50MCG/1 ML 2ML syringe IV PRN (16:20)
[2025-02-18] MEDS: hydrALAZINE 20mg/ml inj. IV PRN (17:10)
[2025-02-18] MEDS: HYDROcodone/acetaminophen 10/325mg tab PO PRN ×2 (17:43→21:58)
[2025-02-19 01:49] VITALS: BP 128/74; PULSE 70; RESP 16; TEMP 98; O2SAT 94
[2025-02-19 06:00] VITALS: BP 142/69; PULSE 74; RESP 18; TEMP 97.9; O2SAT 94
[2025-02-19 06:29] LABS: MEAN PLATELET VOLUME 8.0 FL (7.4-10.4); RED CELL DISTRIBUTION WIDTH 17.5 % (11.5-14.5)
--- NOTE | 2025-02-19 06:54 | PROGRESS NOTE ---
Ortho Clinic Progress Note History of Present Illness Allergies: Coded Allergies: prazosin (Unverified Allergy, Severe, 02/16/25) Penicillins (Verified Allergy, Unknown, 02/16/25) Patient did not remember any reaction to penicillin and last time she received Rocephin with no reaction fentanyl (Unverified Allergy, Unknown, PANIC ATTACK, 02/18/25) Social History Smoking: Cigarettes Alcohol Use: Sober Drug Use: Marijuana Lives with: Spouse Occupation: unemployed Pain Pain Present: Yes Verbalized Pain Intensity: 0 Location Location Modifier: Right Pain Location: Foot Radiation Location: up leg Primary Aggravating Factor: 9 Subjective Ms. Lewis is now POD1 L foot I&D with delayed primary closure. Had some bleeding last night after she bumped her foot on the bed and while ambulating toward the bathroom. I controlled bleeding with pressure and a compression dressing. Doing otherwise well this am with moderate levels of pain. Denies nausea, vomiting, fever, chills, chest pain, shortness of breath. Objective Vital Signs Date Time Temp Pulse Resp B/P (MAP) Pulse Ox O2 Delivery O2 Flow Rate FiO2 02/19/25 06:00 97.9 74 18 142/69 (93) 94 Room Air 02/18/25 20:00 2.0 Lab Results: 02/18/25 0459 02/18/25 0459 Problem\Assessment\Plan Assessment\Plan: Doing Well, Start Physicial Therapy, Anticipate disch to home (Friday) Plan: No further surgical plans this admission. Dressing clean, dry, and intact this am with no subsequent bleeding. Last night's bleeding likely to additional trauma after surgery creating some venous bleeding which has been controlled. -Intraoperative Cx pending. Pathology specimen of 5th metatarsal also sent. Will continue to follow -Recommend broad spectrum Abx and ID consult. No overt signs of infection following debridement yesterday. -Heel touch WBAT to the RLE in a CAM boot moving forward. I advised her to be careful during ambulation. -Plan discussed with Dr. Worthy. ROBYN ROBISON DPM Feb 19, 2025 06:54
[2025-02-19 06:55] LABS: CREATININE 0.63 MG/DL (0.40-0.90); TOTAL CARBON DIOXIDE 28.5 MMOL/L (24-32); eCRCL 113 ML/MIN; eGFR > 90 ML/MIN
[2025-02-19 10:00] VITALS: BP 179/101; PULSE 92; RESP 14; TEMP 97.9; O2SAT 98
[2025-02-19] MEDS: VANCOMYCIN LEVEL IV ONE (11:30)
--- NOTE | 2025-02-19 14:27 | PROGRESS NOTE- Residence ---
Progress Note - Resident Providers to CC Resident Creating Document: COLETTE NAVARRO, MAGDALENA ~ Antibiotic Timeout Antibiotic Ordered?: Yes Subjective Patient was seen at bedside today and she reports the right foot pain is improved. Patient was taken for surgery yesterday, feels better now, no acute events recorded overnight. Objective Vital Signs Date Time Temp Pulse Resp B/P (MAP) Pulse Ox O2 Delivery O2 Flow Rate FiO2 02/19/25 10:00 97.9 92 14 179/101 (127) 98 Room Air 02/18/25 20:00 2.0 Result Diagram: 02/19/2552402/19/25524 General: Awake and Alert, no acute distress. HEENT: Conjunctiva pink, Sclera clear, Mucus Membranes moist. Neck: Supple without masses and tenderness. Resp: Unlabored. Lungs clear to auscultation bilaterally. Heart: Regular Rate and rhythm, normal S1 and S2 without murmur, rub or gallop. Abdomen: Soft and non tender no organomegaly Extremities: Right leg covered with a surgical plaster. Skin: Warm and Dry. Assessment Assessment This is a 44-year-old female with PMH of DMII, HTN and osteomyelitis of right 5th toe s/p surgical amputation of the 5th metatarsus 3 weeks ago, presented to ED complaining of right foot pain at surgical site for the past two days after a fall. Plan Plan Right foot pain / Osteomyelitis of residual 5th metatarsal diaphysis CBC and CMP are at normal levels CRP normal Urinalysis normal Blood culture no growth 02/16/25 ESR 14 Lactic acid and Pro-calcitonin at normal levels CT right foot shows presumed osteomyelitis of the residual 5th metatarsal diaphysis MRI foot shows- Findings consistent with osteomyelitis in the 5th metatarsal amputation stump, extending to the proximal shaft as detailed above. No visualized evidence for osteomyelitis in the 5th metatarsal base. Plans: Morphine PRN Norcon PRN Normal saline IV Continue Vancomycine IV Continue Zosyn IV Follow wound culture Patient underwent surgery by Dr. Worthy. Procedure performed-Right foot incision and drainage with deep bone biopsy. ID Dr. Dorado was consulted regarding antibiotic coverage. Dr. Dorado will be seeing the patient on Friday. New onset vaginal discharge yellowish white in color Patient is complaining of yellowish white color discharge associated with itching and urinary incontinence UA normal on admission 02/16 Topical Clotrimazole Metronidazole PO Hypertension 02/17 BP 156/68 02/18 BP 182/84 Plans: Home medications amlodipine 5 mg daily and losartan 50 mg daily Amlodipine 10 mg PO once daily and losartan 50 mg p.o. daily initiated Hydralazine 10 mg every 6 hours as needed if SBP more than 160 Diabetes Mellitus type 2 02/16 Random glucose 309 mg/dl 02/17 glucose 291 mg/dl 02/18 glucose level improving 204 02/19 glucose 242 Plans: Hyperglycemia/hypoglycemia protocol in place including; Lantus 15 mg HS Follow hemoglobin A1c Carb controlled diet Seizure Disorders Patient has seizures since 2013 but she has been seizure free since 3 months Continue home Depakote 125 mg p.o. Fall precautions Anxiety/depression Continue bupropion 150 mg and hydroxyzine 50 mg Peripheral neuropathies, likely diabetic Continue gabapentin 600 mg every 8 hours Hyperlipidemia Continue home medications atorvastatin 40 mg p.o. 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
[2025-02-19 18:00] VITALS: BP 151/86; PULSE 85; RESP 12; TEMP 98.3; O2SAT 97
[2025-02-19 22:00] VITALS: BP 180/89; PULSE 84; RESP 18; TEMP 98.3; O2SAT 96
[2025-02-20] MEDS: piperacillin/tazo 3.375gm/50ml 50 ML IV SCH (05:00)
[2025-02-20 06:00] VITALS: BP 137/61; PULSE 77; RESP 18; TEMP 98; O2SAT 96
[2025-02-20 06:54] LABS: CREATININE 0.79 MG/DL (0.40-0.90); TOTAL CARBON DIOXIDE 27.5 MMOL/L (24-32); eCRCL 90 ML/MIN; eGFR 78 ML/MIN
[2025-02-20 07:02] LABS: MEAN PLATELET VOLUME 7.7 FL (7.4-10.4); RED CELL DISTRIBUTION WIDTH 17.5 % (11.5-14.5)
[2025-02-20 08:11] VITALS: RESP 18; O2SAT 96
--- NOTE | 2025-02-20 09:28 | PROGRESS NOTE ---
Ortho Clinic Progress Note History of Present Illness Allergies: Coded Allergies: prazosin (Unverified Allergy, Severe, 02/16/25) Penicillins (Verified Allergy, Unknown, 02/16/25) Patient did not remember any reaction to penicillin and last time she received Rocephin with no reaction fentanyl (Unverified Allergy, Unknown, PANIC ATTACK, 02/18/25) Social History Smoking: Cigarettes Alcohol Use: Sober Drug Use: Marijuana Lives with: Spouse Occupation: unemployed Pain Pain Present: Yes Non-Verbal Pain Scale Used: 7-10 Severe Verbalized Pain Intensity: 8 Location Location Modifier: Right Pain Location: Foot Radiation Location: up to the knee -- 7 is her baseline Primary Aggravating Factor: Exercise/Activity Subjective Patient is POD#2 R foot I&D with closure. States she is doing otherwise well with pain well controlled. Denies n/v/f/c/cp/sob. Has been ambulating as tolerated with postoperative shoe. Objective Vital Signs Date Time Temp Pulse Resp B/P (MAP) Pulse Ox O2 Delivery O2 Flow Rate FiO2 02/20/25 09:03 76 02/20/25 08:58 16 02/20/25 08:11 96 Room Air 02/20/25 06:00 98.0 137/61 (86) 02/19/25 07:30 0.0 Alert and Oreinted x4, Appropriate, Vital signs are stable, In no acute distress, Dressing clean and dry, Wound clean and dry, Calves: soft bilaterally Lab Results: 02/20/25 0653 02/20/25 0530 Problem\Assessment\Plan Plan: Doing otherwise well from surgical standpoint. Awaiting dispo. Please leave dressing intact until follow up. Can reinforce for strike through if needed Will follow intraoperative Cx preliminarily growing GPCs Heel WBAT to the RLE Follow up with Dr. Worthy in 1-2 weeks in the office ROBYN ROBISON DPM Feb 20, 2025 09:28
[2025-02-20 10:00] VITALS: BP 153/81; PULSE 76; RESP 16; TEMP 97.8; O2SAT 96
--- NOTE | 2025-02-20 15:24 | PROGRESS NOTE- Residence ---
Progress Note - Resident Providers to CC Resident Creating Document: COLETTE NAVARRO RES ~ Antibiotic Timeout Antibiotic Ordered?: Yes Subjective Patient was seen at bedside today and she reports the right foot pain is improved, feels better now, last night patient IV lines were infiltrated, so IV line placement was achieved using ultrasound. Antibiotics completed for the day. IV lines infiltrated again overnight, nurse in the morning was informed for IV line placement via ultrasound, continue antibiotics for the day. PICC line to be placed on Friday. Objective Vital Signs Date Time Temp Pulse Resp B/P (MAP) Pulse Ox O2 Delivery O2 Flow Rate FiO2 02/20/25 14:50 16 02/20/25 09:03 76 02/20/25 08:11 96 Room Air 02/20/25 06:00 98.0 137/61 (86) 02/19/25 07:30 0.0 Result Diagram: 02/20/25 0653 02/20/25 0530 General: Awake and Alert, no acute distress. HEENT: Conjunctiva pink, Sclera clear, Mucus Membranes moist. Neck: Supple without masses and tenderness. Resp: Unlabored. Lungs clear to auscultation bilaterally. Heart: Regular Rate and rhythm, normal S1 and S2 without murmur, rub or gallop. Abdomen: Soft and non tender no organomegaly Extremities: Right leg covered with a surgical plaster. Skin: Warm and Dry. Assessment Assessment This is a 44-year-old female with PMH of DMII, HTN and osteomyelitis of right 5th toe s/p surgical amputation of the 5th metatarsus 3 weeks ago, presented to ED complaining of right foot pain at surgical site for the past two days after a fall. Plan Plan Right foot pain / Osteomyelitis of residual 5th metatarsal diaphysis S/p Right foot incision and drainage with deep bone biopsy. CBC and CMP are at normal levels CRP normal Urinalysis normal Blood culture no growth ESR 14 Lactic acid and Pro-calcitonin at normal levels CT right foot shows presumed osteomyelitis of the residual 5th metatarsal diaphysis MRI foot shows- Findings consistent with osteomyelitis in the 5th metatarsal amputation stump, extending to the proximal shaft as detailed above. No visualized evidence for osteomyelitis in the 5th metatarsal base. Plans: Morphine PRN Norcon PRN Normal saline IV Continue Vancomycine IV Continue Zosyn IV Follow wound culture Patient underwent surgery by Dr. Worthy. Procedure performed-Right foot incision and drainage with deep bone biopsy. ID Dr. Dorado was consulted regarding antibiotic coverage. Dr. Dorado will be seeing the patient on Friday. New onset vaginal discharge yellowish white in color Patient is complaining of yellowish white color discharge associated with itching and urinary incontinence UA normal on admission 02/16 Topical Clotrimazole Metronidazole PO Hypertension 02/17 BP 156/68 02/18 BP 182/84 Plans: Home medications amlodipine 5 mg daily and losartan 50 mg daily Amlodipine 10 mg PO once daily and losartan 50 mg p.o. daily initiated Hydralazine 10 mg every 6 hours as needed if SBP more than 160 Diabetes Mellitus type 2 02/16 Random glucose 309 mg/dl 02/17 glucose 291 mg/dl 02/18 glucose level improving 204 02/19 glucose 242 02/20 glucose 281 Plans: Hyperglycemia/hypoglycemia protocol in place including; Lantus 15 mg HS Carb controlled diet Seizure Disorders Patient has seizures since 2013 but she has been seizure free since 3 months Continue home Depakote 125 mg p.o. Fall precautions Anxiety/depression Continue bupropion 150 mg and hydroxyzine 50 mg Peripheral neuropathies, likely diabetic Continue gabapentin 600 mg every 8 hours Hyperlipidemia Continue home medications atorvastatin 40 mg p.o. 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
[2025-02-20 18:00] VITALS: BP 139/76; PULSE 81; RESP 16; TEMP 98.3; O2SAT 95
[2025-02-20 22:00] VITALS: BP 128/72; PULSE 83; RESP 14; TEMP 98.4; O2SAT 90
[2025-02-21 06:00] VITALS: BP 145/70; PULSE 71; RESP 15; TEMP 97.4; O2SAT 95
[2025-02-21 06:12] LABS: MEAN PLATELET VOLUME 7.8 FL (7.4-10.4); RED CELL DISTRIBUTION WIDTH 17.9 % (11.5-14.5)
[2025-02-21 07:04] LABS: CREATININE 0.92 MG/DL (0.40-0.90); TOTAL CARBON DIOXIDE 29.0 MMOL/L (24-32); eCRCL 77 ML/MIN; eGFR 66 ML/MIN
--- NOTE | 2025-02-21 10:06 | PROGRESS NOTE ---
Progress Note Dictate Providers to CC ~ Subjective Subjective: She is well known to me from prior hospitalizations. She is still battling infection at her right foot. She did require drainage/debridement with bone biopsy by Dr. Worthy. [facility] and she is open to going to a medical rehab. Diabetes is poorly controlled. Vascular studies in December were okay. Objective Objective: Pleasant middle-aged female currently sitting up in a chair Lungs clear to auscultation bilaterally Heart regular rate and rhythm Abdomen soft, nontender and nondistended Extremities with right foot currently bandaged Lab Results: 02/21/25 0511 02/21/25 0511 Lab comments: Culture with MRSA with vancomycin HERB 1 Radiology comments: RI right foot with findings consistent with osteomyelitis in the 5th metatarsal amputation stump, extending to the proximal shaft Problem\Assessment\Plan Additional Plan 1. Osteomyelitis of the right foot involving the 5th metatarsal - MRSA on culture Foot has been debrided/drained by Dr. Worthy 2. Poorly controlled diabetes mellitus type 2 3. Bipolar disorder with homelessness Continue vancomycin Given her diabetes, would still maintain broad coverage with the addition of ceftriaxone and metronidazole PICC placement Plan for six weeks of therapy Wound care and offloading Transfer to [facility] or other rehab facility DONTRELL KINNEY MD Feb 21, 2025 10:06
[2025-02-21] MEDS: CefTRIAXone 2gm/D5W 50ml BAG 50 ML IV SCH (12:06)
--- NOTE | 2025-02-21 14:43 | PROGRESS NOTE- Residence ---
Progress Note - Resident Providers to CC Resident Creating Document: CHRISTOPHER GOLDSMITH RES ~ Antibiotic Timeout Antibiotic Ordered?: Yes Subjective Patient was seen and examined at bedside. Patient endorses that right foot pain improved and she feels better now. Ordered PICC line for IV antibiotics for longer duration. Objective Vital Signs Date Time Temp Pulse Resp B/P (MAP) Pulse Ox O2 Delivery O2 Flow Rate FiO2 02/21/25 11:34 17 02/21/25 09:28 90 02/21/25 08:00 Room Air 0.0 02/21/25 06:00 97.4 145/70 (95) 95 Result Diagram: 02/21/25 0511 02/21/25 0511 Awake , alert and oriented to time,place, person,not in distress HEENT: Atraumatic, normocephalic, PERRLA, EOMI, anicteric sclera ; pink conjunctiva, moist mucos membranes Neck: Trachea midline. Supple, normal range of motion, no JVD, no lymphadenopathy Chest and Respiratory: Equal breath sounds bilaterally, no tachypnea, wheezing, ronchi,rubs .Chest wall is symmetric and without deformity. Cardiac: S1, S2 heard,Regular rate and rhythm, no murmurs heard. Abdomen: Soft, No tenderness, No guarding or rigidity, Herrera's sign negative. normal bowel sounds x4 quadrant, no hepatosplenomegaly MSK: Range of motion of all extremities are normal. There is no joint pain or joint swelling or joint erythema. There is no muscle pain or tenderness or swelling. Extremities: warm, well-perfused, No cyanosis, clubbing, 2+ pulses felt. Right foot under dressing. Neurological: Speech is clear, alert, and oriented x 4. No sensory or motor deficits. Cranial nerves II-XII intact. Skin: Warm and dry Psychiatry: Affect and mood are normal Assessment Assessment A 44 years old female patient with past medical history of type 2 diabetes, hypertension and osteomyelitis of right 5th toe s/p surgical amputation of the 5th metatarsus 3 weeks ago admitted with right foot osteomyelitis. Plan Plan Osteomyelitis of right foot involving 5th metatarsal. S/p Right foot incision and drainage with deep bone biopsy by Dr. Worthy on 02/18/25 CBC and CMP are at normal levels CRP normal Urinalysis normal Blood culture no growth ESR 14 Lactic acid and Pro-calcitonin at normal levels CT right foot shows presumed osteomyelitis of the residual 5th metatarsal diaphysis MRI foot shows- Findings consistent with osteomyelitis in the 5th metatarsal amputation stump, extending to the proximal shaft as detailed above. No visualized evidence for osteomyelitis in the 5th metatarsal base. Plans: Morphine PRN Norcon PRN Normal saline IV Continue Vancomycine IV Continue Zosyn IV Follow wound culture Patient underwent surgery by Dr. Worthy. Procedure performed-Right foot incision and drainage with deep bone biopsy. ID Dr. Dorado was consulted regarding antibiotic coverage. Dr. Dorado will be seeing the patient on Friday. 02/21/25: Wound culture is positive for Staphylococcus aureus. Sensitive for vancomycin. Pain management with IV morphine and [place] p.r.n. Discontinue IV fluids the IV Zosyn. PICC line was ordered. Continue IV vancomycin Q 8 H and started on IV ceftriaxone 2 g once daily and IV metronidazole 500 mg Q 8 H for 6 weeks of duration as per Dr. Dorado recommendation Planning to transfer to SNF. Diabetes Mellitus type 2 02/16 Random glucose 309 mg/dl 02/17 glucose 291 mg/dl 02/18 glucose level improving 204 02/19 glucose 242 02/20 glucose 281 Plans: Hyperglycemia/hypoglycemia protocol in place including; Lantus 15 mg HS Carb controlled diet 02/21/25: Carb controlled diet Patient was educated about the diabetes and its complications. Started on Lantus 20 mg HS Continue low-dose insulin Humalog protocol. New onset vaginal discharge yellowish white in color Patient is complaining of yellowish white color discharge associated with itching and urinary incontinence UA normal on admission 02/16 Topical Clotrimazole Metronidazole PO Hypertension 02/17 BP 156/68 02/18 BP 182/84 Plans: Home medications amlodipine 5 mg daily and losartan 50 mg daily Amlodipine 10 mg PO once daily and losartan 50 mg p.o. daily initiated Hydralazine 10 mg every 6 hours as needed if SBP more than 160 Seizure Disorders Patient has seizures since 2013 but she has been seizure free since 3 months Continue home Depakote 125 mg p.o. Fall precautions Anxiety/depression Continue bupropion 150 mg and hydroxyzine 50 mg Peripheral neuropathies, likely diabetic Continue gabapentin 600 mg every 8 hours Hyperlipidemia Continue home medications atorvastatin 40 mg p.o. 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 PICC line was ordered. Advised IV antibiotics for 6 weeks. Planning to transfer to SNF. Resident attestation The above note has been reviewed and supervised by a senior resident PGY3 Patient was seen, examined and discussed with the attending physician Bronwyn Goldsmith MD Internal Medicine Resident, PGY 1 Date of Service: Feb 21, 2025 Billing Provider: MILES ESCOBEDO MD Common Visit Codes: [id number] INP/OBS CARE(HIGH) CHRISTOPHER GOLDSMITH, RES Feb 21, 2025 14:43 MILES ESCOBEDO MD Feb 22, 2025 07:48
[2025-02-21] MEDS: metroNIDAZOLE-Flagyl 500mg/NS 100 ML IV SCH (16:34)
[2025-02-21] MEDS: JUVEN Smoothie Arginine/Glut./Ca2+Bmb (Juven 19.3pkt) 240ml cup PO SCH (17:30)
[2025-02-21 18:00] VITALS: BP 148/79; PULSE 92; RESP 16; TEMP 97.7; O2SAT 95
[2025-02-21] MEDS: insulin glargine (Lantus) pen - multi-dose SQ SCH (21:33)
[2025-02-21 22:00] VITALS: BP 121/46; PULSE 76; RESP 15; TEMP 98.3; O2SAT 94
[2025-02-22 06:00] VITALS: BP 180/92; PULSE 90; RESP 16; TEMP 97.9; O2SAT 96
[2025-02-22 07:22] VITALS: BP 138/68; PULSE 79; RESP 17; TEMP 98.1; O2SAT 96
[2025-02-22 08:00] VITALS: RESP 16; O2SAT 96
[2025-02-22 08:57] LABS: MEAN PLATELET VOLUME 8.0 FL (7.4-10.4); RED CELL DISTRIBUTION WIDTH 17.9 % (11.5-14.5)
[2025-02-22 09:15] LABS: CREATININE 0.86 MG/DL (0.40-0.90); TOTAL CARBON DIOXIDE 29.0 MMOL/L (24-32); eCRCL 82 ML/MIN; eGFR 71 ML/MIN
[2025-02-22 10:00] VITALS: BP 142/72; PULSE 82; RESP 17; TEMP 98.6; O2SAT 97
--- NOTE | 2025-02-22 18:12 | DISCHARGE SUMMARY-Residence ---
Discharge Summary Providers to CC Resident Creating Document: VIRIDIANACOLETTE FLOWER RES ~ Discharge Summary Admission Diagnosis: possible cellulitis Hospital Course DATE OF ADMISSION: 02/16/25 DATE OF DISCHARGE:02/22/25 Imaging- Chest x-ray- Lungs: No focal consolidation. Pleura: No effusion. No pneumothorax. Cardiomediastinal contours: Unremarkable. Lower extremity CT Significant osteomyelitis with surrounding periosteal reaction of the 5th metatarsal stump. Surrounding phlegmon. Overlying surgical albaro. Presumed plantar soft tissue ulceration/ pressure related change along the plantar aspect of the residual 2nd metatarsal head posterior calcaneal tuberosity spurring. In regards to the clinical question, no measurable definitive CT apparent abscess on the provided examination. Extensive surrounding subcutaneous adipose tissue edema Echo ultrasound: Overall LVEF is 60-65%. Normal LV size and wall thickness. Overall systolic function is normal. Right ventricle appears mildly dilated with adequate function. Trileaflet AV appears mildly sclerotic without stenosis. No insufficiency. AV not fully evaluated due to limited exam. The mitral valve is normal in structure with trace regurgitation. MV not fully evaluated due to limited exam. The tricuspid valve is normal in structure with trace regurgitation. Normal pericardium. No effusion. Lower Extremity MRI 1. Soft tissue inflammatory changes in the lateral aspect of the forefoot with fluid collection adjacent to the 5th metatarsal amputation stump consistent with cellulitis and small abscess. 2. Findings consistent with osteomyelitis in the 5th metatarsal amputation stump, extending to the proximal shaft as detailed above. No visualized evidence for osteomyelitis in the 5th metatarsal base. Discharge Diagnosis\Comment: Cellulitis with accompanying osteomyelitis in the 5th metatarsal amputation stump the right foot Operations\Procedures: Patient underwent surgery by Dr. Worthy. Procedure performed-Right foot incision and drainage with deep bone biopsy. Consultants: MAXIM Dorado Complications: None Condition on DC: Stable Discharge Summary: 44-year-old female with PMH of Diabetes Mellitus, Hypertension, Sheree-Danlos Syndrome, Bipolar disorder, seizure disorder and right foot osteomyelitis s/p surgery 3 weeks ago, presented to ED complaining of Right foot pain . Patient stated that she injured her right foot after a fall. Patient reported that she had osteomyleitis and underwent surgical amputation of right right 5th toe due to osteomyelitis and she did not follow up with Dr. Dumont powder coater. Would culture at the previous admission grew MRSA and Enterococcus which patient completed two weeks of oral doxycicline ouptatient. Patient also reported diarrhea for the past 4 days, general body ache for the past 2 days, [place]a and chills since this morning. She denies any fever, headache, chest pain, SOB and abdominal pain. Hospital stay course- Patient's vitals were stable during the time of admission. Lactic acid procal levels were normal. Patient was given pain medications for her pain control. And patient was started on vancomycin and Zosyn antibiotics and wound culture was taken and sent to the lab. MRI and CT of the lower foot was done which showed osteomyelitis after which Dr. Worthy was consulted and she was taken for surgery. Cultures were positive for staph aureus and sensitive for vancomycin hence the patient was continued on IV vanco and started on IV ceftriaxone and IV metronidazole for 6 weeks of duration as per ID recommendations. Patient's blood glucose levels were monitored and well controlled during her hospital stay. However, her IV lines were being infiltrated so had to repeatedly change her IV lines using ultrasound. Patient also complained of new onset vaginal discharge during her hospital stay for which she was given topical clotrimazole and metronidazole p.o. her hypertension was treated with amlodipine and losartan and hydralazine as needed. Patient was finally transferred to [facility] for her 6 weeks of antibiotic treatment. Her condition improved significantly and was stable at the time of transfer. Vital Signs Date Time Temp Pulse Resp B/P (MAP) Pulse Ox O2 Delivery O2 Flow Rate FiO2 02/22/25 10:00 98.6 82 17 142/72 (95) 97 Room Air 02/22/25 08:00 0.0 Laboratory Tests Test 02/20/25 20:42 02/21/25 05:11 02/21/25 07:14 02/21/25 12:19 Glucometer 386 mg/dl 394 mg/dl 415 mg/dl White Blood Count 6.6 X10'3 Red Blood Count 4.32 X10'6 Hemoglobin 11.1 g/dl Hematocrit 33.3 % Mean Corpuscular Volume 77.2 FL Mean Corpuscular Hemoglobin 25.7 PG Mean Corpuscular Hemoglobin Concent 33.2 g/dL Red Cell Distribution Width 17.9 % Platelet Count 302 X10'3 Mean Platelet Volume 7.8 FL Neutrophils (%) (Auto) 43.9 % Lymphocytes (%) (Auto) 43.1 % Monocytes (%) (Auto) 8.4 % Eosinophils (%) (Auto) 3.6 % Basophils (%) (Auto) 1.0 % Neutrophils # (Auto) 2.9 X10'3 Lymphocytes # (Auto) 2.8 X10'3 Monocytes # (Auto) 0.6 X10'3 Eosinophils # (Auto) 0.2 X10'3 Basophils # (Auto) 0.1 X10'3 CBC Comment Sodium Level 134 MMOL/L Potassium Level 5.0 MMOL/L Chloride Level 97 MMOL/L Carbon Dioxide Level 29.0 MMOL/L Anion Gap 8 Blood Urea Nitrogen 23 MG/DL Creatinine 0.92 MG/DL Estimated GFR/1.73 m2 66 ML/MIN BUN/Creatinine Ratio 25.0 Glucose Level 386 MG/DL Calcium Level 9.0 MG/DL Total Bilirubin 0.3 MG/DL Aspartate Amino Transf (AST/SGOT) 18 U/L Alanine Aminotransferase (ALT/SGPT) 21 U/L Alkaline Phosphatase 131 IU/L Total Protein 6.8 G/DL Albumin 2.9 G/DL Globulin 3.9 G/DL Albumin/Globulin Ratio 0.7 Chemistry Comments Test 02/21/25 17:08 02/21/25 21:26 02/22/25 07:18 02/22/25 08:31 Glucometer 418 mg/dl 360 mg/dl 426 mg/dl White Blood Count 6.4 X10'3 Red Blood Count 4.65 X10'6 Hemoglobin 12.0 g/dl Hematocrit 36.0 % Mean Corpuscular Volume 77.4 FL Mean Corpuscular Hemoglobin 25.7 PG Mean Corpuscular Hemoglobin Concent 33.3 g/dL Red Cell Distribution Width 17.9 % Platelet Count 330 X10'3 Mean Platelet Volume 8.0 FL Neutrophils (%) (Auto) 47.5 % Lymphocytes (%) (Auto) 40.4 % Monocytes (%) (Auto) 7.3 % Eosinophils (%) (Auto) 3.7 % Basophils (%) (Auto) 1.1 % Neutrophils # (Auto) 3.0 X10'3 Lymphocytes # (Auto) 2.6 X10'3 Monocytes # (Auto) 0.5 X10'3 Eosinophils # (Auto) 0.2 X10'3 Basophils # (Auto) 0.1 X10'3 CBC Comment Test 02/22/25 08:34 02/22/25 12:20 Sodium Level 132 MMOL/L Potassium Level 5.2 MMOL/L Chloride Level 96 MMOL/L Carbon Dioxide Level 29.0 MMOL/L Anion Gap 7 Blood Urea Nitrogen 25 MG/DL Creatinine 0.86 MG/DL Estimated GFR/1.73 m2 71 ML/MIN BUN/Creatinine Ratio 29.1 Glucose Level 409 MG/DL Calcium Level 9.5 MG/DL Total Bilirubin 0.1 MG/DL Aspartate Amino Transf (AST/SGOT) 21 U/L Alanine Aminotransferase (ALT/SGPT) 29 U/L Alkaline Phosphatase 131 IU/L Total Protein 7.9 G/DL Albumin 3.3 G/DL Globulin 4.6 G/DL Albumin/Globulin Ratio 0.7 Chemistry Comments Glucometer 398 mg/dl Physical examination findings at the time of discharge- Awake , alert and oriented to time,place, person,not in distress HEENT: Atraumatic, normocephalic, PERRLA, EOMI, anicteric sclera ; pink conjunctiva, moist mucos membranes Neck: Trachea midline. Supple, normal range of motion, no JVD, no lymphadenopathy Chest and Respiratory: Equal breath sounds bilaterally, no tachypnea, wheezing, ronchi,rubs .Chest wall is symmetric and without deformity. Cardiac: S1, S2 heard,Regular rate and rhythm, no murmurs heard. Abdomen: Soft, No tenderness, No guarding or rigidity, Herrera's sign negative. normal bowel sounds x4 quadrant, no hepatosplenomegaly MSK: Range of motion of all extremities are normal. There is no joint pain or joint swelling or joint erythema. There is no muscle pain or tenderness or swelling. Extremities: warm, well-perfused, No cyanosis, clubbing, 2+ pulses felt. Right foot under dressing. Neurological: Speech is clear, alert, and oriented x 4. No sensory or motor deficits. Cranial nerves II-XII intact. Skin: Warm and dry Psychiatry: Affect and mood are normal Additional instructions given by the doctor at the time of discharge- Continue care at [facility] for antibiotic therapy for 6 weeks' duration. Please be compliant with all the medications given. In case you notice any wounds, pus drainage or pain in the foot please come to the hospital. *Problems/Diagnosis: (1) Foot pain Status: Acute (2) Non-healing surgical wound Status: Acute (3) Leg swelling Status: Acute (4) Osteomyelitis of toe Status: Acute (5) Bipolar disorder current episode depressed (6) Depression, unspecified (7) Accelerated hypertension Status: Acute (8) Hyperlipidemia (9) Sheree-Danlos syndrome (10) Peripheral neuropathy (11) Seizure disorder Total Time Spent on D/C: > 30 Minutes Date of Service: Feb 22, 2025 Billing Provider: MILES ESCOBEDO MD Common Visit Codes: 86055-ESP/OBS DISCH DAY >30min COLETTE SANCHEZ, RES Feb 22, 2025 17:46 MILES ESCOBEDO MD Feb 24, 2025 07:41
== END 2025-02-22 16:25 | DRG 349 ==
LOC: ER 08:11 → ED HOLD 14:21 → ORTHO 4S 18:45
PROVIDERS: ADMIT Internal Medicine; ATTEND Internal Medicine
PROC: BQ2R1ZZ Computerized Tomography (CT Scan) of Right Lower Extremity using Low Osmolar Contrast (ICD-10-PCS; 2025-02-16)
PROC: 3E0V329 Introduction of Other Anti-infective into Bones, Percutaneous Approach (ICD-10-PCS; 2025-02-18)
PROC: 0Y9M0ZZ Drainage of Right Foot, Open Approach (ICD-10-PCS; 2025-02-18)
PROC: 0QBN0ZX Excision of Right Metatarsal, Open Approach, Diagnostic (ICD-10-PCS; principal; 2025-02-18 15:04)
PROC: 02HV33Z Insertion of Infusion Device into Superior Vena Cava, Percutaneous Approach (ICD-10-PCS; 2025-02-22)
PROC: B548ZZA Ultrasonography of Superior Vena Cava, Guidance (ICD-10-PCS; 2025-02-22)
DX: T87.43 Infection of amputation stump, right lower extremity (principal); Z59.00 Homelessness unspecified; I11.0 Hypertensive heart disease with heart failure; I50.9 Heart failure, unspecified; B95.62 Methicillin resistant Staphylococcus aureus infection as the cause of diseases classified elsewhere; E11.65 Type 2 diabetes mellitus with hyperglycemia; E78.5 Hyperlipidemia, unspecified; F17.210 Nicotine dependence, cigarettes, uncomplicated; G40.909 Epilepsy, unspecified, not intractable, without status epilepticus; F31.9 Bipolar disorder, unspecified; F41.9 Anxiety disorder, unspecified; J45.909 Unspecified asthma, uncomplicated; N89.8 Other specified noninflammatory disorders of vagina; Y83.5 Amputation of limb(s) as the cause of abnormal reaction of the patient, or of later complication, without mention of misadventure at the time of the procedure; Z81.8 Family history of other mental and behavioral disorders; Z82.49 Family history of ischemic heart disease and other diseases of the circulatory system; Z56.0 Unemployment, unspecified; Z88.0 Allergy status to penicillin; Z88.8 Allergy status to other drugs, medicaments and biological substances; Q79.60 Ehlers-Danlos syndrome, unspecified; Z87.820 Personal history of traumatic brain injury; Y92.89 Other specified places as the place of occurrence of the external cause
CPT/HCPCS: 36415; 36569; 71045; 73220; 73701; 76942; 80048; 80053; 80061; 80202; 81001; 81025; 82948; 83605; 83735; 84145; 84702; 84703; 85025; 85651; 86140; 87040; 87070; 87075; 87077; 87081; 87088; 87102; 87186; 93005; 93308; 96365; 96367; 96375; 97116; 97161; 97530; 99285; A4618; A6212; A6222; A6223; A6253; A6258; A6446; A6449; A7000; C1713; C1751; G0378; J0360; J0696; J1171; J1644; J1815; J2003; J2250; J2270; J2543; J2704; J3010; J3373; J3374; J3490; J7030; J7040; Q0177; Q9967

== ENCOUNTER 2025-04-09 11:37 | Inpatient (IN) | payer MEDICAID ==
[~2025-04-09] VITALS: Ht 172.7 cm; Wt 109.8 kg
[~2025-04-09 11:37] MED LIST changes: -AMOX-580 PO
--- NOTE | 2025-04-09 12:02 | ELECTROCARDIOGRAPH REPORT ---
[facility] Test Date: 2025-04-09 Test Time: 11:49:38 Pat Name: NINA FERRER Department: EMERGENCY ROOM Room: [place] [id number] Gender: F Library Associate: CURT : 1980 Requested By: THOMAS ARROYO Order Number: [id number] Reading MD: Dr. ELLIOTT Wood Measurements Intervals Pavilion Rate: 115 P: 42 ND: 177 QRS: -21 QRSD: 93 T: 75 QT: 333 QTc: 461 Interpretive Statements Sinus tachycardia Borderline left axis deviation Borderline ST depression, lateral leads Electronically Signed On 04-10-2025 15:17:[address] ELLIOTT Wood Please click the below link to view image of tracing.
[2025-04-09 12:14] LABS: MEAN PLATELET VOLUME 8.1 FL (7.4-10.4); RED CELL DISTRIBUTION WIDTH 15.3 % (11.5-14.5)
[2025-04-09 12:30] LABS: CREATININE 0.91 MG/DL (0.40-0.90); TOTAL CARBON DIOXIDE 26.0 MMOL/L (24-32); eCRCL 78 ML/MIN; eGFR 67 ML/MIN
[2025-04-09 12:32] LABS: LEUKOCYTE ESTERASE ,URINE NEGATIVE (Neg); NITRITES, URINE NEGATIVE (Neg); OCCULT BLOOD,URINE MODERATE (Neg)
[2025-04-09 12:34] LABS: UA COLLECTION TYPE CLN CATCH MIDSTREAM; URINE HCG NEGATIVE (NEG)
[2025-04-09 12:39] LABS: MUCUS STRANDS MODERATE /LPF (Neg); SQUAMOUS EPITHELIAL CELL,UR MANY /LPF (FEW)
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
[2025-04-09] MEDS: ondansetron/PF 4mg/2ml inj IV ONE ×2 (14:02→15:51)
[2025-04-09] MEDS: diazepam inj 5 MG/ML inj. IV ONE (14:02)
[2025-04-09] MEDS: normal saline 1000ML IV soln IVB ONE (14:07)
[2025-04-09] MEDS: insulin regular, human 10 units/0.1 ml syringe IV ONE (14:20)
[2025-04-09] MEDS ORDERED: mag hydrox/Alum hydrox/simeth 30ml oral suspension PO PRN (16:20)
[2025-04-09] MEDS ORDERED: magnesium Cl slow-release 64mg tablet PO PRN (16:20)
[2025-04-09] MEDS ORDERED: bisacodyl 10mg suppository rectal RC PRN (16:20)
[2025-04-09] MEDS ORDERED: potassium Cl 20 mEq SR tablet PO PRN ×2 (16:20)
[2025-04-09] MEDS ORDERED: magnesium hydroxide 30ml (MOM) UD suspension PO PRN (16:20)
[2025-04-09] MEDS ORDERED: magnesium sulf-water 2g/50mL 50 ML IV PRN (16:20)
[2025-04-09] MEDS ORDERED: potassium Cl 40MEQ/1/2NS 520ml 520 ML IV PRN (16:20)
[2025-04-09] MEDS ORDERED: magnesium sulf-water 4G/100mL 100 ML IV PRN (16:20)
[2025-04-09 16:51] LABS: PHOSPHORUS 3.4 MG/DL (2.3-4.5); PRO BRAIN NATRIURETIC PEPTIDE 796 PG/ML (0-125)
[2025-04-09] MEDS: normal saline 1000ml 1,000 ML IV SCH (17:14)
[2025-04-09] MEDS: metoclopramide 5 mg/ml inj IV PRN (17:15)
[2025-04-09] MEDS: morphine 4 MG/ML inj SYRINge IV PRN (17:17)
[2025-04-09 17:21] LABS: APTT 23 SECONDS (22-32); INR 1.1 INR
[2025-04-09] MEDS ORDERED: DEXTROSE 15 GM of carb/4 tabs (each vial/BOTTLE has 4 tablets) PO PRN ×2 (17:25)
[2025-04-09] MEDS ORDERED: glucagon, human recombinant 1mg kit SUBCUT PRN (17:25)
[2025-04-09] MEDS ORDERED: dextrose 50%-water 50ml dispensing syringe IV PRN ×2 (17:25)
[2025-04-09] MEDS: levoFLOXACIN-Levaquin 500mg/D5 100 ML IV ONE (18:15)
[2025-04-09] MEDS: metoprolol tartrate 1mg/ml inj IV ONE (18:16)
--- NOTE | 2025-04-09 18:28 | RADIOLOGY REPORT ---
Exam: CT CT ABDOMEN PELVIS History: abdom pain Vomiting COMPARISON: None Technique: Multidetector spiral CT of the abdomen and pelvis was performed from lung bases to pubic symphysis. Intravenous contrast was not administered during this examination. Axial, coronal and sagittal multiplanar reformats were performed by the technologist on a separate workstation. Radiation Dose : 1. Abdomen/Pelvis: CTDIvol 7.7 mGy, DLP 243.73 mGy*cm. Findings: Lung Bases: Trace bilateral pleural effusions. Bilateral septal thickening in keeping with pulmonary edema. Liver: Liver is unremarkable. Gallbladder and Biliary Tree: Cholecystectomy. No biliary ductal dilatation Spleen: Unremarkable Pancreas: Unremarkable Adrenal Glands: Unremarkable Kidneys: Punctate nonobstructing left nephrolithiasis measuring 1-2 mm. There is mild left perinephric edema. No hydronephrosis. No ureteral stones. Right kidney is unremarkable. Bladder: Unremarkable Bowel: No acute bowel abnormality. Normal appendix. Ascites: Absent Lymphadenopathy: No lymphadenopathy. Abdominal Wall and Mesentery: Unremarkable. Vasculature: Abdominal aortic dimensions are normal. Abdominal and pelvic vessels demonstrate normal enhancement. Pelvic Organs: Unremarkable Musculoskeletal: No aggressive focal bony lesions, acute fractures or dislocation. Degenerative changes at L4-5. IMPRESSION: Left perinephric edema may be seen with pyelonephritis. No hydronephrosis Punctate nonobstructing left nephrolithiasis Trace bilateral pleural effusions and pulmonary edema. Cholecystectomy Radiation optimization: All CT scans at this facility use at least one of these dose optimization techniques: automated exposure control mA and/or kV adjustment per patient size (includes targeted exams where dose is matched to clinical indication) or iterative reconstruction.
[2025-04-09] MEDS: diazepam inj 5 MG/ML inj. IV PRN (19:36)
[2025-04-09] MEDS ORDERED: docusate sod 100mg capsule PO SCH (20:00)
[2025-04-09] MEDS: K and/or MAG REPLACEMENT MC SCH (20:00)
[2025-04-09] MEDS: ondansetron/PF 4mg/2ml inj IV PRN (20:17)
[2025-04-09] MEDS: INSULIN LISPRO 100 UNIT/ML INSULN.PEN MULTI-DOSE SQ SCH (20:21)
[2025-04-09] MEDS: heparin, porcine 5000 units/ml vial SQ SCH (20:36)
[2025-04-09] MEDS: labetalol 20mg/4ml (5mg/ml) syringe IV ONE (21:22)
--- NOTE | 2025-04-09 21:29 | HISTORY AND PHYSICAL ---
History & Physical Providers to CC ~ History of Present Illness Reason for Admit\Complaint: Abdominal pain nausea and vomiting History of Present Illness Patient comes in for evaluation of abdominal pain, nausea, and vomiting. A review of the record shows that the patient was admitted in January those an infected diabetic foot ulcer with osteomyelitis and a deep space infection. She was placed on antibiotics and went to the OR, where Dr. Worthy did an I and D of the deep space infection, took a bone biopsy, and placed antibiotic beads. Patient was sent home with six weeks of Rocephin and Flagyl, which she completed at [facility]. She was sent home three days ago, reports that she has been vomiting since the day after she got home. She is vomiting nonstop throughout the day, with associated epigastric and bilateral upper quadrant discomfort, 5-6 times per day of diarrhea. She is unable to keep down medications, solids, or liquids. She denies any blood in the stool, she denies any dysuria or fever. Patient denied any pain over lower abdomen. Patient has not been taking blood sugar readings because she does not have a glucometer at home, but was noted to be extremely high in the ER department. She was on narcotic pain medications at [facility], and is currently still taking [place] at home. Blood pressure and heart rate was also elevated when I evaluated the patient. Patient denied use of any alcohol or tobacco. Patient is using cannabis at home. The patient she follows in [facility] in they are the PCP for her. I examined her wound and well healing wound present over right lower extremity. 2 open area noticed Allergies: Coded Allergies: prazosin (Unverified Allergy, Severe, 02/16/25) Penicillins (Verified Allergy, Unknown, 02/16/25) Patient did not remember any reaction to penicillin and last time she received Rocephin with no reaction fentanyl (Unverified Allergy, Unknown, PANIC ATTACK, 02/18/25) Home Medications Home Medications Active Amlodipine Besylate 5 Mg Tablet 2 Tab PO DAILY 30 Days Ferrous Sulfate 325 Mg (65 Mg Iron) Tablet 1 Tab PO DAILY 90 Days Take 1 tablet by mouth on an empty stomach once daily Lantus* (Insulin Glargine) 100 Unit/1 Ml Vial 14 Unit SQ HS 90 Days Losartan Potassium 50 Mg Tablet 2 Tab PO DAILY 30 Days Reported Trazodone Hcl 150 Mg Tablet 1 Tab PO HS 30 Days Hydroxyzine Pamoate 50 Mg Capsule 1 Cap PO Q6H PRN 30 Days Gabapentin 600 Mg Tablet 1 Tab PO Q8H 30 Days Depakote (Divalproex Sodium) 250 Mg Tablet.dr 1 Tab PO BID 30 Days Depakote (Divalproex Sodium) 125 Mg Tablet.dr 1 Tab PO HS 30 Days Wellbutrin Sr (Bupropion HCl) 150 Mg Tablet.er 1 Tab PO DAILY 30 Days Lipitor* (Atorvastatin Calcium) 40 Mg Tablet 1 Tab PO DAILY 30 Days [place] 5/325 MG (Acetaminophen/Hydrocodone Bitart) 5 Mg/325 Mg Tablet 1-2 Tab PO Q6H PRN Prilosec Otc (Omeprazole Magnesium) 20 Mg Tablet.dr 1 Tab PO BID Zanaflex (Tizanidine HCl) 4 Mg Capsule 1 Cap PO Q8H PRN Saphris (Asenapine Maleate) 5 Mg Tab.subl 1 Tab SL TID Past Medical History Past Medical History Diabetes Mellitus, Hypertension, Sheree-Danlos Syndrome, Bipolar disorder, seizure disorder and right foot osteomyelitis s/p surgery Past Surgical History Surgical History Comment Rigt foot surgery (5th metatarsal amputation) Patient had two spinal surgeries in August and December 2024. Family History Family History: FH: depression FATHER MOTHER (Heroin use disorder) FH: heart disease Paternal Grandfather Past Social History Social History Comment The patient reside in [facility] Review of system as mentioned above in HPI rest of the review of system unremarkable Exam Vitals: Vital Signs Date Time Temp Pulse Resp B/P (MAP) Pulse Ox O2 Delivery O2 Flow Rate FiO2 04/09/25 21:20 16 04/09/25 20:54 108 203/80 (121) 96 04/09/25 19:18 2.0 04/09/25 17:49 98.6 General: General-patient not in any acute distress, awake chronically ill-appearing, obese. HEENT-atraumatic normocephalic, neck supple without elevated JVD, no thyromegaly or carotid bruit. No lymphadenopathy bilaterally. Eyes-no icterus or pallor seen in eyes Chest-clear to auscultation bilaterally, breathing nonlabored no tachypnea, no wheezing, no crepitation, no crackles. Heart-S1-S2 normal, regular heart rate no murmur Abdomen bowel sounds positive on auscultation, soft nondistended, subjective tenderness present over upper abdomen on palpation no guarding, no rigidity Skin no active skin rash Neurology-grossly intact, nonfocal awake Extremity- no pedal edema able to move all 4 extremities, well healing right lower extremity wound Psychiatry - patient is not confused or agitated cooperated during physical examination Diagnostic Data Last Recorded Lab Results: 04/09/25 1154 04/09/25 1154 Diagnostic Data: Laboratory Tests Test 04/09/25 16:44 Prothrombin Time 11.0 SECONDS (9.0-12.0) INR International Normalized Ratio 1.1 INR Activated Partial Thromboplast Time 23 SECONDS (22-32) Coagulation Comments Additional Plan Patient is a 44-year-old female with PMH of diabetes mellitus, hypertension and osteomyelitis s/p surgical amputation of 5th right toe presented to ED abdominal pain, nausea, and vomiting. The abdomen and pelvis ordered. Patient is started on IV fluids IV antibiotics and clear liquid diet. For elevated blood pressure patient is started on antihypertensive medication. On IV fluids for tachycardia ordered metoprolol also. Order hypo and hyperglycemic protocol for type 2 diabetes. Patient is strongly advised to stop cannabis and risks explained. I suspect Patient's nausea vomiting and abdominal pain likely due due to cannabis use. We will continue to monitor patient's labs and vitals closely . All labs, diagnostic workup, old records and ER records . Needs physical therapy evaluation before discharge . Code status discussed with the patient patient wishes full code Time spent in discussing code status 16 minutes. We will do home medication reconciliation once updated in electronic by nursing staff or pharmacist. Further management depending on response to treatment and I will continue to follow patient in a.m. Date of Service: Apr 09, 2025 Billing Provider: ADIN STEWART MD Common Visit Codes: [id number] INP/OBS CARE (HIGH) Secondary Visit Codes: [id number] CARE PLAN 30 MINUTES ADIN STEWART MD Apr 09, 2025 21:29
[2025-04-09 23:10] VITALS: BP 185/91; PULSE 93; RESP 9; TEMP 97.1; O2SAT 95
[2025-04-10] VITALS (11 sets, daily range): BP systolic 149–198; BP diastolic 83–95; PULSE 72–103; RESP 13–20; TEMP 96.9–98.4; O2SAT 92–98
[2025-04-10] MEDS: INSULIN LISPRO 100 UNIT/ML INSULN.PEN MULTI-DOSE SQ SCH ×2 (00:24→21:06)
[2025-04-10] MEDS: insulin glargine (Lantus) pen - multi-dose SQ ONE (03:15)
[2025-04-10] MEDS: insulin glargine (Lantus) pen - multi-dose SQ SCH ×2 (03:34→21:07)
[2025-04-10 06:47] LABS: CHOL/HDL RATIO 3.8 (0.00-4.99); CREATININE 0.68 MG/DL (0.40-0.90); LDL CHOLESTEROL 86 MG/DL (50-100); TOTAL CARBON DIOXIDE 24.6 MMOL/L (24-32); eCRCL 104 ML/MIN; eGFR > 90 ML/MIN
[2025-04-10] MEDS ORDERED: non-formulary drug (Gabapentin 1 TAB) PO SCH (08:00)
[2025-04-10] MEDS ORDERED: non-formulary drug (Atorvastatin Calcium* (Lipitor*) 1 TAB) PO SCH (08:00)
[2025-04-10] MEDS ORDERED: DIVALPROEX SODIUM PO SCH (08:00)
[2025-04-10] MEDS: buPROPion SR 150mg tablet PO SCH (08:02)
[2025-04-10] MEDS: divalproex 250mg tablet, delayed-release PO SCH (08:04)
[2025-04-10 08:14] LABS: MEAN PLATELET VOLUME 8.0 FL (7.4-10.4); RED CELL DISTRIBUTION WIDTH 15.1 % (11.5-14.5)
--- NOTE | 2025-04-10 17:41 | PROGRESS NOTE ---
Daily Progress Note Providers to CC ~ Antibiotic Timeout Antibiotic Ordered?: Yes Subjective Was seen in presence of her today patient's current condition update with . Right lower extremity wound healing well. Patient's diet advanced to full liquid and we will once diet as tolerated. Objective Vital Signs Date Time Temp Pulse Resp B/P (MAP) Pulse Ox O2 Delivery O2 Flow Rate FiO2 04/10/25 17:08 166/84 (111) 04/10/25 16:17 96 04/10/25 15:47 15 04/10/25 15:00 97.6 97 Room Air 04/10/25 06:00 2.0 Result Diagram: 04/10/25 0749 04/10/25 0529 General-patient not in any acute distress, awake chronically ill-appearing, obese. HEENT-atraumatic normocephalic, neck supple without elevated JVD, no thyromegaly or carotid bruit. No lymphadenopathy bilaterally. Eyes-no icterus or pallor seen in eyes Chest-clear to auscultation bilaterally, breathing nonlabored no tachypnea, no wheezing, no crepitation, no crackles. Heart-S1-S2 normal, regular heart rate no murmur Abdomen bowel sounds positive on auscultation, soft nondistended, subjective tenderness present over upper abdomen on palpation no guarding, no rigidity Skin no active skin rash Neurology-grossly intact, nonfocal awake Extremity- no pedal edema able to move all 4 extremities, well healing right lower extremity wound Psychiatry - patient is not confused or agitated cooperated during physical examination Coagulation Studies Laboratory Tests Test 04/09/25 16:44 Prothrombin Time 11.0 SECONDS (9.0-12.0) INR International Normalized Ratio 1.1 INR Activated Partial Thromboplast Time 23 SECONDS (22-32) Coagulation Comments Problem\Assessment\Plan Patient is a 44-year-old female with PMH of diabetes mellitus, hypertension and osteomyelitis s/p surgical amputation of 5th right toe presented to ED abdominal pain, nausea, and vomiting. # upper abdomen pain nausea and vomiting- CT abdomen and pelvis done results reviewed. Patient is on IV fluids IV antibiotics and diet advanced to full liquid. # uncontrolled hypertension - patient is started on antihypertensive medication. # On IV fluids for tachycardia ordered atenolol also. # Order hypo and hyperglycemic protocol for type 2 diabetes. # Patient is strongly advised to stop cannabis and risks explained. I suspect Patient's nausea vomiting and abdominal pain likely due due to cannabis use. # Code status discussed with the patient patient wishes full code We will continue to monitor patient's labs and vitals closely . Needs physical therapy evaluation before discharge .home medication reconciliation updated in electronic records. Further management depending on response to treatment and I will continue to follow patient in a.m. Date of Service: Apr 10, 2025 Billing Provider: ADIN STEWART MD Common Visit Codes: [id number] INP/OBS CARE(HIGH) ADIN STEWART MD Apr 10, 2025 17:41
[2025-04-10] MEDS: levoFLOXACIN-Levaquin 500mg/D5 100 ML IV SCH (17:55)
[2025-04-10] MEDS ORDERED: divalproex sod 125mg tablet.DR PO SCH (21:00)
[2025-04-10] MEDS: labetalol 20mg/4ml (5mg/ml) syringe IV ONE (21:08)
[2025-04-11] VITALS (9 sets, daily range): BP systolic 148–196; BP diastolic 62–93; PULSE 75–91; RESP 12–19; TEMP 97.6–98.6; O2SAT 96–98
[2025-04-11] MEDS: ondansetron 4mg rapidly disintigrating tab PO PRN (07:09)
[2025-04-11 10:02] LABS: CREATININE 0.58 MG/DL (0.40-0.90); TOTAL CARBON DIOXIDE 20.8 MMOL/L (24-32); eCRCL 122 ML/MIN; eGFR > 90 ML/MIN
[2025-04-11] MEDS ORDERED: LANTUS SQ (10:40)
[2025-04-11 11:14] LABS: MEAN PLATELET VOLUME 7.9 FL (7.4-10.4); RED CELL DISTRIBUTION WIDTH 14.6 % (11.5-14.5)
[2025-04-11] MEDS ORDERED: SODI100035 PO (11:50)
[2025-04-11] MEDS ORDERED: LEVO-65 PO (11:52)
[2025-04-11] MEDS ORDERED: HYDR50TA46 PO (20:12)
--- NOTE | 2025-04-11 20:15 | DISCHARGE SUMMARY ---
Discharge Summary Providers to CC ~ Discharge Summary Admission Diagnosis: ABDOMINAL PAIN, VOMITING , DM Hospital Course DATE OF ADMISSION: April 09, 2025 DATE OF DISCHARGE: April 11, 2025 CBC testing done on April 05, 2025 WBC 11.8 hemoglobin 12.8 hematocrit 37 point nine sed rate seven. Platelet count 221. Serum chemistry done on April 11, 2025 sodium 127 potassium 4.3 creatinine 0.58 GFR greater than 90 hemoglobin A1c 8.4. Alkaline phosphatase 155 rest of the liver enzymes unremarkable lipase 47 proBNP 796. Triglyceride 150 rest of the lipid panel normal. Blood culture showed no growth after two days CT ABDOMEN PELVISIMPRESSION: Left perinephric edema may be seen with pyelonephritis. No hydronephrosis Punctate nonobstructing left nephrolithiasis Trace bilateral pleural effusions and pulmonary edema. Cholecystectomy Discharge Diagnosis\Comment: upper abdomen pain nausea and vomiting, cannabis use, type 2 diabetes uncontrolled , hypertension and osteomyelitis s/p surgical amputation of 5th right toe Operations\Procedures: None Consultants: None Complications: None Condition on DC: Stable New Medications: Levofloxacin (Levofloxacin) 500 Mg Tablet 500 MG PO DAILY for 5 Days, #5 TAB Sodium Chloride (Sodium Chloride) 1,000 Mg Tablet.clara 1 TAB PO Q12H for 10 Days, #20 TAB 0 Refills Changed Medications: Insulin Glargine,Hum.rec.anlog* (Lantus*) 100 Unit/1 Ml Vial 25 UNIT SQ HS for 30 Days, ML (Changed from: 14 UNIT; Removed Quantity; 90) Continued Medications: Amlodipine Besylate (Amlodipine Besylate) 5 Mg Tablet 2 TAB PO DAILY for 30 Days, #60 TAB 0 Refills Asenapine Maleate (Saphris) 5 Mg Tab.subl 1 TAB SL TID, TAB Atorvastatin Calcium* (Lipitor*) 40 Mg Tablet 1 TAB PO DAILY for 30 Days, #30 TAB Bupropion HCl (Wellbutrin Sr) 150 Mg Tablet.er 1 TAB PO DAILY for 30 Days, #60 TAB 0 Refills Divalproex Sodium (Depakote) 125 Mg Tablet.dr 1 TAB PO HS for 30 Days, #60 TAB 0 Refills Divalproex Sodium (Depakote) 250 Mg Tablet.dr 1 TAB PO BID for 30 Days, #60 TAB 0 Refills Ferrous Sulfate (Ferrous Sulfate) 325 Mg (65 Mg Iron) Tablet 1 TAB PO DAILY for 90 Days, #90 TAB 0 Refills Take 1 tablet by mouth on an empty stomach once daily Gabapentin (Gabapentin) 600 Mg Tablet 1 TAB PO Q8H for 30 Days, #90 TAB 0 Refills Hydrocodone Bit/Acetaminophen 5/325 MG ([place] 5/325 MG) 5 Mg/325 Mg Tablet 1-2 TAB PO Q6H PRN for pain, TAB Hydroxyzine Pamoate (Hydroxyzine Pamoate) 50 Mg Capsule 1 CAP PO Q6H PRN for PRN for 30 Days, #90 CAP 0 Refills Losartan Potassium (Losartan Potassium) 50 Mg Tablet 2 TAB PO DAILY for 30 Days, #60 TAB Omeprazole Magnesium (Prilosec Otc) 20 Mg Tablet.dr 1 TAB PO BID, TAB Tizanidine Hcl (Zanaflex) 4 Mg Capsule 1 CAP PO Q8H PRN for muscle spasms, CAP Trazodone Hcl (Trazodone Hcl) 150 Mg Tablet 1 TAB PO HS for 30 Days, #30 TAB 0 Refills Discharge Summary: Patient is a 44-year-old female with PMH of diabetes mellitus, hypertension and osteomyelitis s/p surgical amputation of 5th right toe presented to ED abdominal pain, nausea, and vomiting. Hospitalization patient was treated for # upper abdomen pain nausea and vomiting- CT abdomen and pelvis done results reviewed. Patient is on IV fluids IV antibiotics and diet advanced to full liquid. Was discharged on p.o. antibiotics at home # uncontrolled hypertension - patient is started on antihypertensive medication. Patient is taking losartan 100 mg once daily and amlodipine 10 mg at home # On IV fluids for tachycardia ordered atenolol also. # Order hypo and hyperglycemic protocol for type 2 diabetes. # Patient is strongly advised to stop cannabis and risks explained. I suspect Patient's nausea vomiting and abdominal pain likely due due to cannabis use. # Code status discussed with the patient patient wishes full code she has been afebrile and getting discharged home in stable condition. Patient is seen and examined on the day of discharge. All labs, diagnostic workup and discharge plan discussed with patient and family members in detail before her discharge. All questions and queries answered to the best of my professional medical knowledge. I heard patient's concerns and address appropriately. Patient is able to ambulate. public housing manager Emma involved in patient's discharge plan. Discharge instructions provided to the patientPatient needs follow-up with primary care physician in one week, repeat CBC sed rate procalcitonin BMP in 3-5 days with PCP. Activity as tolerated. Please read the side effects of all your medication. Patient's diabetes is uncontrolled further management as per PCP including adjustment of insulin therapy.. Patient is strongly advised to stop cannabis use which can cause cyclic nausea vomiting and abdominal pain.patient needs to see pain specialist in outpatient setting . Continue to monitor blood pressure in outpatient setting with primary care physician. General-patient not in any acute distress, awake chronically ill-appearing, obese. HEENT-atraumatic normocephalic, neck supple without elevated JVD, no thyromegaly or carotid bruit. No lymphadenopathy bilaterally. Eyes-no icterus or pallor seen in eyes Chest-clear to auscultation bilaterally, breathing nonlabored no tachypnea, no wheezing, no crepitation, no crackles. Heart-S1-S2 normal, regular heart rate no murmur Abdomen bowel sounds positive on auscultation, soft nondistended, subjective tenderness present over upper abdomen on palpation no guarding, no rigidity Skin no active skin rash Neurology-grossly intact, nonfocal awake Extremity- no pedal edema able to move all 4 extremities, well healing right lower extremity wound Psychiatry - patient is not confused or agitated cooperated during physical examination *Problems/Diagnosis: (1) Intractable vomiting Status: Acute Total Time Spent on D/C: > 30 Minutes Date of Service: Apr 11, 2025 Billing Provider: ADIN STEWART MD Common Visit Codes: [id number] DISCH DAY >30min ADIN STEWART MD Apr 11, 2025 20:09
== END 2025-04-11 15:51 | disposition home or self-care (01) | DRG 251 ==
LOC: ER 11:38 → ED HOLD 16:25 → PCU 3S 23:07
PROVIDERS: ADMIT Internal Medicine; ATTEND Internal Medicine
DX: R10.84 Generalized abdominal pain (principal); I11.0 Hypertensive heart disease with heart failure; I50.9 Heart failure, unspecified; E11.65 Type 2 diabetes mellitus with hyperglycemia; J45.909 Unspecified asthma, uncomplicated; F32.A Depression, unspecified; G40.909 Epilepsy, unspecified, not intractable, without status epilepticus; R11.2 Nausea with vomiting, unspecified; E11.69 Type 2 diabetes mellitus with other specified complication; R00.0 Tachycardia, unspecified; F12.90 Cannabis use, unspecified, uncomplicated; K21.9 Gastro-esophageal reflux disease without esophagitis; Z81.8 Family history of other mental and behavioral disorders; Q79.60 Ehlers-Danlos syndrome, unspecified; Z79.4 Long term (current) use of insulin; Z82.49 Family history of ischemic heart disease and other diseases of the circulatory system; Z87.442 Personal history of urinary calculi; Z87.891 Personal history of nicotine dependence; Z88.0 Allergy status to penicillin
CPT/HCPCS: 36415; 74176; 80053; 80061; 81001; 81025; 82948; 83036; 83605; 83690; 83735; 83880; 84100; 84145; 84484; 85025; 85610; 85651; 85730; 87040; 87081; 93005; 96365; 96375; 96376; 99285; A4615; A6258; A6446; A6449; G0378; J1200; J1644; J1815; J1956; J2270; J2405; J2470; J2765; J3360; J3490; J7030

== ENCOUNTER 2025-04-17 15:22 | Inpatient (IN) | payer MEDICAID ==
[~2025-04-17] VITALS: Ht 172.7 cm; Wt 103.2 kg
[~2025-04-17 15:22] MED LIST changes: +HYDR50TA46 PO; +LEVO-65 PO; +SODI100035 PO
[2025-04-17] MEDS: normal saline 1000ml 1,000 ML IV ONE (15:52)
[2025-04-17 15:56] LABS: MEAN PLATELET VOLUME 7.9 FL (7.4-10.4); RED CELL DISTRIBUTION WIDTH 14.8 % (11.5-14.5)
--- NOTE | 2025-04-17 16:02 | Physician Documentation ---
History of Present Illness ~ Chief Complaint: Abdominal Pain w/vomiting Stated Complaint: VOMITING Time Seen by MD: 15:46 Primary Medical Doctor: Nilesh Shields Mode of Arrival: EMS HPI 44-year-old female who presents with abdominal pain and uncontrollable vomiting History is somewhat limited from the patient due to her clinical condition, she is actively vomiting. She does report diffuse abdominal pain and nausea. She has not been able to keep down any food or fluids or medications. She was recently admitted to the hospital for similar and tells me that this all feels the same. No new or different symptoms. The abdominal pain is diffuse. Per chart review, the patient was seen recently admitted to the hospital for similar symptoms. She also has high blood pressure. Medication Reconciliation Allergies: Coded Allergies: fentanyl (Unverified Allergy, Mild, PANIC ATTACK, 04/17/25) prazosin (Unverified Allergy, Mild, ITCHING, 04/17/25) Scheduled Amlodipine Besylate (Amlodipine Besylate), 2 TAB PO DAILY Asenapine Maleate (Saphris), 1 TAB SL TID, (Reported) Atorvastatin Calcium* (Lipitor*), 1 TAB PO DAILY, (Reported) Bupropion HCl (Wellbutrin Sr), 1 TAB PO DAILY, (Reported) Divalproex Sodium (Depakote), 1 TAB PO HS, (Reported) Divalproex Sodium (Depakote), 1 TAB PO BID, (Reported) Ferrous Sulfate (Ferrous Sulfate), 1 TAB PO DAILY Gabapentin (Gabapentin), 1 TAB PO Q8H, (Reported) Hydralazine HCl (Hydralazine HCl), 0.5 TAB PO Q12H Insulin Glargine,Hum.rec.anlog* (Lantus*), 25 UNIT SQ HS Losartan Potassium (Losartan Potassium), 2 TAB PO DAILY Omeprazole Magnesium (Prilosec Otc), 1 TAB PO BID, (Reported) Sodium Chloride (Sodium Chloride), 1 TAB PO Q12H Trazodone Hcl (Trazodone Hcl), 1 TAB PO HS, (Reported) Scheduled PRN Hydrocodone Bit/Acetaminophen 5/325 MG ([place] 5/325 MG), 1-2 TAB PO Q6H PRN for pain, (Reported) Hydroxyzine Pamoate (Hydroxyzine Pamoate), 1 CAP PO Q6H PRN for PRN, (Reported) Tizanidine Hcl (Zanaflex), 1 CAP PO Q8H PRN for muscle spasms, (Reported) Discontinued Medications Levofloxacin (Levofloxacin), 500 MG PO DAILY Discontinued Reason: Auto Discontinued Past Medical History Past Medical History: Seizures, Congestive Heart Failure, Hypertension, Asthma, GERD, Kidney Stones, Diabetes, *MUSCULOSKELETAL*, Chronic Back Pain, *INFECTIOUS DZ*, Anxiety, Bipolar, Depression, Panic Disorder Past Surgical History: orthopedic surgeries, tubal ligation Patient History: FH: depression FATHER MOTHER (Heroin use disorder) FH: heart disease Paternal Grandfather Alcohol Use: Sober Drug Use: marijuana Lives with: Spouse Occupation: unemployed Review of Systems Gastrointestinal: Reports: abdominal pain, nausea, vomiting Unable to obtain complete ROS: medical urgency Physical Exam Vital Signs: Temperature: 98.4, Heart Rate: 122, Respiratory Rate: 16, Pulse Oximetry: 100, Weight: 103.180 Oxygen Flow Rate: 0 Physical Exam General: This is an uncomfortable appearing middle-aged woman who is actively vomiting HEENT: Atraumatic, oropharynx is dry with cracked lips Heart: Tachycardic, appears regular Lungs: normal work of breathing, normal oxygen saturation on room air Abdomen: Soft, nondistended, generalized tenderness, without rebound or guarding Neuro: Alert and oriented Psychiatric: Anxious and appears in distress Progress Results/Orders Results/Orders Orders - JAYA RIVERA MD Urinalysis, Cult If Indicated (04/17/25 15:36) Hcg, Ur Ql (04/17/25 15:36) Drug Screen, Urine (04/17/25 16:58) Completed Orders - JAYA RIVERA MD Cbc/Diff (04/17/25 15:36) BMP (04/17/25 15:36) Lipase (04/17/25 15:36) CMP (04/17/25 15:36) Normal Saline 1000ml (0.9% Sodium Chlori (04/17/25 15:50) Prochlorperazine Inj (Compazine Inj) (04/17/25 15:50) Diphenhydramine Inj (Benadryl Inj.) (04/17/25 15:50) Pantoprazole 40mg Iv (Protonix 40mg Iv) (04/17/25 15:50) Morphine 4mg/Ml Inj. (Morphine Inj.) (04/17/25 16:05) MG (04/17/25 15:42) Medications Received in ER Medications (Trade) Dose Ordered Sig/Brent Route PRN Reason Start Time Stop Time Status Last Admin Dose Admin Sodium Chloride 1,000 ml @ 1,000 mls/hr ONCE ONCE IV 04/17/25 15:50 04/17/25 16:49 DC 04/17/25 15:52 1,000 MLS/HR (Compazine inj) 10 mg ONCE ONCE IV 04/17/25 15:50 04/17/25 15:51 DC 04/17/25 16:22 10 MG (Benadryl inj.) 50 mg ONCE ONCE IV 04/17/25 15:50 04/17/25 15:51 DC 04/17/25 15:52 50 MG (Protonix 40mg IV) 40 mg ONCE ONCE IV 04/17/25 15:50 04/17/25 15:51 DC 04/17/25 16:22 40 MG (morphine inj.) 4 mg ONCE ONCE IV 04/17/25 16:05 04/17/25 16:06 DC 04/17/25 16:28 4 MG Vital Signs 04/17/25 04/17/25 04/17/25 15:25 15:37 16:28 Temp 98.4 Pulse 122 Resp 28 16 16 B/P (MAP) Pulse Ox 100 O2 Flow Rate 0 Laboratory Tests Test 04/17/25 15:42 04/17/25 15:47 White Blood Count 11.8 H Red Blood Count 5.59 Hemoglobin 15.0 Hematocrit 45.8 H Mean Corpuscular Volume 81.9 Mean Corpuscular Hemoglobin 26.8 L Mean Corpuscular Hemoglobin Concent 32.7 L Red Cell Distribution Width 14.8 H Platelet Count 383 Mean Platelet Volume 7.9 Neutrophils (%) (Auto) 67.7 Lymphocytes (%) (Auto) 23.5 Monocytes (%) (Auto) 6.4 Eosinophils (%) (Auto) 1.6 Basophils (%) (Auto) 0.8 Neutrophils # (Auto) 8.0 H Lymphocytes # (Auto) 2.8 Monocytes # (Auto) 0.8 Eosinophils # (Auto) 0.2 Basophils # (Auto) 0.1 CBC Comment Sodium Level 135 Potassium Level 3.7 Chloride Level 95 L Carbon Dioxide Level 27.9 Anion Gap 12 Blood Urea Nitrogen 14 Creatinine 1.04 H Estimated GFR/1.73 m2 57 BUN/Creatinine Ratio 13.5 Glucose Level 311 H Calcium Level 9.5 Magnesium Level 1.9 Total Bilirubin 0.5 Aspartate Amino Transf (AST/SGOT) 29 Alanine Aminotransferase (ALT/SGPT) 51 Alkaline Phosphatase 122 H Total Protein 8.1 Albumin 4.1 Globulin 4.0 Albumin/Globulin Ratio 1.0 L Lipase 54 Chemistry Comments Glucometer 322 H Medical Decision Making Additional information obtaine: old records Findings Reviewed previous ER visit and admission Diff Dx GI Bleed:Consideration: Include: Gastritis Diff Dx Pain:Considerations: Include: Constipation Diff Dx N/V/D:Considerations: Include: Electrolyte imbalance, Food poisoning Diff Dx Rectal:Considerations: Unlikely: Rectal prolapse Additional Comments The patient presents with diffuse abdominal pain with uncontrollable vomiting. Here in the ED she continues to vomit. She had a recent admission for similar symptoms. An IV was established and she was given multiple medications including pain and nausea medicine and IV fluids. Labs returned with no dangerous findings including no POPPY or electrolyte derangement. Departure Impression: Primary Impression: Generalized abdominal pain Additional Impressions: Nausea and vomiting Dehydration Hypertension Referrals: NO PRIMARY CARE PROVIDER (PCP) Signature Scribe Signature: na Attestation: JAYA Neil MD Apr 17, 2025 16:02
[2025-04-17 16:04] LABS: CREATININE 1.04 MG/DL (0.40-0.90); TOTAL CARBON DIOXIDE 27.9 MMOL/L (24-32); eCRCL 68 ML/MIN; eGFR 57 ML/MIN
[2025-04-17] MEDS: morphine 4 MG/ML inj SYRINge IV ONE (16:28)
[2025-04-17] MEDS: hydrALAZINE 20mg/ml inj. IV ONE (18:02)
[2025-04-17] MEDS: haloperidol lactate 5mg/ml inj IM ONE (18:06)
--- NOTE | 2025-04-17 18:06 | ELECTROCARDIOGRAPH REPORT ---
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 Roscoe Sarkar Measurements Intervals [place] Rate: 114 P: 19 OK: 160 QRS: -47 QRSD: 87 T: 67 QT: 333 QTc: 459 Interpretive Statements Sinus tachycardia Probable left atrial enlargement Inferior infarct, acute (RCA) Anteroseptal infarct, old Probable RV involvement, suggest recording right precordial leads Electronically Signed On 04-18-2025 6:59:[address] Roscoe Sarkar Please click the below link to view image of tracing.
[2025-04-17] MEDS ORDERED: magnesium hydroxide 30ml (MOM) UD suspension PO PRN (20:25)
[2025-04-17] MEDS ORDERED: magnesium sulf-water 2g/50mL 50 ML IV PRN (20:25)
[2025-04-17] MEDS ORDERED: magnesium sulf-water 4G/100mL 100 ML IV PRN (20:25)
[2025-04-17] MEDS ORDERED: mag hydrox/Alum hydrox/simeth 30ml oral suspension PO PRN (20:25)
[2025-04-17] MEDS ORDERED: magnesium Cl slow-release 64mg tablet PO PRN (20:25)
[2025-04-17] MEDS ORDERED: HYDROcodone/acetaminophen 5mg/325mg tablet PO PRN (20:25)
[2025-04-17] MEDS ORDERED: potassium Cl 40MEQ/1/2NS 520ml 520 ML IV PRN (20:25)
[2025-04-17] MEDS ORDERED: potassium Cl 20 mEq SR tablet PO PRN ×2 (20:25)
[2025-04-17 20:42] LABS: LEUKOCYTE ESTERASE ,URINE NEGATIVE (Neg); NITRITES, URINE NEGATIVE (Neg); OCCULT BLOOD,URINE TRACE-INTACT (Neg)
[2025-04-17 20:43] LABS: URINE HCG NEGATIVE (NEG)
[2025-04-17] MEDS ORDERED: dextrose 50%-water 50ml dispensing syringe IV PRN ×2 (20:45)
[2025-04-17] MEDS ORDERED: glucagon, human recombinant 1mg kit SUBCUT PRN (20:45)
[2025-04-17] MEDS ORDERED: DEXTROSE 15 GM of carb/4 tabs (each vial/BOTTLE has 4 tablets) PO PRN ×2 (20:45)
--- NOTE | 2025-04-17 20:46 | HISTORY AND PHYSICAL-Residence ---
History & Physical Providers to CC Resident Creating Document: COLETTE NAVARRO, RES ~ History of Present Illness Primary Medical Doctor: Nilesh Shields Reason for Admit\Complaint: abd. pain, vomiting History of Present Illness This is a 44 year old female Patient with PMH of Diabetes Mellitus, Hypertension, Sheree-Danlos Syndrome, Bipolar disorder, seizure disorder and right foot osteomyelitis s/p surgery comes in for evaluation of abdominal pain, nausea, and vomiting. Review of records show that patient was recently admitted on 04/09/25 for similar complaints. Patient says that since the day of her discharge she has been continuously vomiting and nothing improved since then. She is vomiting nonstop throughout the day, she also complains of left flank pain. She is unable to keep down medications, solids, or liquids. She denies any blood in the stool, she denies any dysuria or fever. Patient denies any complaints of diarrhea, recent travel, sick contacts. CT abdomen that was done on 04/09/2025 showed nonobstructing left nephrolithiasis measuring 1-2 mm. There is mild left perinephric edema. No hydronephrosis. No ureteral stones. Right kidney is unremarkable. Left perinephric edema may be seen with pyelonephritis. Allergies: Coded Allergies: fentanyl (Unverified Allergy, Mild, PANIC ATTACK, 04/17/25) prazosin (Unverified Allergy, Mild, ITCHING, 04/17/25) Home Medications Home Medications Active Hydralazine HCl 50 Mg Tablet 0.5 Tab PO Q12H 30 Days Sodium Chloride 1,000 Mg Tablet.clara 1 Tab PO Q12H 10 Days Lantus* (Insulin Glargine) 100 Unit/1 Ml Vial 25 Unit SQ HS 30 Days Amlodipine Besylate 5 Mg Tablet 2 Tab PO DAILY 30 Days Ferrous Sulfate 325 Mg (65 Mg Iron) Tablet 1 Tab PO DAILY 90 Days Take 1 tablet by mouth on an empty stomach once daily Losartan Potassium 50 Mg Tablet 2 Tab PO DAILY 30 Days Reported Trazodone Hcl 150 Mg Tablet 1 Tab PO HS 30 Days Hydroxyzine Pamoate 50 Mg Capsule 1 Cap PO Q6H PRN 30 Days Gabapentin 600 Mg Tablet 1 Tab PO Q8H 30 Days Depakote (Divalproex Sodium) 250 Mg Tablet.dr 1 Tab PO BID 30 Days Depakote (Divalproex Sodium) 125 Mg Tablet.dr 1 Tab PO HS 30 Days Wellbutrin Sr (Bupropion HCl) 150 Mg Tablet.er 1 Tab PO DAILY 30 Days Lipitor* (Atorvastatin Calcium) 40 Mg Tablet 1 Tab PO DAILY 30 Days Alna 5/325 MG (Acetaminophen/Hydrocodone Bitart) 5 Mg/325 Mg Tablet 1-2 Tab PO Q6H PRN Prilosec Otc (Omeprazole Magnesium) 20 Mg Tablet.dr 1 Tab PO BID Zanaflex (Tizanidine HCl) 4 Mg Capsule 1 Cap PO Q8H PRN Saphris (Asenapine Maleate) 5 Mg Tab.subl 1 Tab SL TID Past Medical History Past Medical History Diabetes Mellitus, Hypertension, Sheree-Danlos Syndrome, Bipolar disorder, seizure disorder and right foot osteomyelitis s/p surgery Past Surgical History Surgical History Comment Rigt foot surgery (5th metatarsal amputation) Patient had two spinal surgeries in August and December 2024. Family History Family History: FH: depression FATHER MOTHER (Heroin use disorder) FH: heart disease Paternal Grandfather Past Social History Social History Comment Patient smokes Cig 1 PPD since 10 years old Use marijuana daily since 7 years old. Smoking: Cigarettes Alcohol Use: Sober Drug Use: Marijuana Lives with: Spouse Occupation: unemployed ROS All Other Systems: Reviewed and Negative Gastrointestinal: Reports: abdominal pain, nausea, vomiting Unable to obtain: medical urgency Exam Vitals: Vital Signs Date Time Temp Pulse Resp B/P (MAP) Pulse Ox O2 Delivery O2 Flow Rate FiO2 04/17/25 18:02 116 04/17/25 18:02 20 04/17/25 17:52 191/95 (127) 99 2.0 04/17/25 15:25 98.4 General: General-patient in acute distress due to abdominal pain. HEENT-atraumatic normocephalic, neck supple without elevated JVD, no thyromegaly or carotid bruit. No lymphadenopathy bilaterally. Eyes-no icterus or pallor seen in eyes Chest-clear to auscultation bilaterally, breathing nonlabored no tachypnea, no wheezing, no crepitation, no crackles. Heart-S1-S2 normal, regular heart rate no murmur Abdomen bowel sounds positive on auscultation, soft nondistended, subjective tenderness present all over the abdomen, no rigidity, guarding, rebound tenderness Skin no active skin rash Neurology-grossly intact, nonfocal awake Extremity- no pedal edema able to move all 4 extremities, right lower extremity covered with bandage Psychiatry - patient is not confused or agitated cooperated during physical examination Diagnostic Data Last Recorded Lab Results: 04/19/25 0604/19/25 06 Advance Care Planning Advanced Care plannin - 30 Minutes (Full code) Additional Plan Acute abdominal pain Nausea, vomiting Likely due to cannabinoid use or possible nephrolithiasis, pyelonephritis Patient on metoclopramide and Zofran p.r.n. Possible nephrolithiasis/pyelonephritis- Left flank pain Patient meeting SIRS criteria Patient currently recording no fevers Patient's WBC count slightly elevated 11.8 Procal normal Lactic acid slightly elevated 2.2 Patient started on fluids NS 100 cc/hour. Patient given tamsulosin 0.4 once Patient started on ceftriaxone 1 g IV daily for possible pyelonephritis Uncontrolled type 2 diabetes mellitus- Glucose on presentation 311 HbA1c on 04/09/2025- 8.4 Patient on hyperglycemia/hypoglycemia protocol Lantus 10 units, medium dose protocol POPPY Likely prerenal Creatinine 1.04 Baseline creatinine 0.58 on 04/11/2025 Patient on fluids NS 100 cc . Hypertension- Patient's blood pressure 191/95 Patient started on amlodipine 5 mg. Start home medications once med rec is done. Substance abuse- U tox positive for opiates, fentanyl, benzodiazepines, cannabinoids. Substance use navigator consulted. Code status: Full code DVT profile: Heparin Diet: Clear liquid Colette Navarro PGY-1 Date of Service: Apr 17, 2025 Billing Provider: AMEYA FELIZ MD Addendum Attestation I agree with the residents assessment and plan as below: 44 year old female with dm htn and osteomyelitis admitted with abdominal pain, nausea and vomiting. Plan: urology consult ceftriaxone for possible uti mIVF tamsulosin restart lantus and SSI CCT 53 min using HIPPA compliant A/V technology COLETTE NAVARRO, RES Apr 17, 2025 20:46 AMEYA FELIZ MD Apr 19, 2025 22:08
[2025-04-17 20:47] LABS: UA COLLECTION TYPE CLN CATCH MIDSTREAM
[2025-04-17 20:48] LABS: AMORPHOUS PHOSPHATES 2+; SQUAMOUS EPITHELIAL CELL,UR MANY /LPF (FEW)
[2025-04-17 20:55] LABS: URINE AMPHETAMINE SCREEN NEGATIVE (Neg); URINE BARBITUATE SCREEN NEGATIVE (Neg); URINE BENZODIAZEPINES SCREEN POSITIVE (Neg); URINE CANNABINOID SCREEN POSITIVE (Neg); URINE COCAINE SCREEN NEGATIVE (Neg); URINE METHADONE SCREEN NEGATIVE (Neg); URINE OPIATE SCREEN POSITIVE (Neg); URINE PHENCYCLIDINE SCREEN NEGATIVE (Neg)
[2025-04-17] MEDS: normal saline 1000ml 1,000 ML IV SCH (21:56)
[2025-04-17] MEDS: insulin glargine (Lantus) pen - multi-dose SQ SCH (21:58)
[2025-04-17] MEDS: INSULIN LISPRO 100 UNIT/ML INSULN.PEN MULTI-DOSE SQ SCH (22:00)
[2025-04-17] MEDS: ondansetron/PF 4mg/2ml inj IV PRN (22:41)
[2025-04-18] VITALS (8 sets, daily range): BP systolic 148–187; BP diastolic 60–93; PULSE 67–105; RESP 12–21; TEMP 97.7–98.6; O2SAT 94–98
[2025-04-18 07:23] LABS: MEAN PLATELET VOLUME 7.5 FL (7.4-10.4); RED CELL DISTRIBUTION WIDTH 14.4 % (11.5-14.5)
[2025-04-18] MEDS: HYDROcodone/acetaminophen 10/325mg tab PO PRN (07:58)
[2025-04-18] MEDS: docusate sod 100mg capsule PO SCH (07:58)
[2025-04-18] MEDS: heparin, porcine 5000 units/ml vial SQ SCH (07:59)
[2025-04-18] MEDS: K and/or MAG REPLACEMENT MC SCH (08:00)
[2025-04-18 08:12] LABS: CREATININE 0.73 MG/DL (0.40-0.90); TOTAL CARBON DIOXIDE 27.2 MMOL/L (24-32); eCRCL 97 ML/MIN; eGFR 86 ML/MIN
[2025-04-18] MEDS: CefTRIAXone/D5W-Rocephin 1gm 50 ML IV SCH (08:18)
[2025-04-18] MEDS: INSULIN LISPRO 100 UNIT/ML INSULN.PEN MULTI-DOSE SQ ONE (10:37)
--- NOTE | 2025-04-18 12:56 | RADIOLOGY REPORT ---
Indication: UNSPECIFIED ABDOMEN PAIN Technique: CT axial images of the abdomen and pelvis are obtained with intravenous contrast. Coronal and sagittal reformats were obtained. Radiation Dose Information: CTDI volume is 34 mGy. Dose-length product is 2055 mGy*cm Comparison: CT CT ABDOMEN PELVIS on DOS: 04/09/25 FINDINGS: Lung bases demonstrate 5 mm right middle lobe subpleural nodule. 4 mm left lower lobe solid nodule. Adrenal glands, spleen unremarkable. Pancreas unremarkable. Cholecystectomy. No enhancing hepatic lesion. Kidneys demonstrate no hydronephrosis. There is mild left perinephric edema / stranding. Nonobstructing left renal calculus measuring 3 mm. Stomach is partially distended. Small bowel loops are normal in caliber. Moderate volume stool in the colon. Normal appendix. Abdominal aortic atherosclerotic disease. Bladder is partially distended. No free pelvic fluid. No inguinal lymphadenopathy. [id number] bilateral sacroiliac degenerative joint disease. Moderate to advanced lumbar degenerative disc disease most pronounced at L4-5. Endplate sclerotic changes L4-5. [id number] thoracic degenerative disc disease. IMPRESSION: Mild left perinephric edema / stranding. Correlate for pyelonephritis /urinary tract infection. Overall the perinephric edema/ stranding is decreased from the previous examination. Nonobstructing left renal calculus measuring 3 mm. Pulmonary nodules up to 5 mm. Recommend follow-up per Fleischner society criteria. Endplate sclerotic changes at L4-5 which may represent sequela of degenerative disease. If there is concern for infection / osteomyelitis recommend obtaining MRI lumbar spine with and without contrast. Other findings as described.
--- NOTE | 2025-04-18 18:34 | PROGRESS NOTE ---
Daily Progress Note Providers to CC ~ Antibiotic Timeout Antibiotic Ordered?: Yes Subjective Patient was seen in presence of her today. Patient is concerned about pain over left side of abdomen. She mentioned in ER " that since the day of her discharge she has been continuously vomiting and nothing improved since then. She is vomiting nonstop throughout the day, she also complains of left flank pain. She is unable to keep down medications, solids, or liquids. " Objective Vital Signs Date Time Temp Pulse Resp B/P (MAP) Pulse Ox O2 Delivery O2 Flow Rate FiO2 04/18/25 17:41 94 04/18/25 15:01 12 04/18/25 11:00 98.1 96 Room Air 04/18/25 08:00 0.0 Result Diagram: 04/18/25 0712 04/18/25 0712 General-patient not in any acute distress, awake chronically ill-appearing, obese. HEENT-atraumatic normocephalic, neck supple without elevated JVD, no thyromegaly or carotid bruit. No lymphadenopathy bilaterally. Eyes-no icterus or pallor seen in eyes Chest-clear to auscultation bilaterally, breathing nonlabored no tachypnea, no wheezing, no crepitation, no crackles. Heart-S1-S2 normal, regular heart rate no murmur Abdomen bowel sounds positive on auscultation, soft nondistended, subjective tenderness present over upper abdomen on palpation no guarding, no rigidity Skin no active skin rash Neurology-grossly intact, nonfocal awake Extremity- no pedal edema able to move all 4 extremities, well healing right lower extremity wound Psychiatry - patient is not confused or agitated cooperated during physical examination Problem\\Assessment\\Plan Acute abdominal pain Nausea, vomiting Likely due to cannabinoid use or possible nephrolithiasis, pyelonephritis Patient on metoclopramide and Zofran p.r.n. CT abdomen and pelvis ordered and results reviewed Possible nephrolithiasis/pyelonephritis- Left flank pain Patient meeting SIRS criteria Patient currently recording no fevers Patient's WBC count slightly elevated 11.8 Procal normal Lactic acid slightly elevated 2.2- back to normal Patient started on fluids NS 100 cc/hour. on tamsulosin 0.4mg po HS Patient started on ceftriaxone 1 g IV daily for possible pyelonephritis Urine culture and sensitivity testing ordered Left perinephric edema may be seen with pyelonephritis. No hydronephrosis We will discuss CT findings with Urology specialist in a.m. Uncontrolled type 2 diabetes mellitus- Glucose on presentation 311 HbA1c on 04/09/2025- 8.4 Patient on hyperglycemia/hypoglycemia protocol Lantus 10 units, medium dose protocol POPPY Likely prerenal Creatinine 1.04 Baseline creatinine 0.58 on 04/11/2025 Patient on fluids NS 100 cc . Hypertension- Patient's blood pressure 191/95 Patient started on amlodipine 5 mg. home medication med rec is done. Substance abuse- U tox positive for opiates, fentanyl, benzodiazepines, cannabinoids. Substance use navigator consulted. Code status: Full code DVT profile: Heparin Diet: Carb controlled diet Patient's current condition is guarded we will continue to follow patient in AM . Date of Service: Apr 18, 2025 Billing Provider: ADIN STEWART MD Common Visit Codes: [id number] INP/OBS CARE(HIGH) ADIN STEWART MD Apr 18, 2025 18:34
[2025-04-18] MEDS: insulin glargine (Lantus) pen - multi-dose SQ SCH (21:37)
[2025-04-18] MEDS: divalproex 250mg tablet, delayed-release PO SCH (21:42)
[2025-04-18] MEDS: asenapine 5mg TAB.SUBL SL SCH (21:42)
[2025-04-18] MEDS: divalproex sod 125mg tablet.DR PO SCH (21:42)
[2025-04-18] MEDS: pantoprazole 40mg Tablet.DR PO SCH (21:49)
[2025-04-19 02:00] VITALS: BP 151/80; PULSE 93; RESP 16; TEMP 97.9; O2SAT 96
[2025-04-19 06:22] LABS: MEAN PLATELET VOLUME 7.5 FL (7.4-10.4); RED CELL DISTRIBUTION WIDTH 13.9 % (11.5-14.5)
[2025-04-19 06:37] LABS: CREATININE 0.66 MG/DL (0.40-0.90); TOTAL CARBON DIOXIDE 27.1 MMOL/L (24-32); eCRCL 107 ML/MIN; eGFR > 90 ML/MIN
[2025-04-19 07:00] VITALS: BP 149/83; PULSE 90; RESP 12; TEMP 98.5; O2SAT 96
[2025-04-19] MEDS: buPROPion SR 150mg tablet PO SCH (08:45)
[2025-04-19 08:46] VITALS: BP_SYST 149; PULSE 90
[2025-04-19] MEDS: metoclopramide 5 mg/ml inj IV PRN (09:44)
[2025-04-19] MEDS ORDERED: CIPR-259 PO (12:36)
[2025-04-19 12:57] VITALS: RESP 16
--- NOTE | 2025-04-19 19:57 | DISCHARGE SUMMARY ---
Discharge Summary Providers to CC ~ Discharge Summary Admission Diagnosis: VOMITING Hospital Course DATE OF ADMISSION: 04/17/25 DATE OF DISCHARGE:04/19/25 CBC testing done on April 19, 2025 WBC 9.2 hemoglobin 13.6 hematocrit 40.3 sed rate 9.0. Serum chemistry done on April 19, 2025 sodium 134 potassium 4.0 creatinine 0.66 GFR 90. Lactic acid 0.8, normal liver enzymes. Procalcitonin 0.08. Urine testing positive for opioid, fentanyl, benzodiazepine and cannabinoids urine testing done on April 17 urine culture not indicated urine protein greater than 300 glucose 500 urine nitrate negative urine leukocyte esterase negative. CT ABDOMEN PELVISIMPRESSION: Mild left perinephric edema / stranding. Correlate for pyelonephritis /urinary tract infection. Overall the perinephric edema/ stranding is decreased from the previous examination. Nonobstructing left renal calculus measuring 3 mm. Pulmonary nodules up to 5 mm. Recommend follow-up per Fleischner society criteria. Endplate sclerotic changes at L4-5 which may represent sequela of degenerative disease. If there is concern for infection / osteomyelitis recommend obtaining MRI lumbar spine with and without contrast. Discharge Diagnosis\Comment: unspecified abdominal pain , Nausea, vomiting resolved , chronic cannabis use, Punctate nonobstructing left nephrolithiasis, uncontrolled diabetes mellitus, hypertension and osteomyelitis s/p surgical amputation of 5th right toe. Abnormal CT finding discussed with Urology specialist Dr. Sharma who is willing to follow patient in outpatient setting for nonobstructing Nonobstructing left renal calculus measuring 3 mm. Patient is discharged on p.o. antibiotics. Patient was afebrile urine testing not indicating any signs of acute UTI Operations\Procedures: none Consultants: none Complications: none Condition on DC: Stable New Medications: Ciprofloxacin HCl (Cipro) 500 Mg Tablet 1 TAB PO Q12H for 7 Days, #14 TAB Continued Medications: Amlodipine Besylate (Amlodipine Besylate) 5 Mg Tablet 2 TAB PO DAILY for 30 Days, #60 TAB 0 Refills Asenapine Maleate (Saphris) 5 Mg Tab.subl 1 TAB SL TID, TAB Atorvastatin Calcium* (Lipitor*) 40 Mg Tablet 1 TAB PO DAILY for 30 Days, #30 TAB Bupropion HCl (Wellbutrin Sr) 150 Mg Tablet.er 1 TAB PO DAILY for 30 Days, #60 TAB 0 Refills Divalproex Sodium (Depakote) 125 Mg Tablet.dr 1 TAB PO HS for 30 Days, #60 TAB 0 Refills Divalproex Sodium (Depakote) 250 Mg Tablet.dr 1 TAB PO BID for 30 Days, #60 TAB 0 Refills Ferrous Sulfate (Ferrous Sulfate) 325 Mg (65 Mg Iron) Tablet 1 TAB PO DAILY for 90 Days, #90 TAB 0 Refills Take 1 tablet by mouth on an empty stomach once daily Gabapentin (Gabapentin) 600 Mg Tablet 1 TAB PO Q8H for 30 Days, #90 TAB 0 Refills Hydralazine HCl (Hydralazine HCl) 50 Mg Tablet 0.5 TAB PO Q12H for 30 Days, #30 TAB 0 Refills Hydrocodone Bit/Acetaminophen 5/325 MG (Arrington 5/325 MG) 5 Mg/325 Mg Tablet 1-2 TAB PO Q6H PRN for pain, TAB Hydroxyzine Pamoate (Hydroxyzine Pamoate) 50 Mg Capsule 1 CAP PO Q6H PRN for PRN for 30 Days, #90 CAP 0 Refills Insulin Glargine,Hum.rec.anlog* (Lantus*) 100 Unit/1 Ml Vial 25 UNIT SQ HS for 30 Days, ML Losartan Potassium (Losartan Potassium) 50 Mg Tablet 2 TAB PO DAILY for 30 Days, #60 TAB Omeprazole Magnesium (Prilosec Otc) 20 Mg Tablet.dr 1 TAB PO BID, TAB Sodium Chloride (Sodium Chloride) 1,000 Mg Tablet.clara 1 TAB PO Q12H for 10 Days, #20 TAB 0 Refills Tizanidine Hcl (Zanaflex) 4 Mg Capsule 1 CAP PO Q8H PRN for muscle spasms, CAP Trazodone Hcl (Trazodone Hcl) 150 Mg Tablet 1 TAB PO HS for 30 Days, #30 TAB 0 Refills Discharge Summary: unspecified abdominal pain Nausea, vomiting, resolved Likely due to cannabinoid use or possible nephrolithiasis, pyelonephritis Patient on metoclopramide and Zofran p.r.n. CT abdomen and pelvis ordered and results reviewed Possible nephrolithiasis/pyelonephritis- Left flank pain Patient meeting SIRS criteria Patient currently recording no fevers Patient's WBC count slightly elevated 11.8 Procal normal Lactic acid slightly elevated 2.2- back to normal Patient started on fluids NS 100 cc/hour. on tamsulosin 0.4mg po HS Patient started on ceftriaxone 1 g IV daily for possible pyelonephritis Urine culture and sensitivity testing ordered Left perinephric edema may be seen with pyelonephritis. No hydronephrosis Abnormal CT finding discussed with Urology specialist Dr. Sharma who is willing to follow patient in outpatient setting for nonobstructing Nonobstructing left renal calculus measuring 3 mm. Patient is discharged on p.o. antibiotics. Patient was afebrile urine testing not indicating any signs of acute UTI Uncontrolled type 2 diabetes mellitus- Glucose on presentation 311 HbA1c on 04/09/2025- 8.4 Patient on hyperglycemia/hypoglycemia protocol Lantus 10 units, medium dose protocol POPPY Likely prerenal Creatinine 1.04 Baseline creatinine 0.58 on 04/11/2025 Patient on fluids NS 100 cc . Hypertension- Patient's blood pressure 191/95 Patient started on amlodipine 5 mg. home medication med rec is done. Substance abuse- U tox positive for opiates, fentanyl, benzodiazepines, cannabinoids. Substance use navigator consulted. she has been afebrile and getting discharged home in stable condition. Patient is seen and examined on the day of discharge. All labs, diagnostic workup and discharge plan discussed with patient and family members in detail before her discharge. All questions and queries answered to the best of my professional medical knowledge. Patient is able to ambulate well. Patient was cleared by Physical therapy team for home discharge senior software development manager involved in patient's discharge plan. Discharge instructions provided to the patientPatient needs follow-up with primary care physician in one week, repeat urine culture , CBC sed rate procalcitonin BMP in 3-5 days with PCP. Activity as tolerated. Please read the side effects of all your medication. Patient's diabetes is uncontrolled further management as per PCP including adjustment of insulin therapy.. Patient is strongly advised to stop cannabis use which can cause cyclic nausea vomiting and abdominal pain.patient needs to see pain specialist and urology specialist in outpatient setting . please contact Dr Sharma`s office for apointment for management of Nonobstructing left renal calculus measuring 3 mm.. Increase oral fluids more than 1500 mL per day. General-patient not in any acute distress, awake chronically ill-appearing, obese. HEENT-atraumatic normocephalic, neck supple without elevated JVD, no thyromegaly or carotid bruit. No lymphadenopathy bilaterally. Eyes-no icterus or pallor seen in eyes Chest-clear to auscultation bilaterally, breathing nonlabored no tachypnea, no wheezing, no crepitation, no crackles. Heart-S1-S2 normal, regular heart rate no murmur Abdomen bowel sounds positive on auscultation, soft nondistended, subjective tenderness present over upper abdomen on palpation no guarding, no rigidity Skin no active skin rash Neurology-grossly intact, nonfocal awake Extremity- no pedal edema able to move all 4 extremities, well healing right lower extremity wound. She is able to ambulate Psychiatry - patient is not confused or agitated cooperated during physical examination *Problems/Diagnosis: (1) Nausea and vomiting Status: Acute Total Time Spent on D/C: > 30 Minutes Date of Service: Apr 19, 2025 Billing Provider: ADIN STEWART MD Common Visit Codes: [id number] DISCH DAY >30min ADIN STEWART MD Apr 19, 2025 19:49
== END 2025-04-19 15:05 | disposition home or self-care (01) | DRG 422 ==
LOC: ER 15:22 → ED HOLD 19:57 → EDBEDREQ 22:34 → PCU 3S 04-18 07:40
PROVIDERS: ADMIT Internal Medicine; ATTEND Internal Medicine
PROC: BW211ZZ Computerized Tomography (CT Scan) of Abdomen and Pelvis using Low Osmolar Contrast (ICD-10-PCS; principal; 2025-04-18)
DX: E86.0 Dehydration (principal); I11.0 Hypertensive heart disease with heart failure; I50.9 Heart failure, unspecified; N17.9 Acute kidney failure, unspecified; E11.9 Type 2 diabetes mellitus without complications; N12 Tubulo-interstitial nephritis, not specified as acute or chronic; F12.90 Cannabis use, unspecified, uncomplicated; F31.9 Bipolar disorder, unspecified; J45.909 Unspecified asthma, uncomplicated; N20.0 Calculus of kidney; K21.9 Gastro-esophageal reflux disease without esophagitis; Z87.442 Personal history of urinary calculi; Z88.5 Allergy status to narcotic agent; Z88.8 Allergy status to other drugs, medicaments and biological substances; Z79.4 Long term (current) use of insulin; Z79.899 Other long term (current) drug therapy
CPT/HCPCS: 36415; 74177; 80053; 80305; 81001; 81025; 82948; 83605; 83690; 83735; 84145; 85025; 85651; 87081; 93005; 96365; 96372; 96375; 99285; A4615; A6196; A6446; A6449; G0378; J0360; J0696; J0780; J1200; J1630; J1644; J1815; J2270; J2405; J2470; J2765; J7030; J7040